=== PATIENT | male | born 1965 | race Caucasian/White ===

== ENCOUNTER 2020-02-27 08:01 | Inpatient (IN) | payer MEDICARE, MEDICAID, SELFPAY ==
[2020-02-27] VITALS (22 sets, daily range): BP systolic 90–129; BP diastolic 55–74; PULSE 60–100; RESP 11–29; TEMP 36.5–37.8; O2SAT 92–99; BMI 32.9
--- NOTE | ~2020-02-27 | XR_ITS ---
EXAMINATION: XR chest 1V portable DATE: 03/03/2020 06:23 INDICATION: Shortness of breath TECHNIQUE: frontal view of the chest was obtained. COMPARISON: Chest radiograph dated 03/01/2020 FINDINGS: Slight improvement in the diffuse bilateral interstitial, linear and airspace opacities relatively sp aring the subpleural lungs. No pneumothorax or definitive pleural effusion. Cardiomegaly. Couple surg ical clips in the epigastric region. IMPRESSION: 1. Slight improvement in perihilar predominant bilateral lung disease which could represent pulmonary edema and/or pneumonia, atelectasis or some combination thereof. 2. Cardiomegaly. Reviewed, dictated and finalized at location A. IMPRESSION: 1. Slight improvement in perihilar predominant bilateral lung disease which cou ld represent pulmonary edema and/or pneumonia, atelectasis or some combination thereof. 2. Cardiomegaly.
--- NOTE | ~2020-02-27 | XR_ITS ---
EXAMINATION: XR barium swallow modified EXAM DATE: 02/28/2020 14:52 INDICATION: Dysphagia. TECHNIQUE: Modified barium esophagram was performed by myself to administered fluoroscopy, in conjun ction with speech pathologist who administered barium in varying consistencies as per speech patholog ist documentation. This was recorded on tape. The DAP for this procedure was 0.9 Gycm2. FINDINGS: Oral stage: Adequate function. Pharyngeal phase: Adequate function. Laryngeal penetration: Trace, ejected. Aspiration: None. Laryngeal sensitivity: Present. IMPRESSION: Patient tolerated oral feedings in the upright position. Please refer to speech patholo gist findings and specific feeding recommendations. Reviewed, dictated and finalized at location A. IMPRESSION: Patient tolerated oral feedings in the upright position. Please r efer to speech pathologist findings and specific feeding recommendations.
--- NOTE | ~2020-02-27 | XR_ITS ---
XR chest 1V portable DATE: 03/06/2020 14:44 INDICATION: Shortness of breath TECHNIQUE: Portable AP chest on 03/06/2020 at 1443 hours COMPARISON: 03/03/2020 portable AP chest at 0553 hours FINDINGS: Cardiomegaly. There is pulmonary vascular congestion and redistribution, but diminished reese ateral pulmonary relatively central and lower pulmonary infiltrates since 03/03/2020 consistent with improvement of pulmonary edema. IMPRESSION: Improved but incompletely resolved pulmonary edema since 03/03/2020 Reviewed, dictated and finalized at location A.
--- NOTE | ~2020-02-27 | XR_ITS ---
EXAMINATION: XR chest 1V portable DATE: 03/01/2020 06:32 INDICATION: Pneumonia TECHNIQUE: frontal view of the chest was obtained. COMPARISON: Chest radiograph dated 02/27/2020 FINDINGS: Bilateral perihilar predominant opacities, right greater than left but with interval worsening on the left. No pleural effusion or pneumothorax. Cardiomegaly. IMPRESSION: 1. Worsening perihilar predominant bilateral lung disease with worsening on the left which could repr esent pneumonia and/or asymmetric pulmonary edema. 2. Cardiomegaly. Reviewed, dictated and finalized at location A. IMPRESSION: 1. Worsening perihilar predominant bilateral lung disease with worsening on the left which could represent pneumonia and/or asymmetric pulmonary edema. 2. Cardiomegaly.
--- NOTE | ~2020-02-27 | XR_ITS ---
EXAMINATION: XR chest 1V portable INDICATION: Shortness of breath and chest pain TECHNIQUE: Portable AP chest at 0917 hours COMPARISON: None available FINDINGS: There are diffuse opacities throughout the right lung and opacities of the left mid and low er lung zones. No pleural effusion or pneumothorax is identified. The cardiomediastinal silhouette is normal for technique. IMPRESSION: 1. Diffuse opacities of the right lung and left mid and lower lung zones, consistent with pneumonia v ersus asymmetric pulmonary edema. Reviewed, dictated and finalized at location B. IMPRESSION: 1. Diffuse opacities of the right lung and left mid and lower lung zones, consi stent with pneumonia versus asymmetric pulmonary edema.
--- NOTE | 2020-02-27 08:30 | PC.NURSE ---
This RN unable to obtain IV access. Shiloh Counts called.
--- NOTE | 2020-02-27 08:53 | PC.NURSE ---
Respiratory here for pt
[2020-02-27 09:02] LABS: Alveolar/Arterial O2 Gradient 107.5 mmHg; Base Excess ABG 0.3 mEq/l (+/-2.0); Carboxyhemoglobin 0.4 % THb (0-2.0); Fractional Inspired Oxygen 30 %; Oxygen Content ABG 15.2 %vol (16.0-22.0); Oxygen Saturation ABG 90.6 % (95.0-100.0); Oxyhemoglobin 89.3 % THb (90.0-100.0); PCO2 ABG 40.8 mmHg (35.0-45.0); PO2 ABG 58.5 mmHg (80.0-100.0); PO2 FiO2 Ratio Arterial Blood 1.95 %; Reduced Hemoglobin 10.3 %THb (0-5.0); Total Hemoglobin 12.1 g/dL (12.0-18.0); pH ABG 7.406 (7.350-7.450)
[2020-02-27 09:03] LABS: Device NON-INVASIVE VENT; Site Drawn LEFT BRACHIAL
[2020-02-27 09:04] LABS: Non-Invasive Expiratory Pressure 10 CMH2O; Non-Invasive Inspiratory Pressure 18 CMH2O; Non-Invasive Vent Rate 4 /MIN
[2020-02-27 09:07] LABS: Basophils Percent Auto 0.4 % (0.2-1.2); Eosinophils Absolute Auto 0.2 K/mm3 (0-0.3); Eosinophils Percent Auto 3.6 % (0-4.4); Hematocrit 37.6 % (42.0-52.0); Hemoglobin 11.6 g/dL (14.0-18.0); Lymphocytes Absolute Auto 0.76 K/mm3 (0.9-3.2); Lymphocytes Percent Auto 16.1 % (18.3-44.2); Mean Corpuscular HGB Conc 30.9 g/dl (32-36); Mean Corpuscular Hemoglobin 25.2 pg (26-34); Mean Corpuscular Volume 81.6 fl (80-100); Mean Platelet Volume 9.6 fl (7.4-10.4); Monocytes Absolute Auto 0.1 K/mm3 (0.1-0.6); Monocytes Percent Auto 1.7 % (2.6-8.5); Neutrophils Absolute Auto 3.7 K/mm3 (1.3-6.7); Neutrophils Percent Auto 78.2 % (45.5-73.1); Platelet Count Result 313 k/mm3 (150-375); Red Blood Count 4.61 M/mm3 (4.6-6.20); Red Cell Distribution Width 14.4 % (11.5-14.5); White Blood Count 4.7 K/mm3 (4.5-10.0)
--- NOTE | 2020-02-27 09:08 | ED.SOB ---
HPI - SOB/Dyspnea General Chief Complaint: Shortness of Breath/Dyspnea Stated Complaint: SOB/CP History of Present Illness HPI Narrative: Patient is a 54-year-old male who presents the ER with sudden onset shortness of breath. Reports he began this morning. He has history of coronary disease as well as CHF and COPD. He is oxygen dependent at home on 4L , he was hypoxic in the 80s and O2 increased by EMS. He has some central pressure and tightness related to this shortness of breath. He is febrile. He reports 2 months ago he was admitted to [facility] for pneumonia. He was coded tested several times and it was negative each time. No known exposures at this time. Related Data Home Medications Medication Instructions Recorded Confirmed amitriptyline 150 02/27/20 amitriptyline 150 mg PO HS 02/27/20 02/27/20 amlodipine 5 02/27/20 aspirin 81 02/27/20 atorvastatin 40 mg PO DAILY 02/27/20 02/27/20 hydrochlorothiazide 12.5 02/27/20 iron 65 mg 02/27/20 losartan 100 mg PO DAILY 02/27/20 02/27/20 metoprolol tartrate 25 mg PO DAILY 02/27/20 02/27/20 morphine PO 02/27/20 pantoprazole PO 02/27/20 paroxetine HCl 40 mg PO QAM 02/27/20 02/27/20 Allergies Allergy/AdvReac Type Severity Reaction Status Date / Time losartan Allergy Unknown Verified 02/27/20 08:32 warfarin [From Coumadin] Allergy Other Verified 02/27/20 08:32 Review of Systems Review of Systems: All systems reviewed & are unremarkable except as noted in HPI and below Constitutional: Constitutional: Denies chills, Reports fever(s) and Reports weakness ENT: Denies nasal congestion and Denies sore throat Cardiovascular: Cardiovascular: Reports chest pain and Denies radiating jaw, neck or arm pain Respiratory: Respiratory: Reports chest congestion, Reports cough and Reports dyspnea Gastrointestinal: Gastrointestinal: Denies abdominal pain, Denies nausea and Denies vomiting [facility] Past Medical History Medical History (Updated 02/27/20 @ 13:04 by Shyam Mason MD) COPD (chronic obstructive pulmonary disease) Coronary artery disease History of CHF (congestive heart failure) History of left heart catheterization Hyperlipidemia Hypertension Obstructive sleep apnea Pulmonary embolism Recurrent pneumonia Surgical History Surgical History (Updated 02/27/20 @ 13:00 by Shyam Mason MD) History of back surgery History of percutaneous coronary intervention 6 cardiac stents Social History Social History (Updated 02/27/20 @ 13:00 by Shyam Mason MD) Substance use: never Gender identity (if verbalized by the patient): Male Exam Narrative: Exam Narrative: GENERAL: ill-appearing, well-nourished, and in moderate distress. HEAD: Normocephalic, atraumatic. EYES: PERRL and EOMI. CHEST: Coarse rales throughout, moderate respiratory distress. HEART: Regular rate and rhythm. Normal peripheral pulses. ABDOMEN: Soft, nontender, nondistended. EXTREMITIES: Normal range of motion. No edema. SKIN: Cool, pale, diaphoretic, no rash. NEURO: Alert and oriented x3. PSYCH: Appropriately anxious with normal thought content. Course Vital Signs Vital signs: Vital Signs Temperature 100.1 F H 02/27/20 08:18 Pulse Rate 81 02/27/20 08:18 Respiratory Rate 28 H 02/27/20 08:18 Blood Pressure 129/74 02/27/20 08:18 Pulse Oximetry 93 02/27/20 08:18 Temperature 100.1 F H 02/27/20 08:18 Pulse Rate 66 02/27/20 12:37 Respiratory Rate 11 L 02/27/20 12:37 Blood Pressure 99/61 L 02/27/20 12:20 Pulse Oximetry 94 02/27/20 12:37 MDM - SOB/Dyspnea Lab Data Result diagrams: 02/27/20 08:50 02/27/20 08:50 Labs: Lab Results 02/27/20 02/27/20 02/27/20 Range/Units 08:50 08:50 08:50 WBC 4.7 (4.5-10.0) K/mm3 RBC 4.61 (4.6-6.20) M/mm3 Hgb 11.6 L (14.0-18.0) g/dL Hct 37.6 L (42.0-52.0) % MCV 81.6 (80-100) fl MCH 25.2 L (26-34) pg MCHC 30.9 L (32-36) g/dl RDW 14.4
[2020-02-27 09:16] LABS: INR 1.1; Partial Thromboplastin Time 22.3 SECONDS (22.3-36.8); Prothrombin Time 13.7 Seconds (11.1-14.7)
[2020-02-27 09:18] LABS: Lactic Acid Reflex 3.7 mmol/L (0.7-2.1)
[2020-02-27 09:19] LABS: Alanine Aminotransferase 17 U/L (4-50); Albumin Level 3.9 g/dL (3.5-5.1); Alkaline Phosphatase 101 U/L (38-126); Anion Gap 11.4 mmol/L (7-16); Aspartate Amino Transferase 23 U/L (17-59); Bilirubin,Total 0.5 mg/dL (0.2-1.3); Blood Urea Nitrogen 15 mg/dL (9-20); Calcium 8.3 mg/dL (8.4-10.2); Carbon Dioxide 28 mmol/L (22-30); Chloride 102 mmol/L (98-107); Estimated CRCL calculation 76 ml/min; Estimated Glomerular Filt Rate > 60; Glucose 151 mg/dL (75-110); Potassium 3.4 mmol/L (3.4-5.0); Sodium 138 mmol/L (137-145)
[2020-02-27 09:28] LABS: NT Pro B Type Natriuretic Pept 351 PG/ML (5-100)
[2020-02-27 09:54] LABS: Troponin I 0.043 ng/mL (0.000-0.034)
[2020-02-27] MEDS: ASPIRIN 81 MG CHEWABLE TABLET 324 MG PO (10:42)
--- NOTE | 2020-02-27 10:57 | ECG_ITS ---
Measurements Intervals [place] Rate: 84 P: 40 GA: 106 QRS: 19 QRSD: 86 T: 65 QT: 387 QTc: 458 Interpretive Statements SINUS OR ECTOPIC ATRIAL RHYTHM WITH SHORT GA INTERVAL ANTEROLATERAL INFARCT, AGE INDETERMINATE HIGH LATERAL INFARCT, AGE INDETERMINATE BASELINE ARTIFACT- II, III, AVR, AVL, AVF, V1-V6 ABNORMAL ECG Electronically Signed On 02-27-2020 11:08:16 CDT by Yanick Toure D.O.
[2020-02-27] MEDS: SODIUM CHLORIDE 0.9% IV 1,000 ML 999 ML IV CONT (11:26)
[2020-02-27 11:54] LABS: CRP 6.6 mg/dL (<1.0); Lactate Dehydrogenase 526 U/L (313-618)
[2020-02-27 12:07] LABS: Reflex Lactic Acid Yes or No Add Lactic
[2020-02-27 13:12] LABS: Lactic Acid 3.3 mmol/L (0.7-2.1)
--- NOTE | 2020-02-27 13:40 | ECG_ITS ---
Measurements Intervals [place] Rate: 66 P: 37 VT: 165 QRS: 16 QRSD: 93 T: 78 QT: 433 QTc: 455 Interpretive Statements SINUS RHYTHM ANTEROLATERAL INFARCT, AGE INDETERMINATE HIGH LATERAL INFARCT, AGE INDETERMINATE ABNORMAL ECG Electronically Signed On 02-27-2020 15:45:19 CDT by Yanick Toure D.O.
--- NOTE | 2020-02-27 14:30 | PM.IMHP ---
H&P: HPI History of Present Illness Date/Time: 02/27/20 14:30 Chief complaint: Shortness of breath. Narrative: Moises Seth Jr is a 54-year-old male with history of coronary artery disease, congestive heart failure, paroxysmal atrial fibrillation, COPD, chronic respiratory failure on p.r.n. home oxygen, and pulmonary embolism on Xarelto who presented to the emergency department earlier this morning via EMS from home for evaluation of shortness of breath. This morning he felt short of breath upon waking, perhaps even being woken from sleep due to the shortness of breath. He wears 4 liters of oxygen at nighttime and despite this, he felt like her could not get in enough oxygen. Additionally, he was also experiencing central chest pressure/tightness which he relates to the shortness of breath. He was started on BiPAP in the emergency department and has been on that intermittently throughout the day as needed. Also, he continues to have intermittent midsternal chest pressure, which does not radiate. He gives no aggravating or alleviating factors with regards to that, but does mention that the pain is similar to when he has had cardiac stents in the past. He has also had intermittent subjective fever and chills. He has a wet cough always and this is unchanged. He goes on to say that he has been hospitalized for pneumonia about every 3 months in the last year. With further questioning, it sounds like he suffers from pretty significant GERD and has frequent dysphagia with liquids. At one point time there was concerns for aspiration, but he is not certain whether not he actually had a swallow study. He was last hospitalized at [facility] in [place] at the beginning of December 2019, with pneumonia. At that time he was also had a cardiac catheterization, which apparently showed no significant findings. At the time my evaluation he is feeling better on the BiPAP and he is hungry. He is not currently having chest pain. No pleuritic pain, orthopnea, PND, or lower extremity edema. He is compliant with his home medications. He denies sick contacts. No sinus congestion, rhinorrhea, otalgia, or odynophagia. He denies nausea, vomiting, and diarrhea. Of note, he has never been seen at this facility before as he and his recently moved to the area. Review of Systems Review of Systems: Narrative: Twelve systems were reviewed with pertinent positives and negatives as per HPI. No headache. No recent travel or sick contacts. He suffers from pretty significant GERD and it sounds as though he had endoscopy done several years back and in fact had a Keith fundoplication, without benefit. He denies having history of sleep apnea, but is on 4 liters nasal cannula at nighttime. It does not sound like he ever wore a CPAP. He does have a history of pulmonary embolism for which she was initially on warfarin and he is now on Xarelto. Except as documented, all other systems were reviewed and are negative [facility] Past Medical History Medical History (Updated 02/27/20 @ 19:09 by Steph Vasquez PA-C) Chronic anemia Chronic back pain On long-term opioid therapy. Chronic obstructive pulmonary disease Chronic respiratory failure with hypoxia On 4 liters nasal cannula at nighttime. Congestive heart failure Coronary artery disease Gastroesophageal reflux disease Hyperlipidemia Hypertension Pulmonary embolism Surgical History Surgical History (Updated 02/27/20 @ 18:59 by Steph Vasquez PA-C) History of back surgery x3. History of fasciotomy Right forearm. History of left heart catheterization History of Keith fundoplication History of percutaneous coronary intervention Cardiac stent x6. Family History Family History Father Diabetes mellitus Mother Hypertension Congestive heart failure Social History Social History (Updated 02/27/20 @ 19:00 by Steph Vasquez PA-C) Socia
[2020-02-27] MEDS: HEPARIN SODIUM 5,000 UNITS/ML VIAL 4000 UNITS IV PUSH (14:41)
--- NOTE | 2020-02-27 14:45 | PC.NURSE ---
Pts manual BP 90/60. Informed Dr. Mason of this
--- NOTE | 2020-02-27 15:12 | PC.NURSE ---
Respiratory here to take pt off BIPAP and place on high flow NC
--- NOTE | 2020-02-27 15:14 | PC.NURSE ---
Pt taken off BIPAP and placed on High flow NC per Dr. Mason.
--- NOTE | 2020-02-27 15:27 | PC.NURSE ---
Pt placed back on BIPAP due to pt not keeping NC in nose.
--- NOTE | 2020-02-27 16:57 | ADMIMU ---
This patient, Moises Seth Jr, was admitted to IMU status, and placed in Intensive Care Unit-7. Patient/family oriented to hospital policies and general routines including ID bracelet, bed and alarms, visiting hours, pain management, procedures, bathroom and other care routines, personal items, smoking policy, room service/diet, and visiting hours. Valuables list has been completed. Information on how to activate the Rapid Response Team has been discussed. Patient/Family are encouraged to report perceived risks to care and to ask questions if they do not understand what they are told or what they should do.
[2020-02-27] MEDS: HEPARIN SOD/D5W 100 UNITS/ML 25,000 UNITS/250 ML BAG 9 UNITS IV CONT (18:03)
[2020-02-27] MEDS: SODIUM CHLORIDE 0.9% IV 1,000 ML 100 ML IV CONT (18:06)
[2020-02-27] MEDS: PANTOPRAZOLE 40 MG TABLET PO (20:13)
[2020-02-27] MEDS: AMITRIPTYLINE HCL 25 MG TABLET 150 MG PO (20:13)
[2020-02-27] MEDS: GABAPENTIN 400 MG CAPSULE 800 MG PO (20:13)
[2020-02-28] VITALS (15 sets, daily range): BP systolic 114–157; BP diastolic 73–97; PULSE 49–64; RESP 11–21; TEMP 35.7–36.6; O2SAT 92–100
[2020-02-28 00:21] LABS: Partial Thromboplastin Time 37.4 SECONDS (22.3-36.8)
[2020-02-28] MEDS: HEPARIN SODIUM 5,000 UNITS/ML VIAL 4000 UNITS IV PUSH ×2 (00:55→15:46)
[2020-02-28] MEDS: GABAPENTIN 400 MG CAPSULE 800 MG PO ×3 (06:21→21:31)
[2020-02-28 07:51] LABS: Basophils Absolute Auto 0.1 K/mm3 (0.0-0.1); Basophils Percent Auto 0.3 % (0.2-1.2); Hematocrit 27.4 % (42.0-52.0); Hemoglobin 8.7 g/dL (14.0-18.0); Immature Granulocyte Absolute 0.16 K/mm3 (0.00-0.031); Immature Granulocyte Percent A 0.8 % (0-0.5); Lymphocytes Percent Auto 6.3 % (18.3-44.2); Mean Corpuscular HGB Conc 31.8 g/dl (32-36); Mean Corpuscular Hemoglobin 25.4 pg (26-34); Mean Corpuscular Volume 80.1 fl (80-100); Mean Platelet Volume 9.8 fl (7.4-10.4); Monocytes Absolute Auto 0.7 K/mm3 (0.1-0.6); Monocytes Percent Auto 3.4 % (2.6-8.5); Neutrophils Absolute Auto 18.3 K/mm3 (1.3-6.7); Neutrophils Percent Auto 89.2 % (45.5-73.1); Platelet Count Result 233 k/mm3 (150-375); Red Blood Count 3.42 M/mm3 (4.6-6.20); Red Cell Distribution Width 14.5 % (11.5-14.5); White Blood Count 20.5 K/mm3 (4.5-10.0)
[2020-02-28 08:03] LABS: Lactic Acid 1.1 mmol/L (0.7-2.1)
[2020-02-28 08:09] LABS: Partial Thromboplastin Time 59.5 SECONDS (22.3-36.8)
[2020-02-28 08:16] LABS: Alanine Aminotransferase 18 U/L (4-50); Albumin Level 3.2 g/dL (3.5-5.1); Alkaline Phosphatase 55 U/L (38-126); Anion Gap 6 mmol/L (8-16); Aspartate Amino Transferase 60 U/L (17-59); Bilirubin,Total 0.5 mg/dL (0.2-1.3); Blood Urea Nitrogen 22 mg/dL (9-20); CRP 23.9 mg/dL (<1.0); Calcium 8.4 mg/dL (8.4-10.2); Carbon Dioxide 26 mmol/L (22-30); Chloride 106 mmol/L (98-107); Estimated CRCL calculation 107 ml/min; Estimated Glomerular Filt Rate > 60; Glucose 108 mg/dL (75-110); Potassium 4.3 mmol/L (3.4-5.0); Sodium 138 mmol/L (137-145)
[2020-02-28] MEDS: HEPARIN SODIUM 5,000 UNITS/ML VIAL 3000 UNITS IV PUSH (08:43)
[2020-02-28] MEDS: ATORVASTATIN 40 MG TABLET PO (08:50)
[2020-02-28] MEDS: ASPIRIN 81 MG CHEWABLE TABLET PO (08:50)
[2020-02-28] MEDS: FERROUS SULFATE 324 MG TABLET PO (08:52)
[2020-02-28] MEDS: PARoxetine 20 MG TABLET 40 MG PO (08:52)
[2020-02-28] MEDS: METOPROLOL SUCCINATE EXT REL 25 MG TABCR PO (08:53)
[2020-02-28] MEDS: PANTOPRAZOLE 40 MG TABLET PO ×2 (08:53→21:30)
[2020-02-28] MEDS: LOSARTAN POTASSIUM 100 MG TABLET PO (08:54)
[2020-02-28] MEDS: FLUoxetine HCL 20 MG CAPSULE 40 MG PO (08:54)
[2020-02-28 09:19] LABS: Thyroid Stimulating Hormone Reflex 0.739 uIU/mL (0.465-4.68)
[2020-02-28 09:50] LABS: Hemoglobin A1C 5.2 % (<5.7)
--- NOTE | 2020-02-28 13:44 | PM.CNCAR ---
Assessment and Plan Assessment and plan (1) Gastroesophageal reflux disease: Code(s): K21.9 - Gastro-esophageal reflux disease without esophagitis Status: Acute (2) Coronary artery disease: Code(s): I25.10 - Atherosclerotic heart disease of [place] coronary artery without angina pectoris Status: Acute Assessment and Plan: pt with Hx of CAD recent cath negative cont medical management (3) Congestive heart failure: Code(s): I50.9 - Heart failure, unspecified Status: Acute Assessment and Plan: Will arrange for ECHO to eval LV function when feasible cont gentle diuresis monitor electolytes and kidney function (4) Hypertension: Code(s): I10 - Essential (primary) hypertension Status: Acute Assessment and Plan: Well controlled cont meds (5) Hyperlipidemia: Code(s): E78.5 - Hyperlipidemia, unspecified Status: Acute (6) Pneumonia: Code(s): J18.9 - Pneumonia, unspecified organism Status: Acute Assessment and Plan: management per PC (7) Sepsis: Code(s): A41.9 - Sepsis, unspecified organism Status: Acute Assessment and Plan: WBC > 20k (8) Respiratory failure: Code(s): J96.90 - Respiratory failure, unspecified, unspecified whether with hypoxia or hypercapnia Status: Acute (9) Person under investigation for COVID-19: Code(s): Z20.828 - Contact with and (suspected) exposure to other viral communicable diseases Status: Acute (10) Elevated troponin: Code(s): R79.89 - Other specified abnormal findings of blood chemistry Status: Acute Assessment and Plan: Probably due to demand ischemia in setting of sepsis EKG without acute changes agree with Heparin drip for 48 hrs treat underlying infectious process Thank you for consult. Chandana davis. History of Present Illness History of Present Illness Consult date/time: 02/28/20 13:44 Mr. Seth is a 54 y/o Mwith PMH of CAD, CHF, COPD on home oxygen who presented to [facility] due to SOB. Pt is a poor historian. Hx is obtained predominantly from medical records and nursing staff. Upon current presentation pt was desaturating to 80's and was started on BIPAP and then admitted to ICU as COVID PUI. CXR showed R - sided pneumonia. Labs showed lactic acidosis and elevated troponin. EKG no acute changes. Pt had 2 months ago pneumonia. At that time was hospitalized at [facility] in [facility]. He had cath which was negative during that hospitalization. He moved recently to area close to [facility]. Pt was evaluated while in ICU, d/w pt's nurse. Reason For Visit: Shortness of breath. [facility] Past Medical History Medical History (Updated 02/27/20 @ 19:09 by Steph Vasquez PA-C) Chronic anemia Chronic back pain On long-term opioid therapy. Chronic obstructive pulmonary disease Chronic respiratory failure with hypoxia On 4 liters nasal cannula at nighttime. Congestive heart failure Coronary artery disease Gastroesophageal reflux disease Hyperlipidemia Hypertension Pulmonary embolism Surgical History Surgical History (Updated 02/27/20 @ 18:59 by Steph Vasquez PA-C) History of back surgery x3. History of fasciotomy Right forearm. History of left heart catheterization History of Keith fundoplication History of percutaneous coronary intervention Cardiac stent x6. Family History Family History Father Diabetes mellitus Mother Hypertension Congestive heart failure Social History Social History (Updated 02/27/20 @ 19:00 by Steph Vasquez PA-C) Social History: Surrogate decision maker: Jenny Seth, spouse. Code status: Full code. Smoking status: Former smoker Alcohol intake: never Substance use: never Substance use type: does not use Additional living arrangements comments: Lives in [facility]
[2020-02-28 13:48] LABS: SARS-CoV-2 RNA PCR Negative
--- NOTE | 2020-02-28 15:16 | PCSTNOTE ---
Modified barium swallow study complete. Please see ST evaluation for details and diet recommendations.
[2020-02-28] MEDS: BENZONATATE 100 MG CAPSULE 200 MG PO ×2 (15:39→21:31)
[2020-02-28] MEDS: HEPARIN SOD/D5W 100 UNITS/ML 25,000 UNITS/250 ML BAG 14 UNITS IV CONT (15:40)
--- NOTE | 2020-02-28 16:19 | ECHO_ITS ---
Patient Info Name: Moises Seth Age: 54 years : 1965 Gender: Male Ht: 68 in Wt: 200 lbs BSA: 2.11 m2 HR: 59 bpm Technical Quality: Fair Exam Date: 02/28/2020 10:52 AM Exam Location: [facility] Pulmonary Patient Status: Inpatient Admit Date: 02/28/2020 Staff Ordering Physician: Steph Vasquez PA-C Rock Crushing Machine Operator: Oliva Crump RDCS Attending Provider: Reji Johansen MD Referring Physician: Pedro VALDEZ; Exam Type: CA echo dop color flow w con Study Info Complete two-dimensional, color flow and Doppler transthoracic echocardiogram is performed with contrast to opacify the left ventricle and to improve the deliniation of the left ventricle endocardial borders. Contrast/Agitated Saline Contrast/Ag. Saline: Definity Amount: 2.00 ml Summary 1. Technically difficult study with limited views. 2. Left ventricular chamber dimension is normal. 3. Left ventricular wall thickness is borderline increased. 4. Left ventricular systolic function is normal with an ejection fraction by Biplane Method of Discs of 60 %. 5. Right ventricular chamber dimension is mildly enlarged. 6. Right ventricular systolic function is normal. 7. Left atrial chamber dimension is moderately enlarged. Left Ventricle Left ventricular chamber dimension is normal. Left ventricular wall thickness is borderline increased. Left ventricular systolic function is normal with an ejection fraction by Biplane Method of Discs of 60 %. Normal diastolic function for age. Right Ventricle Right ventricular wall thickness is normal. Right ventricular chamber dimension is mildly enlarged. Right ventricular systolic function is normal. Ventricular Septum Intact interventricular septum visualized by 2D imaging. Left Atria Left atrial chamber dimension is moderately enlarged. Right Atria Right atrial chamber dimension is normal. Atrial Septum Interatrial septum not well visualized by 2D imaging. Aortic Valve Aortic valve is not well visualized. There is no aortic valve regurgitation. There is no aortic valve stenosis. Pulmonic Valve Pulmonary valve is not well visualized. There is trace pulmonic regurgitation. There is no pulmonic valve stenosis. Mitral Valve Mitral valve is not well visualized. There is trace mitral valve regurgitation. There is no mitral valve stenosis. Tricuspid Valve The tricuspid valve is not well visualized. There is mild tricuspid valve regurgitation. There is no significant tricuspid valve stenosis. No pulmonary hypertension, estimated pulmonary arterial systolic pressure is 17 mmHg. Pericardium/Pleural Pericardium is normal in appearance with no evidence for significant pericardial effusion. Inferior Vena Cava Inferior vena cava is not well visualized. Aorta The aortic root size at the sinus of Valsalva is normal. Left Ventricular Outflow Tract Name Value Normal LVOT 2D LVOT Diameter 2.53 cm LVOT Doppler LVOT Peak Gradient 5 mmHg LVOT Mean Gradient 2 mmHg LVOT VTI
--- NOTE | 2020-02-28 17:00 | PM.IMPN ---
Progress Note: A&P Assessment and Plan (1) Sepsis: Code(s): A41.9 - Sepsis, unspecified organism Status: Acute Assessment and Plan: Present on admission and supported by low-grade fever and elevated lactic acid level in the setting of pneumonia. Blood pressures have also been a little soft. Given history of congestive heart failure, he will receive cautious IV fluid rehydration. He received 1 liter normal saline emergency department with some improvement in his lactic acid level. At this time I will give him another liter over the course of several hours and repeat lactic acid level to ensure it has normalized. Blood cultures have been obtained and are pending. 02/28/20 17:00 Patient is a 54-year-old male with chronic respiratory failure on home oxygen 4 L nasal cannula, with history of COPD, coronary artery disease, congestive heart failure, recently was admitted [facility] 2 months ago with pneumonia, early today at home while on 4 L oxygen patient felt short of breath and unable to get enough oxygen EMS was called and patient was brought to emergency depart he was placed on BiPAP which did improve his symptoms, patient is diagnosed with pneumonia and being treated with Rocephin azithromycin, he tropes elevated and climbed patient is seen by licensed journeyman electrician suspect demand ischemia due to hypoxia unlikely acute coronary syndrome however patient is on heparin, for his COPD patient is being treated with dexamethasone and updraft and will continue to monitor, currently patient is feeling much better compared to when he arrived denies any chest pain shortness of breath palpitation fever or chills. (2) Person under investigation for COVID-19: Code(s): Z20.828 - Contact with and (suspected) exposure to other viral communicable diseases Status: Acute Assessment and Plan: SARS-CoV-2 by PCR swab pending at this time. He has been started on dexamethasone 6 milligrams q.day. In the interim, he will be placed in contact, droplet, and airborne isolation. (3) Acute and chronic respiratory failure with hypoxia: Code(s): J96.21 - Acute and chronic respiratory failure with hypoxia Status: Acute Assessment and Plan: Patient on 4 liters nasal cannula p.r.n. at home, requiring 5 liters to maintain oxygen saturations at this time. (4) Elevated troponin: Code(s): R79.89 - Other specified abnormal findings of blood chemistry Status: Acute Assessment and Plan: Initially the patient thought his chest tighness was due to shortness of breath, however his troponin has jumped. His Xarelto is currently on hold, and he has been started on a heparin drip per cardiology request. Records will be requested from [facility] given reports of fairly recent cardiac catheterization. (5) Pneumonia: Code(s): J18.9 - Pneumonia, unspecified organism Status: Acute Assessment and Plan: He has been started on azithromycin and ceftriaxone for possible bacterial pneumonia, pending SARS-CoV-2 testing. Obtain sputum culture and urine studies to send for Legionella and strep pneumoniae antigens. Swallow study in a.m. to rule out aspiration, given reports of dysphagia with liquids. (6) Chronic anemia: Code(s): D64.9 - Anemia, unspecified Status: Acute Assessment and Plan: On daily iron supplementation. (7) Hypertension: Code(s): I10 - Essential (primary) hypertension Status: Acute Assessment and Plan: Blood pressures were reviewed and they have been a bit soft, in the 90s to l
--- NOTE | 2020-02-28 18:33 | PC.NURSE ---
This patient, Moises Seth Jr, was transferred to [ [id number]] on 02/28/20 at 1834. Personal belongings sent with patient. Belongings list checked and signed with receiving [ ]. Report given to [ TANNA Zuniga]. Appropriate documentation sent with patient.
--- NOTE | 2020-02-28 18:34 | PC.NURSE ---
This patient, Moises Seth Jr, was received from ICU 7 on 02/28/20 at 1715. Report taken from Natasha CISSE Personal belongings list checked and signed. Patient/family oriented to unit policies and routines
[2020-02-28] MEDS: MORPHINE SULFATE 30 MG TABCR PO (21:29)
[2020-02-28] MEDS: guaiFENesin 12 HR 600 MG TABCR PO (21:30)
[2020-02-28] MEDS: AMITRIPTYLINE HCL 25 MG TABLET 150 MG PO (21:31)
[2020-02-28 22:50] LABS: Partial Thromboplastin Time 72.9 SECONDS (22.3-36.8)
[2020-02-29] VITALS (15 sets, daily range): BP systolic 121–150; BP diastolic 74–92; PULSE 45–90; RESP 14–26; TEMP 36.1–36.6; O2SAT 93–100
[2020-02-29 04:55] LABS: Hematocrit 28.6 % (42.0-52.0); Hemoglobin 8.9 g/dL (14.0-18.0); Mean Corpuscular HGB Conc 31.1 g/dl (32-36); Mean Corpuscular Hemoglobin 25.4 pg (26-34); Mean Corpuscular Volume 81.7 fl (80-100); Mean Platelet Volume 10.3 fl (7.4-10.4); Platelet Count Result 271 k/mm3 (150-375); Red Cell Distribution Width 14.6 % (11.5-14.5); White Blood Count 22.2 K/mm3 (4.5-10.0)
[2020-02-29] MEDS: HEPARIN SODIUM 5,000 UNITS/ML VIAL 3000 UNITS IV PUSH (05:19)
[2020-02-29] MEDS: HEPARIN SOD/D5W 100 UNITS/ML 25,000 UNITS/250 ML BAG 19 UNITS IV CONT ×2 (05:31→18:26)
[2020-02-29] MEDS: GABAPENTIN 400 MG CAPSULE 800 MG PO ×3 (05:45→21:34)
[2020-02-29] MEDS: BENZONATATE 100 MG CAPSULE 200 MG PO ×3 (05:45→21:34)
[2020-02-29] MEDS: MORPHINE SULFATE 30 MG TABCR PO ×3 (08:10→21:33)
[2020-02-29] MEDS: PARoxetine 20 MG TABLET 40 MG PO (08:11)
[2020-02-29] MEDS: FLUoxetine HCL 20 MG CAPSULE 40 MG PO (08:11)
[2020-02-29] MEDS: PANTOPRAZOLE 40 MG TABLET PO ×2 (08:11→21:34)
[2020-02-29] MEDS: LOSARTAN POTASSIUM 100 MG TABLET PO (08:11)
[2020-02-29] MEDS: guaiFENesin 12 HR 600 MG TABCR PO ×2 (08:11→21:34)
[2020-02-29] MEDS: METOPROLOL SUCCINATE EXT REL 25 MG TABCR PO (08:11)
[2020-02-29] MEDS: ATORVASTATIN 40 MG TABLET PO (08:12)
[2020-02-29] MEDS: ASPIRIN 325 MG TABLET PO (08:12)
[2020-02-29] MEDS: FERROUS SULFATE 324 MG TABLET PO (08:12)
[2020-02-29 09:42] LABS: Anion Gap 5 mmol/L (8-16); Blood Urea Nitrogen 23 mg/dL (9-20); Calcium 8.5 mg/dL (8.4-10.2); Carbon Dioxide 27 mmol/L (22-30); Chloride 105 mmol/L (98-107); Estimated CRCL calculation 108 ml/min; Estimated Glomerular Filt Rate > 60; Glucose 108 mg/dL (75-110); Potassium 3.8 mmol/L (3.4-5.0); Sodium 137 mmol/L (137-145)
[2020-02-29 12:28] LABS: Partial Thromboplastin Time 89.8 SECONDS (22.3-36.8)
--- NOTE | 2020-02-29 13:00 | PM.IMPN ---
Progress Note: A&P Assessment and Plan (1) Sepsis: Code(s): A41.9 - Sepsis, unspecified organism Status: Acute Assessment and Plan: Present on admission and supported by low-grade fever and elevated lactic acid level in the setting of pneumonia. Blood pressures have also been a little soft. Given history of congestive heart failure, he will receive cautious IV fluid rehydration. He received 1 liter normal saline emergency department with some improvement in his lactic acid level. At this time I will give him another liter over the course of several hours and repeat lactic acid level to ensure it has normalized. Blood cultures have been obtained and are pending. 02/29/20 13:00 Patient is a 54-year-old male with chronic respiratory failure on home oxygen 4 L nasal cannula, with history of COPD, coronary artery disease, congestive heart failure, recently was admitted [facility] 2 months ago with pneumonia, early today at home while on 4 L oxygen patient felt short of breath and unable to get enough oxygen EMS was called and patient was brought to emergency depart he was placed on BiPAP which did improve his symptoms, patient is diagnosed with pneumonia and being treated with Rocephin azithromycin, he tropes elevated and climbed patient is seen by account executive metalworking suspect demand ischemia due to hypoxia unlikely acute coronary syndrome however patient is on heparin, for his COPD patient is being treated with dexamethasone and updraft, today patient is feeling much better not a short of breath, denies any chest pain palpitation fever or chills patient remains clinically stable repeat chest x-ray tomorrow, patient will be seen by account executive metalworking tomorrow for further recommendation regarding his elevated tropes, will plan tomorrow (2) Person under investigation for COVID-19: Code(s): Z20.828 - Contact with and (suspected) exposure to other viral communicable diseases Status: Acute Assessment and Plan: SARS-CoV-2 by PCR swab pending at this time. He has been started on dexamethasone 6 milligrams q.day. In the interim, he will be placed in contact, droplet, and airborne isolation. (3) Acute and chronic respiratory failure with hypoxia: Code(s): J96.21 - Acute and chronic respiratory failure with hypoxia Status: Acute Assessment and Plan: Patient on 4 liters nasal cannula p.r.n. at home, requiring 5 liters to maintain oxygen saturations at this time. (4) Elevated troponin: Code(s): R79.89 - Other specified abnormal findings of blood chemistry Status: Acute Assessment and Plan: Initially the patient thought his chest tighness was due to shortness of breath, however his troponin has jumped. His Xarelto is currently on hold, and he has been started on a heparin drip per cardiology request. Records will be requested from [facility] given reports of fairly recent cardiac catheterization. (5) Pneumonia: Code(s): J18.9 - Pneumonia, unspecified organism Status: Acute Assessment and Plan: He has been started on azithromycin and ceftriaxone for possible bacterial pneumonia, pending SARS-CoV-2 testing. Obtain sputum culture and urine studies to send for Legionella and strep pneumoniae antigens. Swallow study in a.m. to rule out aspiration, given reports of dysphagia with liquids. (6) Chronic anemia: Code(s): D64.9 - Anemia, unspecified Status: Acute Assessment and Plan: On daily iron supplementation. (7) Hypertension: Code(s): I10 - Essential (primary) hypertension
--- NOTE | 2020-02-29 13:00 | PC.NURSE ---
This patient, Moises Seth Jr., was transferred to [facility] on 02/29/20 at 1300. Personal belongings sent with patient. Belongings list checked. Report given to Gabriela CISSE. Appropriate documentation sent with patient.
--- NOTE | 2020-02-29 13:38 | PM.PNCARD ---
Progress Note: A&P Assessment and Plan (1) Dysphagia: Code(s): R13.10 - Dysphagia, unspecified Status: Acute (2) Gastroesophageal reflux disease: Code(s): K21.9 - Gastro-esophageal reflux disease without esophagitis Status: Acute Assessment and Plan: Pt states that has severe GERD. GI eval on outpt basis would be beneficial (3) Coronary artery disease: Code(s): I25.10 - Atherosclerotic heart disease of [place] coronary artery without angina pectoris Status: Acute Assessment and Plan: stable. Had cath 2 months ago at [facility] which was negative. Cont meds (4) Hyperlipidemia: Code(s): E78.5 - Hyperlipidemia, unspecified Status: Acute Assessment and Plan: cont statin (5) Hypertension: Code(s): I10 - Essential (primary) hypertension Status: Acute Assessment and Plan: well controlled cont meds (6) Pneumonia: Code(s): J18.9 - Pneumonia, unspecified organism Status: Acute Assessment and Plan: Management per PC (7) Sepsis: Code(s): A41.9 - Sepsis, unspecified organism Status: Acute (8) Elevated troponin: Code(s): R79.89 - Other specified abnormal findings of blood chemistry Status: Acute Assessment and Plan: No acute EKG changes Probably due to supply/demand mismatch. cont meds including clopidogrel which he used to take (9) Respiratory failure: Code(s): J96.90 - Respiratory failure, unspecified, unspecified whether with hypoxia or hypercapnia Status: Acute (10) Person under investigation for COVID-19: Code(s): Z20.828 - Contact with and (suspected) exposure to other viral communicable diseases Status: Acute Assessment and Plan: serology negative Subjective Date/time seen: 02/29/20 13:38 Pt feels fine today. Currently on telemetry floor. States that had multiple pneumonias over last few years. Probably aspiration - had severe GERD. Pt was seen and examine. Chart reviewed, case d/w pt's nurse. Review of Systems Review of Systems: All systems reviewed & are unremarkable except as noted in HPI and below Constitutional: Constitutional: Reports as per HPI Eyes: Eyes: Reports as per HPI ENT: Reports system reviewed and no additional complaints, except as documented and Reports as per HPI Cardiovascular: Cardiovascular: Reports as per HPI Respiratory: Respiratory: Reports as per HPI Gastrointestinal: Gastrointestinal: Reports as per HPI Genitourinary: Genitourinary: Reports as per HPI Musculoskeletal: Musculoskeletal: Reports as per HPI Exam Const: General: no acute distress Nutritional Appearance: well nourished Orientation/consciousness: patient oriented x3 HENMT: Head: normal to inspection and atraumatic Ears: hearing grossly normal bilaterally Face and sinus: normal facial exam Eyes: General: appearance normal, both eyes and all related structures Pupils: Equal, round and reactive pupils present EOM: EOMs intact bilaterally Neck: Neck: supple Chest: Chest palpation & inspection: normal inspection of the chest Resp: Effort & Inspection: normal respiratory effort and no respiratory distress Auscultation: clear to auscultation bilaterally Cardio: Jugular venous distension: no JVD Rate: regular rate Heart sounds: S1 normal heart sound present, S2 normal heart sound present and no murmurs Peripheral pulses: Peripheral pulses 2+ throughout GI: GI Palp: No abdominal tenderness Auscultation: normal bowel sounds Skin: General skin exam: normal color Neuro: General: patient oriented x3 Cranial nerves: Yes Equal, round and reactive pupils present Extrem: General: normal to inspection and no clubbing, cyanosis or edema Objective Data Vital Signs Vital Signs: Vital Signs - 24 hr 02/28/20 14:00 02/28/20 16:00 02/28/20 18:03 Temperature Pulse Rate 62 60 62 Respiratory Rate 14 Blood Pressure 137/83 Pulse Oxi
[2020-02-29 18:37] LABS: Partial Thromboplastin Time 84.7 SECONDS (22.3-36.8)
[2020-02-29] MEDS: AMITRIPTYLINE HCL 25 MG TABLET 150 MG PO (21:33)
[2020-03-01] VITALS (14 sets, daily range): BP systolic 132–157; BP diastolic 73–93; PULSE 42–68; RESP 13–20; TEMP 36.2–37; O2SAT 98–100
[2020-03-01 01:15] LABS: Partial Thromboplastin Time 88.5 SECONDS (22.3-36.8)
[2020-03-01] MEDS: MORPHINE SULFATE 30 MG TABCR PO ×3 (05:35→21:01)
[2020-03-01] MEDS: GABAPENTIN 400 MG CAPSULE 800 MG PO ×3 (05:35→21:01)
[2020-03-01] MEDS: BENZONATATE 100 MG CAPSULE 200 MG PO ×3 (05:36→21:01)
[2020-03-01 06:08] LABS: Partial Thromboplastin Time 95.5 SECONDS (22.3-36.8)
[2020-03-01 06:11] LABS: Hematocrit 29.3 % (42.0-52.0); Hemoglobin 9.2 g/dL (14.0-18.0); Mean Corpuscular HGB Conc 31.4 g/dl (32-36); Mean Corpuscular Hemoglobin 25.5 pg (26-34); Mean Corpuscular Volume 81.2 fl (80-100); Mean Platelet Volume 10.1 fl (7.4-10.4); Platelet Count Result 297 k/mm3 (150-375); Red Blood Count 3.61 M/mm3 (4.6-6.20); Red Cell Distribution Width 14.5 % (11.5-14.5); White Blood Count 20.4 K/mm3 (4.5-10.0)
[2020-03-01 06:19] LABS: Anion Gap 7 mmol/L (8-16); Blood Urea Nitrogen 23 mg/dL (9-20); Calcium 8.5 mg/dL (8.4-10.2); Carbon Dioxide 26 mmol/L (22-30); Chloride 105 mmol/L (98-107); Estimated CRCL calculation 122 ml/min; Estimated Glomerular Filt Rate > 60; Glucose 104 mg/dL (75-110); Potassium 4.2 mmol/L (3.4-5.0); Sodium 138 mmol/L (137-145)
[2020-03-01] MEDS: HEPARIN SOD/D5W 100 UNITS/ML 25,000 UNITS/250 ML BAG 19 UNITS IV CONT ×2 (07:28→21:03)
[2020-03-01] MEDS: FLUoxetine HCL 20 MG CAPSULE 40 MG PO (09:40)
[2020-03-01] MEDS: ATORVASTATIN 40 MG TABLET PO (09:40)
[2020-03-01] MEDS: guaiFENesin 12 HR 600 MG TABCR PO ×2 (09:41→20:54)
[2020-03-01] MEDS: METOPROLOL SUCCINATE EXT REL 25 MG TABCR PO (09:41)
[2020-03-01] MEDS: PANTOPRAZOLE 40 MG TABLET PO ×2 (09:41→20:54)
[2020-03-01] MEDS: CLOPIDOGREL BISULFATE 75 MG TABLET PO (09:41)
[2020-03-01] MEDS: ASPIRIN 325 MG TABLET PO (09:41)
[2020-03-01] MEDS: PARoxetine 20 MG TABLET 40 MG PO (09:42)
[2020-03-01] MEDS: FERROUS SULFATE 324 MG TABLET PO (09:43)
[2020-03-01] MEDS: LOSARTAN POTASSIUM 100 MG TABLET PO (09:44)
--- NOTE | 2020-03-01 10:45 | PM.PNCARD ---
Progress Note: A&P Assessment and Plan (1) Dysphagia: Code(s): R13.10 - Dysphagia, unspecified Status: Acute (2) Gastroesophageal reflux disease: Code(s): K21.9 - Gastro-esophageal reflux disease without esophagitis Status: Acute Assessment and Plan: Pt states that has severe GERD. GI eval on outpt basis would be beneficial (3) Coronary artery disease: Code(s): I25.10 - Atherosclerotic heart disease of [place] coronary artery without angina pectoris Status: Acute Assessment and Plan: stable. Had cath [address] [facility] which was negative. Cont meds Await echo results. (4) Hyperlipidemia: Code(s): E78.5 - Hyperlipidemia, unspecified Status: Acute Assessment and Plan: cont statin (5) Hypertension: Code(s): I10 - Essential (primary) hypertension Status: Acute Assessment and Plan: well controlled cont meds (6) Pneumonia: Code(s): J18.9 - Pneumonia, unspecified organism Status: Acute Assessment and Plan: Management per PC (7) Sepsis: Code(s): A41.9 - Sepsis, unspecified organism Status: Acute (8) Elevated troponin: Code(s): R79.89 - Other specified abnormal findings of blood chemistry Status: Acute Assessment and Plan: No acute EKG changes Probably due to supply/demand mismatch. cont meds including clopidogrel which he used to take (9) Respiratory failure: Code(s): J96.90 - Respiratory failure, unspecified, unspecified whether with hypoxia or hypercapnia Status: Acute (10) Person under investigation for COVID-19: Code(s): Z20.828 - Contact with and (suspected) exposure to other viral communicable diseases Status: Acute Assessment and Plan: serology negative Subjective Date/time seen: 03/01/20 10:45 Patient reports occasional bilateral chest burning and pleuritic chest discomfort. He reports stable dyspnea. He reports occasional dizziness. Patient was seen and examined, chart reviewed, case discussed with nurse. Exam Const: General: comfortable and no acute distress Nutritional Appearance: well nourished Orientation/consciousness: patient oriented x3 HENMT: Head: normal to inspection and atraumatic Ears: hearing grossly normal bilaterally Face and sinus: normal facial exam Eyes: General: appearance normal, both eyes and all related structures Pupils: Equal, round and reactive pupils present EOM: EOMs intact bilaterally Neck: Neck: supple Chest: Chest palpation & inspection: normal inspection of the chest Resp: Effort & Inspection: normal respiratory effort and no respiratory distress Auscultation: clear to auscultation bilaterally Cardio: Jugular venous distension: no JVD Rate: regular rate Heart sounds: S1 normal heart sound present, S2 normal heart sound present and no murmurs Peripheral pulses: Peripheral pulses 2+ throughout GI: Inspection: non-distended Auscultation: normal bowel sounds Skin: General skin exam: normal color Neuro: General: patient oriented x3 Cranial nerves: Yes Equal, round and reactive pupils present Extrem: General: normal to inspection and no clubbing, cyanosis or edema Objective Data Vital Signs Vital Signs: Vital Signs - 24 hr 02/29/20 12:00 02/29/20 16:00 02/29/20 20:00 Temperature 36.4 C L 36.6 C 36.4 C L Pulse Rate 56 L 47 L 56 L Respiratory Rate 20 18 16 Blood Pressure 127/79 131/77 146/92 H Pulse Oximetry 98 100 97 02/29/20 20:24 02/29/20 22:59 03/01/20 00:40 Temperature Pulse Rate 67 66 Respiratory Rate 22 H 20 Blood Pressure Pulse Oximetry 94 100 100 03/01/20 01:35 03/01/20 04:00 03/01/20 04:31 Temperature 36.6 C 36.4 C Pulse Rate 68 44 L 52 L Respiratory Rate 16 14 Blood Pressure 140/80 142/88 H Pulse Oximetry 100 100 03/01/20 09:03 03/01/20 09:41 03/01/20 09:51 Temperature 36.2 C L Pulse Rate 56 L 56 L 52 L Respiratory Rate 13 14 Bl
--- NOTE | 2020-03-01 17:05 | PM.IMPN ---
Progress Note: A&P Assessment and Plan (1) Sepsis: Code(s): A41.9 - Sepsis, unspecified organism Status: Acute Assessment and Plan: Present on admission and supported by low-grade fever and elevated lactic acid level in the setting of pneumonia. Blood pressures have also been a little soft. Given history of congestive heart failure, he will receive cautious IV fluid rehydration. He received 1 liter normal saline emergency department with some improvement in his lactic acid level. At this time I will give him another liter over the course of several hours and repeat lactic acid level to ensure it has normalized. Blood cultures have been obtained and are pending. 03/01/20 17:05 Patient is a 54-year-old male with chronic respiratory failure on home oxygen 4 L nasal cannula, with history of COPD, coronary artery disease, congestive heart failure, recently was admitted [facility] 2 months ago with pneumonia, early today at home while on 4 L oxygen patient felt short of breath and unable to get enough oxygen EMS was called and patient was brought to emergency depart he was placed on BiPAP which did improve his symptoms, patient is diagnosed with pneumonia and being treated with Rocephin azithromycin, he tropes elevated and climbed patient is seen by lead radiation therapist suspect demand ischemia due to hypoxia unlikely acute coronary syndrome however patient is on heparin, for his COPD patient is being treated with dexamethasone and updraft, today patient is feeling much better not a short of breath, denies any chest pain palpitation fever or chills patient remains clinically stable repeat chest x-ray today shows persistent and worsening pneumonia most likely patient has healthcare associated pneumonia, will add Zosyn and vancomycin and stop Rocephin, will continue to monitor repeat chest x-rays in 2 days, patient will be seen by cardiologistfor further recommendation regarding his elevated tropes, will plan tomorrow (2) Person under investigation for COVID-19: Code(s): Z20.828 - Contact with and (suspected) exposure to other viral communicable diseases Status: Acute Assessment and Plan: SARS-CoV-2 by PCR swab pending at this time. He has been started on dexamethasone 6 milligrams q.day. In the interim, he will be placed in contact, droplet, and airborne isolation. (3) Acute and chronic respiratory failure with hypoxia: Code(s): J96.21 - Acute and chronic respiratory failure with hypoxia Status: Acute Assessment and Plan: Patient on 4 liters nasal cannula p.r.n. at home, requiring 5 liters to maintain oxygen saturations at this time. (4) Elevated troponin: Code(s): R79.89 - Other specified abnormal findings of blood chemistry Status: Acute Assessment and Plan: Initially the patient thought his chest tighness was due to shortness of breath, however his troponin has jumped. His Xarelto is currently on hold, and he has been started on a heparin drip per cardiology request. Records will be requested from [facility] given reports of fairly recent cardiac catheterization. (5) Pneumonia: Code(s): J18.9 - Pneumonia, unspecified organism Status: Acute Assessment and Plan: He has been started on azithromycin and ceftriaxone for possible bacterial pneumonia, pending SARS-CoV-2 testing. Obtain sputum culture and urine studies to send for Legionella and strep pneumoniae antigens. Swallow study in a.m. to rule out aspiration, given reports of dysphagia with liquids. (6) Chronic anemia: Code(s): D64.9 - Anemia, unspecified Status: Acute
[2020-03-01] MEDS: AMITRIPTYLINE HCL 25 MG TABLET 150 MG PO (20:53)
[2020-03-02] VITALS (12 sets, daily range): BP systolic 143–176; BP diastolic 77–99; PULSE 42–60; RESP 10–20; TEMP 36.2–37.5; O2SAT 95–100
[2020-03-02] MEDS: MORPHINE SULFATE 30 MG TABCR PO ×3 (05:30→21:10)
[2020-03-02] MEDS: GABAPENTIN 400 MG CAPSULE 800 MG PO ×3 (05:31→21:09)
[2020-03-02] MEDS: BENZONATATE 100 MG CAPSULE 200 MG PO ×3 (05:31→21:09)
[2020-03-02 06:32] LABS: Hematocrit 31.8 % (42.0-52.0); Hemoglobin 9.7 g/dL (14.0-18.0); Mean Corpuscular HGB Conc 30.5 g/dl (32-36); Mean Corpuscular Hemoglobin 24.6 pg (26-34); Mean Corpuscular Volume 80.5 fl (80-100); Mean Platelet Volume 9.8 fl (7.4-10.4); Platelet Count Result 321 k/mm3 (150-375); Red Blood Count 3.95 M/mm3 (4.6-6.20); Red Cell Distribution Width 14.2 % (11.5-14.5)
[2020-03-02 06:43] LABS: Partial Thromboplastin Time 93.2 SECONDS (22.3-36.8)
[2020-03-02 06:53] LABS: Anion Gap 7 mmol/L (8-16); Blood Urea Nitrogen 17 mg/dL (9-20); Calcium 8.7 mg/dL (8.4-10.2); Carbon Dioxide 28 mmol/L (22-30); Chloride 103 mmol/L (98-107); Estimated CRCL calculation 108 ml/min; Estimated Glomerular Filt Rate > 60; Glucose 81 mg/dL (75-110); Potassium 3.8 mmol/L (3.4-5.0); Sodium 138 mmol/L (137-145)
[2020-03-02] MEDS: FLUoxetine HCL 20 MG CAPSULE 40 MG PO (08:58)
[2020-03-02] MEDS: CLOPIDOGREL BISULFATE 75 MG TABLET PO (08:59)
[2020-03-02] MEDS: ATORVASTATIN 40 MG TABLET PO (08:59)
[2020-03-02] MEDS: ASPIRIN 325 MG TABLET PO (08:59)
[2020-03-02] MEDS: FERROUS SULFATE 324 MG TABLET PO (08:59)
[2020-03-02] MEDS: PARoxetine 20 MG TABLET 40 MG PO (09:00)
[2020-03-02] MEDS: METOPROLOL SUCCINATE EXT REL 25 MG TABCR PO (09:00)
[2020-03-02] MEDS: LOSARTAN POTASSIUM 100 MG TABLET PO (09:00)
[2020-03-02] MEDS: PANTOPRAZOLE 40 MG TABLET PO ×2 (09:00→21:09)
[2020-03-02] MEDS: guaiFENesin 12 HR 600 MG TABCR PO ×2 (09:00→21:09)
[2020-03-02 09:30] LABS: Troponin I 0.938 ng/mL (0.000-0.034)
--- NOTE | 2020-03-02 11:08 | PM.PNCARD ---
Progress Note: A&P Assessment and Plan (1) Coronary artery disease: Code(s): I25.10 - Atherosclerotic heart disease of [place] coronary artery without angina pectoris Status: Acute Assessment and Plan: 54 y/o with h/o CAD, CHF who presented with shortness of breath, acute resp failure required BiPAP support in the setting of pneumonia who is seen in cardiac consultation for NSTMI Chest pain free now. Trop peaked at 3.3. On IV heparin, day #3. November d/c IV heparin today May resume Xarelto as before (h/o PE) as not plan for repeat intervention this admission. His Non STMI is likely due to increased demand from underlying sepsis and resp failure Reviewed records from [facility], had cath in mid December as described below Continue ASA. November decrease to 81 mg daily. Also november d/c Plavix once started on Xarelto He was admitted with shortness of breath and chest pain, had positive stress test with fixed apical perfusion defect and anteriolateral mild ischemia, subsequently underwent LHC on January 04 that revealed: LM: no significant disease LAD: patent stent with diffuse mild disease LCx: Patent stent with diffuse mild disease RCA: Patent stents with diffuse mild disease. PDA has 50-60% lesion that with negative IFR. (2) Hypertension: Code(s): I10 - Essential (primary) hypertension Status: Acute Assessment and Plan: well controlled cont meds (3) Pneumonia: Code(s): J18.9 - Pneumonia, unspecified organism Status: Acute Assessment and Plan: Management per PC (4) Sepsis: Code(s): A41.9 - Sepsis, unspecified organism Status: Acute Assessment and Plan: Resolving. (5) NSTEMI (non-ST elevated myocardial infarction): Code(s): I21.4 - Non-ST elevation (NSTEMI) myocardial infarction Status: Acute Assessment and Plan: Likely type II [place]. Recent cath with patent stents and PDA lesion not significant by IFR. Resume Xarelto. Continue ASA. D/c Plavix (6) Respiratory failure: Code(s): J96.90 - Respiratory failure, unspecified, unspecified whether with hypoxia or hypercapnia Status: Acute (7) Person under investigation for COVID-19: Code(s): Z20.828 - Contact with and (suspected) exposure to other viral communicable diseases Status: Acute Assessment and Plan: serology negative Subjective Date/time seen: 03/02/20 11:08 No recurrence of chest pain. Breathing better Review of Systems Review of Systems: All systems reviewed & are unremarkable except as noted in HPI and below Constitutional: Constitutional: Reports as per HPI Eyes: Eyes: Reports as per HPI ENT: Reports system reviewed and no additional complaints, except as documented and Reports as per HPI Cardiovascular: Cardiovascular: Reports as per HPI Respiratory: Respiratory: Reports as per HPI Gastrointestinal: Gastrointestinal: Reports as per HPI Genitourinary: Genitourinary: Reports as per HPI Musculoskeletal: Musculoskeletal: Reports as per HPI Exam Const: General: comfortable and no acute distress Nutritional Appearance: well nourished Orientation/consciousness: patient oriented x3 HENMT: Head: normal to inspection and atraumatic Ears: hearing grossly normal bilaterally Face and sinus: normal facial exam Eyes: General: appearance normal, both eyes and all related structures Pupils: Equal, round and reactive pupils present EOM: EOMs intact bilaterally Neck: Neck: supple Chest: Chest palpation & inspection: normal inspection of the chest Resp: Effort & Inspection: normal respiratory effort and no respiratory distress Auscultation: clear to auscultation bilaterally Cardio: Jugular venous distension: no JVD Rate: regular rate Heart sounds: S1 normal heart sound present, S2 normal heart sound present and no murmurs Peripheral pulses: Peripheral pulses 2+ throughout GI: Inspection: non-distended Auscultation: normal bowel sounds Sk
--- NOTE | 2020-03-02 16:16 | PM.IMPN ---
Progress Note: A&P Assessment and Plan (1) Sepsis: Code(s): A41.9 - Sepsis, unspecified organism Status: Acute Assessment and Plan: (2) Person under investigation for COVID-19: Code(s): Z20.828 - Contact with and (suspected) exposure to other viral communicable diseases Status: Acute Assessment and Plan: COVID IS negative [place] [address]. Pt is on zithromax and zosyn and vancomycin. Pt is on BIPAP PRN, BC is negative so far, sputum shows yeast. (3) Acute and chronic respiratory failure with hypoxia: Code(s): J96.21 - Acute and chronic respiratory failure with hypoxia Status: Acute Assessment and Plan: Patient on 4 liters nasal cannula p.r.n. at home, requiring 4 liters to maintain oxygen saturations at this time.Pt found to have nstemi seen by cardiology heparin stopped as troponin is trending down. Pt still very SOB needig BIPAP. [place] [address]. Pt is on zithromax and zosyn and vancomycin. Pt is on BIPAP PRN, BC is negative so far, sputum shows yeast. (4) Elevated troponin: Code(s): R79.89 - Other specified abnormal findings of blood chemistry Status: Acute Assessment and Plan: off heparin now . (5) Pneumonia: Code(s): J18.9 - Pneumonia, unspecified organism Status: Acute Assessment and Plan: . (6) Chronic anemia: Code(s): D64.9 - Anemia, unspecified Status: Acute Assessment and Plan: On daily iron supplementation. (7) Hypertension: Code(s): I10 - Essential (primary) hypertension Status: Acute Assessment and Plan: Monitor BPs (8) Hyperlipidemia: Code(s): E78.5 - Hyperlipidemia, unspecified Status: Acute Assessment and Plan: Continue statin; LFTs within normal limits. Subjective Date/time seen: 03/02/20 16:16 Interval history: Rolo Rodriguez is a 54-year-old male with history of coronary artery disease, congestive heart failure, paroxysmal atrial fibrillation, COPD, chronic respiratory failure on p.r.n. home oxygen, and pulmonary embolism on Xarelto who presented to the emergency department earlier this morning via EMS from home for evaluation of shortness of breath. Pt found to have nstemi seen by cardiology heparin stopped as troponin is trending down. Pt still very SOB needig BIPAP. [place] [address]. Pt is on zithromax and zosyn and vancomycin. Pt is on BIPAP PRN, BC is negative so far, sputum shows yeast. Review of Systems Review of Systems: All systems reviewed & are unremarkable except as noted in HPI and below Cardiovascular: Cardiovascular: Reports chest pain and Reports dyspnea Exam Narrative: Exam Narrative: moderately obese Resp: Other: bilateral fair air entry with rhonchi and wheezing Cardio: Rate: regular rate Rhythm: regular rhythm GI: Auscultation: normal bowel sounds Skin: General skin exam: normal color Neuro: Speech: normal speech Sensory Exam: normal sensation Extrem: General: normal to inspection Psych: Affect: Anxious affect present Objective Data Vital Signs Vital Signs: Vital Signs - 24 hr 03/01/20 18:07 03/01/20 20:00 03/02/20 00:00 Temperature 36.2 C L 37.0 C 36.7 C Pulse Rate 51 L 51 L 49 L Respiratory Rate 16 18 18 Blood Pressure 146/83 H 157/80 H 176/84 H Pulse Oximetry 99 98 100 03/02/20 02:54 03/02/20 04:00 03/02/20 08:00 Temperature 36.6 C Pulse Rate 60 44 L 43 L Respiratory Rate 10 L 20
[2020-03-02] MEDS: RIVAROXABAN 20 MG TABLET PO (17:34)
--- NOTE | 2020-03-02 19:01 | PC.NURSE ---
Pharmacy has been called twice about missing night meds and meds for tomorrow.
[2020-03-02] MEDS: AMITRIPTYLINE HCL 25 MG TABLET 150 MG PO (21:09)
[2020-03-02 22:01] LABS: Vancomycin Trough 11.1 ug/mL (10.0-20.0)
--- NOTE | 2020-03-02 22:40 | PC.NURSE ---
Checked vancomycin trough levels before administering medication. Level was below 15 at 11.1 so medication was administered.
[2020-03-03] VITALS (14 sets, daily range): BP systolic 125–153; BP diastolic 71–85; PULSE 44–95; RESP 10–20; TEMP 36.1–37.2; O2SAT 96–100
[2020-03-03 00:32] LABS: Pneumococcal Antigen Urine Not Detected (Not Detected)
[2020-03-03] MEDS: MORPHINE SULFATE 30 MG TABCR PO ×3 (05:18→21:26)
[2020-03-03] MEDS: GABAPENTIN 400 MG CAPSULE 800 MG PO ×3 (05:18→21:26)
[2020-03-03] MEDS: BENZONATATE 100 MG CAPSULE 200 MG PO ×3 (05:19→21:25)
[2020-03-03 05:32] LABS: Hematocrit 33.7 % (42.0-52.0); Hemoglobin 10.2 g/dL (14.0-18.0); Mean Corpuscular HGB Conc 30.3 g/dl (32-36); Mean Corpuscular Hemoglobin 24.3 pg (26-34); Mean Corpuscular Volume 80.2 fl (80-100); Platelet Count Result 327 k/mm3 (150-375); Red Cell Distribution Width 14.2 % (11.5-14.5); White Blood Count 12.1 K/mm3 (4.5-10.0)
[2020-03-03 05:47] LABS: Anion Gap 6 mmol/L (8-16); Blood Urea Nitrogen 17 mg/dL (9-20); Calcium 8.6 mg/dL (8.4-10.2); Carbon Dioxide 28 mmol/L (22-30); Chloride 103 mmol/L (98-107); Estimated CRCL calculation 122 ml/min; Estimated Glomerular Filt Rate > 60; Glucose 81 mg/dL (75-110); Sodium 137 mmol/L (137-145)
[2020-03-03] MEDS: ASPIRIN 325 MG TABLET PO (09:16)
[2020-03-03] MEDS: FERROUS SULFATE 324 MG TABLET PO (09:16)
[2020-03-03] MEDS: FLUoxetine HCL 20 MG CAPSULE 40 MG PO (09:22)
[2020-03-03] MEDS: ATORVASTATIN 40 MG TABLET PO (09:22)
[2020-03-03] MEDS: guaiFENesin 12 HR 600 MG TABCR PO ×2 (09:22→21:26)
[2020-03-03] MEDS: METOPROLOL SUCCINATE EXT REL 25 MG TABCR PO (09:23)
[2020-03-03] MEDS: PARoxetine 20 MG TABLET 40 MG PO (09:23)
[2020-03-03] MEDS: LOSARTAN POTASSIUM 100 MG TABLET PO (09:23)
[2020-03-03] MEDS: PANTOPRAZOLE 40 MG TABLET PO ×2 (09:23→21:26)
--- NOTE | 2020-03-03 09:59 | PM.PNCARD ---
Progress Note: A&P Assessment and Plan (1) Coronary artery disease: Code(s): I25.10 - Atherosclerotic heart disease of [place] coronary artery without angina pectoris Status: Acute Assessment and Plan: 54 y/o with h/o CAD, CHF who presented with shortness of breath, acute resp failure required BiPAP support in the setting of pneumonia who is seen in cardiac consultation for NSTMI Chest pain free now. Trop peaked at 3.3. Received IV heparin X72 hours. Now switched to Xarelto as at home (h/o PE) NSTMI is likely due to increased demand from underlying sepsis and resp failure Had cath in mid December as described below Continue ASA. May decrease to 81 mg daily. Also may d/c Plavix as now on Xarelto [facility], He was admitted with shortness of breath and chest pain, had positive stress test with fixed apical perfusion defect and anteriolateral mild ischemia, subsequently underwent LHC on January 04 that revealed: LM: no significant disease LAD: patent stent with diffuse mild disease LCx: Patent stent with diffuse mild disease RCA: Patent stents with diffuse mild disease. PDA has 50-60% lesion that with negative IFR. (2) Hypertension: Code(s): I10 - Essential (primary) hypertension Status: Acute Assessment and Plan: Somewhat elevated. Will resume home Amlodipine. Will decrease metoprolol dose to 12.5 as his HR in the 40s-60s (3) Pneumonia: Code(s): J18.9 - Pneumonia, unspecified organism Status: Acute Assessment and Plan: Recurrent admissions with pneumonias. Work up per primary team (4) Sepsis: Code(s): A41.9 - Sepsis, unspecified organism Status: Acute Assessment and Plan: Resolving. (5) NSTEMI (non-ST elevated myocardial infarction): Code(s): I21.4 - Non-ST elevation (NSTEMI) myocardial infarction Status: Acute Assessment and Plan: Likely type II [place]. Recent cath with patent stents and PDA lesion not significant by IFR. Resume Xarelto. Continue ASA. (6) Respiratory failure: Code(s): J96.90 - Respiratory failure, unspecified, unspecified whether with hypoxia or hypercapnia Status: Acute Assessment and Plan: on home O2 at baseline (7) Person under investigation for COVID-19: Code(s): Z20.828 - Contact with and (suspected) exposure to other viral communicable diseases Status: Acute Assessment and Plan: serology negative Subjective Date/time seen: 03/03/20 09:50 Breathing better but feels extremely weak. Denies chest pain but reports he feels his heart is bounding strong Review of Systems Review of Systems: All systems reviewed & are unremarkable except as noted in HPI and below Constitutional: Constitutional: Reports as per HPI Eyes: Eyes: Reports as per HPI ENT: Reports system reviewed and no additional complaints, except as documented and Reports as per HPI Cardiovascular: Cardiovascular: Reports as per HPI Respiratory: Respiratory: Reports as per HPI Gastrointestinal: Gastrointestinal: Reports as per HPI Genitourinary: Genitourinary: Reports as per HPI Musculoskeletal: Musculoskeletal: Reports as per HPI Exam Const: General: comfortable and no acute distress Nutritional Appearance: well nourished Orientation/consciousness: patient oriented x3 HENMT: Head: normal to inspection and atraumatic Ears: hearing grossly normal bilaterally Face and sinus: normal facial exam Eyes: General: appearance normal, both eyes and all related structures Pupils: Equal, round and reactive pupils present EOM: EOMs intact bilaterally Neck: Neck: supple Chest: Chest palpation & inspection: normal inspection of the chest Resp: Effort & Inspection: normal respiratory effort and no respiratory distress Auscultation: clear to auscultation bilaterally Cardio: Jugular venous distension: no JVD Rate: regular rate Heart sounds: S1 normal heart sound present, S2
[2020-03-03] MEDS: amLODIPine BESYLATE 5 MG TABLET PO (11:09)
--- NOTE | 2020-03-03 14:12 | PM.IMPN ---
Progress Note: A&P Assessment and Plan (1) Sepsis: Code(s): A41.9 - Sepsis, unspecified organism Status: Acute Assessment and Plan: (2) Person under investigation for COVID-19: Code(s): Z20.828 - Contact with and (suspected) exposure to other viral communicable diseases Status: Acute Assessment and Plan: COVID IS [place] [address]. Pt is on zithromax and zosyn and vancomycin. Pt is on BIPAP PRN, BC is negative so far, sputum shows yeast. (3) Acute and chronic respiratory failure with hypoxia: Code(s): J96.21 - Acute and chronic respiratory failure with hypoxia Status: Acute Assessment and Plan: Patient on 4 liters nasal cannula p.r.n. at home, requiring 2 liters to maintain oxygen saturations at this time.Pt found to have nstemi seen by cardiology heparin stopped as troponin is trending down. Pt still very SOB needig BIPAP[place] [address]. Pt is on zithromax and zosyn and vancomycin. Pt is on BIPAP PRN, BC is negative so far, sputum shows yeast. (4) Elevated troponin: Code(s): R79.89 - Other specified abnormal findings of blood chemistry Status: Acute Assessment and Plan: Off heparin now (5) Pneumonia: Code(s): J18.9 - Pneumonia, unspecified organism Status: Acute Assessment and Plan: See above (6) Chronic anemia: Code(s): D64.9 - Anemia, unspecified Status: Acute Assessment and Plan: On daily iron supplementation. (7) Hypertension: Code(s): I10 - Essential (primary) hypertension Status: Acute Assessment and Plan: Monitor BPs (8) Hyperlipidemia: Code(s): E78.5 - Hyperlipidemia, unspecified Status: Acute Assessment and Plan: Continue statin; LFTs within normal limits. Subjective Date/time seen: 03/03/20 14:12 Interval history: Rolo Rodriguez is a 54-year-old male with history of coronary artery disease, congestive heart failure, paroxysmal atrial fibrillation, COPD, chronic respiratory failure on p.r.n. home oxygen, and pulmonary embolism on Xarelto who presented to the emergency department earlier this morning via EMS from home for evaluation of shortness of breath. Pt found to have nstemi seen by cardiology heparin stopped as troponin is trending down. Pt still very SOB needig BIPAP. Cxr shows possible pneumonia. WCC is improving. Pt is on zithromax and zosyn and vancomycin. Pt is on BIPAP PRN, BC is negative so far, sputum shows yeast. Review of Systems Review of Systems: All systems reviewed & are unremarkable except as noted in HPI and below Cardiovascular: Cardiovascular: Reports chest pain and Reports dyspnea Respiratory: Respiratory: Reports dyspnea Exam Narrative: Exam Narrative: Moderately obese, wet cough Resp: Other: Bilateral fair air entry with rhonchi and wheezing Cardio: Rate: regular rate Rhythm: regular rhythm GI: Auscultation: normal bowel sounds Skin: General skin exam: normal color Neuro: Speech: normal speech Sensory Exam: normal sensation Extrem: General: normal to inspection Psych: Affect: Anxious affect present Objective Data Vital Signs Vital Signs: Vital Signs - 24 hr 03/02/20 16:00 03/02/20 18:25 03/02/20 20:00 Temperature 37.5 C 37.0 C Pulse Rate 45 L 53 L 51 L Respiratory Rate 18 18 Blood Pressure 153/89 H 164/89 H Pulse Oximetry 100 100 03/02/20 22:22 03/03/20 00:00 03/03/20 01:48 Temperature 36.6 C Pulse Rate 50 L 95
[2020-03-03 16:09] LABS: Legionella pneumophila Ag Ur Not Detected (Not Detected)
[2020-03-03] MEDS: RIVAROXABAN 20 MG TABLET PO (17:23)
[2020-03-03] MEDS: AMITRIPTYLINE HCL 25 MG TABLET 150 MG PO (21:26)
[2020-03-04] VITALS (12 sets, daily range): BP systolic 114–145; BP diastolic 53–81; PULSE 43–68; RESP 9–20; TEMP 36.1–36.8; O2SAT 94–100
[2020-03-04] MEDS: MORPHINE SULFATE 30 MG TABCR PO ×3 (05:25→21:16)
[2020-03-04] MEDS: BENZONATATE 100 MG CAPSULE 200 MG PO ×3 (05:25→21:16)
[2020-03-04] MEDS: GABAPENTIN 400 MG CAPSULE 800 MG PO ×3 (05:25→21:16)
[2020-03-04 06:10] LABS: Hemoglobin 10.9 g/dL (14.0-18.0); Mean Corpuscular HGB Conc 31.1 g/dl (32-36); Mean Corpuscular Hemoglobin 24.8 pg (26-34); Mean Corpuscular Volume 79.7 fl (80-100); Mean Platelet Volume 9.7 fl (7.4-10.4); Platelet Count Result 344 k/mm3 (150-375); Red Blood Count 4.39 M/mm3 (4.6-6.20); Red Cell Distribution Width 14.1 % (11.5-14.5); White Blood Count 12.1 K/mm3 (4.5-10.0)
[2020-03-04 06:23] LABS: Anion Gap 6 mmol/L (8-16); Blood Urea Nitrogen 16 mg/dL (9-20); Calcium 8.4 mg/dL (8.4-10.2); Carbon Dioxide 27 mmol/L (22-30); Chloride 102 mmol/L (98-107); Estimated CRCL calculation 122 ml/min; Estimated Glomerular Filt Rate > 60; Glucose 101 mg/dL (75-110); Potassium 3.9 mmol/L (3.4-5.0); Sodium 135 mmol/L (137-145)
--- NOTE | 2020-03-04 09:07 | PM.PNCARD ---
Progress Note: A&P Assessment and Plan (1) Coronary artery disease: Code(s): I25.10 - Atherosclerotic heart disease of [place] coronary artery without angina pectoris Status: Acute Assessment and Plan: 54 y/o with h/o CAD, CHF who presented with shortness of breath, acute resp failure required BiPAP support in the setting of pneumonia who is seen in cardiac consultation for NSTMI Chest pain free now. Trop peaked at 3.3. Received IV heparin X72 hours. Now switched to Xarelto as at home (h/o PE) NSTMI is likely due to increased demand from underlying sepsis and resp failure Had cath in mid December as described below Continue ASA. May decrease to 81 mg daily. Also may d/c Plavix as now on Xarelto Records from [facility] reviewed, He was admitted with shortness of breath and chest pain, had positive stress test with fixed apical perfusion defect and anteriolateral mild ischemia, subsequently underwent LHC on January 04 that revealed: LM: no significant disease LAD: patent stent with diffuse mild disease LCx: Patent stent with diffuse mild disease RCA: Patent stents with diffuse mild disease. PDA has 50-60% lesion that with negative IFR. (2) Pneumonia: Code(s): J18.9 - Pneumonia, unspecified organism Status: Acute Assessment and Plan: Recurrent admissions with pneumonias. Still short of breath and requires BiPAP support. Consider pulmonary consult (3) Hypertension: Code(s): I10 - Essential (primary) hypertension Status: Acute Assessment and Plan: Will d/c metoprolol as HR in low 40s continue amlodipine Continue Losartan resume HCTZ (4) Sepsis: Code(s): A41.9 - Sepsis, unspecified organism Status: Acute Assessment and Plan: Resolving. (5) NSTEMI (non-ST elevated myocardial infarction): Code(s): I21.4 - Non-ST elevation (NSTEMI) myocardial infarction Status: Acute Assessment and Plan: Likely type II [place]. Recent cath with patent stents and PDA lesion not significant by IFR. Resume Xarelto. Continue ASA. (6) Respiratory failure: Code(s): J96.90 - Respiratory failure, unspecified, unspecified whether with hypoxia or hypercapnia Status: Acute Assessment and Plan: on home O2 at baseline. Now requires biPAP. Consider pulmonary consult (7) Person under investigation for COVID-19: Code(s): Z20.828 - Contact with and (suspected) exposure to other viral communicable diseases Status: Acute Assessment and Plan: serology negative Subjective Date/time seen: 03/04/20 09:07 Feels about the same, still short of breath with minimal exertion. HR in low 40s overnight. He states he feels his heart is bounding hard when he gets around Review of Systems Review of Systems: All systems reviewed & are unremarkable except as noted in HPI and below Constitutional: Constitutional: Reports as per HPI Eyes: Eyes: Reports as per HPI ENT: Reports system reviewed and no additional complaints, except as documented and Reports as per HPI Cardiovascular: Cardiovascular: Reports as per HPI Respiratory: Respiratory: Reports as per HPI Gastrointestinal: Gastrointestinal: Reports as per HPI Genitourinary: Genitourinary: Reports as per HPI Musculoskeletal: Musculoskeletal: Reports as per HPI Exam Const: General: comfortable and no acute distress Nutritional Appearance: well nourished Orientation/consciousness: patient oriented x3 HENMT: Head: normal to inspection and atraumatic Ears: hearing grossly normal bilaterally Face and sinus: normal facial exam Eyes: General: appearance normal, both eyes and all related structures Pupils: Equal, round and reactive pupils present EOM: EOMs intact bilaterally Neck: Neck: supple Chest: Chest palpation & inspection: normal inspection of the chest Resp: Effort & Inspection: normal respiratory effort and no respiratory distress Auscultation: clear to auscul
[2020-03-04] MEDS: ASPIRIN 325 MG TABLET PO (09:26)
[2020-03-04] MEDS: FERROUS SULFATE 324 MG TABLET PO (09:26)
[2020-03-04] MEDS: PARoxetine 20 MG TABLET 40 MG PO (09:27)
[2020-03-04] MEDS: FLUoxetine HCL 20 MG CAPSULE 40 MG PO (09:27)
[2020-03-04] MEDS: guaiFENesin 12 HR 600 MG TABCR PO ×2 (09:28→21:15)
[2020-03-04] MEDS: LOSARTAN POTASSIUM 100 MG TABLET PO (09:28)
[2020-03-04] MEDS: amLODIPine BESYLATE 5 MG TABLET PO (09:28)
[2020-03-04] MEDS: ATORVASTATIN 40 MG TABLET PO (09:28)
[2020-03-04] MEDS: hydroCHLOROthiazide 25 MG TABLET PO (10:17)
[2020-03-04] MEDS: PANTOPRAZOLE 40 MG TABLET PO ×2 (11:14→21:15)
--- NOTE | 2020-03-04 13:46 | PM.IMPN ---
Progress Note: A&P Assessment and Plan (1) Sepsis: Code(s): A41.9 - Sepsis, unspecified organism Status: Resolved Assessment and Plan: (2) Person under investigation for COVID-19: Code(s): Z20.828 - Contact with and (suspected) exposure to other viral communicable diseases Status: Acute Assessment and Plan: COVID IS [place] [address]. Pt is on zithromax and zosyn and vancomycin. Pt is on BIPAP PRN, BC is negative so far, sputum shows yeast. (3) Acute and chronic respiratory failure with hypoxia: Code(s): J96.21 - Acute and chronic respiratory failure with hypoxia Status: Acute Assessment and Plan: Patient on 2 liters nasal cannula p.r.n. at home, requiring 2 liters to maintain oxygen saturations at this time.Pt found to have nstemi seen by cardiology heparin stopped as troponin is trending down. Pt still very SOB needig BIPAP. [place] [address]. Pt is on zithromax and zosyn and vancomycin. Pt is on BIPAP PRN, BC is negative so far, sputum shows yeast. Pt denies smoking. (4) Elevated troponin: Code(s): R79.89 - Other specified abnormal findings of blood chemistry Status: Acute Assessment and Plan: Off heparin now (5) Pneumonia: Code(s): J18.9 - Pneumonia, unspecified organism Status: Acute Assessment and Plan: See above (6) Chronic anemia: Code(s): D64.9 - Anemia, unspecified Status: Acute Assessment and Plan: On daily iron supplementation. (7) Hypertension: Code(s): I10 - Essential (primary) hypertension Status: Acute Assessment and Plan: Monitor BPs (8) Hyperlipidemia: Code(s): E78.5 - Hyperlipidemia, unspecified Status: Acute Assessment and Plan: Continue statin; LFTs within normal limits. Subjective Date/time seen: 03/04/20 13:46 Interval history: Rool Rodriguez is a 54-year-old male with history of coronary artery disease, congestive heart failure, paroxysmal atrial fibrillation, COPD, chronic respiratory failure on p.r.n. home oxygen, and pulmonary embolism on Xarelto who presented to the emergency department earlier this morning via EMS from home for evaluation of shortness of breath. Pt found to have nstemi seen by cardiology heparin stopped as troponin is trending down. Pt still very SOB needig BIPAP. Cxr shows possible pneumonia. WCC is improving. Pt is on zithromax and zosyn and vancomycin. Pt is on BIPAP PRN, BC is negative so far, sputum shows yeast. Pt has had pneumonia before, I will consult pulmonology for recommendations Review of Systems Respiratory: Respiratory: Reports chest congestion, Reports cough, Reports dyspnea, Reports dyspnea on exertion and Reports wheezing Comments: Generalised weakness Exam Narrative: Exam Narrative: Moderately obese, wet cough Const: General: comfortable and no acute distress HENMT: General nose exam: Normal nares present Eyes: General: appearance normal, both eyes and all related structures Sclera: sclerae normal Neck: Neck: supple Resp: Other: Bilateral fair air entry with rhonchi and wheezing Cardio: Rate: regular rate Rhythm: regular rhythm GI: Auscultation: normal bowel sounds Skin: General skin exam: normal color Neuro: Speech: normal speech Sensory Exam: normal sensation Extrem: General: normal to inspection Psych: Affect: Anxious affect present Objective Data Vital Signs Vital Signs: Vital Signs - 24 hr 02/20
[2020-03-04] MEDS: RIVAROXABAN 20 MG TABLET PO (17:11)
[2020-03-04] MEDS: AMITRIPTYLINE HCL 25 MG TABLET 150 MG PO (21:15)
[2020-03-05] VITALS (8 sets, daily range): BP systolic 113–122; BP diastolic 57–81; PULSE 46–74; RESP 12–18; TEMP 36.1–36.6; O2SAT 95–100
[2020-03-05] MEDS: BENZONATATE 100 MG CAPSULE 200 MG PO ×3 (05:16→22:22)
[2020-03-05] MEDS: MORPHINE SULFATE 30 MG TABCR PO ×3 (05:16→22:22)
[2020-03-05] MEDS: GABAPENTIN 400 MG CAPSULE 800 MG PO ×3 (05:16→22:22)
[2020-03-05 06:19] LABS: Hematocrit 39.8 % (42.0-52.0); Mean Corpuscular HGB Conc 30.2 g/dl (32-36); Mean Corpuscular Hemoglobin 24.3 pg (26-34); Mean Corpuscular Volume 80.7 fl (80-100); Mean Platelet Volume 10.2 fl (7.4-10.4); Platelet Count Result 418 k/mm3 (150-375); Red Blood Count 4.93 M/mm3 (4.6-6.20); Red Cell Distribution Width 14.3 % (11.5-14.5); White Blood Count 12.2 K/mm3 (4.5-10.0)
[2020-03-05 06:29] LABS: Anion Gap 10 mmol/L (8-16); Blood Urea Nitrogen 17 mg/dL (9-20); Calcium 8.6 mg/dL (8.4-10.2); Carbon Dioxide 25 mmol/L (22-30); Chloride 101 mmol/L (98-107); Estimated CRCL calculation 120 ml/min; Estimated Glomerular Filt Rate > 60; Glucose 80 mg/dL (75-110); Potassium 4.3 mmol/L (3.4-5.0); Sodium 136 mmol/L (137-145)
[2020-03-05] MEDS: FLUoxetine HCL 20 MG CAPSULE 40 MG PO (08:32)
[2020-03-05] MEDS: guaiFENesin 12 HR 600 MG TABCR PO ×2 (08:32→22:22)
[2020-03-05] MEDS: hydroCHLOROthiazide 25 MG TABLET PO (08:32)
[2020-03-05] MEDS: PARoxetine 20 MG TABLET 40 MG PO (08:32)
[2020-03-05] MEDS: ASPIRIN 325 MG TABLET PO (08:32)
[2020-03-05] MEDS: FERROUS SULFATE 324 MG TABLET PO (08:33)
[2020-03-05] MEDS: PANTOPRAZOLE 40 MG TABLET PO ×2 (08:33→22:22)
[2020-03-05] MEDS: amLODIPine BESYLATE 5 MG TABLET PO (08:33)
[2020-03-05] MEDS: ATORVASTATIN 40 MG TABLET PO (08:33)
[2020-03-05] MEDS: LOSARTAN POTASSIUM 100 MG TABLET PO (08:34)
--- NOTE | 2020-03-05 08:35 | PM.PNCARD ---
Progress Note: A&P Assessment and Plan (1) Coronary artery disease: Code(s): I25.10 - Atherosclerotic heart disease of [place] coronary artery without angina pectoris Status: Acute Assessment and Plan: 54 y/o with h/o CAD, CHF who presented with shortness of breath, acute resp failure required BiPAP support in the setting of pneumonia who is seen in cardiac consultation for NSTMI Chest pain free now. Trop peaked at 3.3. Received IV heparin X72 hours. Now switched to Xarelto as at home (h/o PE) NSTMI is likely due to increased demand from underlying sepsis and resp failure Had cath in mid December as described below Continue ASA 81 daily and Xarelto He is stable for discharge from cardiac standpoint Records from [facility] reviewed, He was admitted with shortness of breath and chest pain, had positive stress test with fixed apical perfusion defect and anteriolateral mild ischemia, subsequently underwent LHC on January 04 that revealed: LM: no significant disease LAD: patent stent with diffuse mild disease LCx: Patent stent with diffuse mild disease RCA: Patent stents with diffuse mild disease. PDA has 50-60% lesion that with negative IFR. (2) Pneumonia: Code(s): J18.9 - Pneumonia, unspecified organism Status: Acute Assessment and Plan: Recurrent admissions with pneumonias. . Consider pulmonary consult (3) Hypertension: Code(s): I10 - Essential (primary) hypertension Status: Acute Assessment and Plan: Will d/c metoprolol as HR in low 40s continue amlodipine Continue Losartan resume HCTZ (4) Sepsis: Code(s): A41.9 - Sepsis, unspecified organism Status: Resolved Assessment and Plan: Resolving. (5) NSTEMI (non-ST elevated myocardial infarction): Code(s): I21.4 - Non-ST elevation (NSTEMI) myocardial infarction Status: Acute Assessment and Plan: Likely type II [place]. Recent cath with patent stents and PDA lesion not significant by IFR. Continue ASA. Also on Xarelto for h/o PE (6) Respiratory failure: Code(s): J96.90 - Respiratory failure, unspecified, unspecified whether with hypoxia or hypercapnia Status: Acute Assessment and Plan: on home O2 at baseline. (7) Person under investigation for COVID-19: Code(s): Z20.828 - Contact with and (suspected) exposure to other viral communicable diseases Status: Acute Assessment and Plan: serology negative Subjective Date/time seen: 03/05/20 08:35 Feels better. Off BiPAP last night. Review of Systems Review of Systems: All systems reviewed & are unremarkable except as noted in HPI and below Constitutional: Constitutional: Reports as per HPI Eyes: Eyes: Reports as per HPI ENT: Reports system reviewed and no additional complaints, except as documented and Reports as per HPI Cardiovascular: Cardiovascular: Reports as per HPI Respiratory: Respiratory: Reports as per HPI Gastrointestinal: Gastrointestinal: Reports as per HPI Genitourinary: Genitourinary: Reports as per HPI Musculoskeletal: Musculoskeletal: Reports as per HPI Exam Const: General: comfortable and no acute distress Nutritional Appearance: well nourished Orientation/consciousness: patient oriented x3 HENMT: Head: normal to inspection and atraumatic Ears: hearing grossly normal bilaterally Face and sinus: normal facial exam Eyes: General: appearance normal, both eyes and all related structures Pupils: Equal, round and reactive pupils present EOM: EOMs intact bilaterally Neck: Neck: supple Chest: Chest palpation & inspection: normal inspection of the chest Resp: Effort & Inspection: normal respiratory effort and no respiratory distress Auscultation: clear to auscultation bilaterally Cardio: Jugular venous distension: no JVD Rate: regular rate Heart sounds: S1 normal heart sound present, S2 normal heart sound present and no murmurs Peripheral pulses: Pe
--- NOTE | 2020-03-05 11:41 | PCNWS ---
Weekly nutritional screen. Patient is tolerating current diet with adequate intake. No weight loss reported. No nutritional needs at this time.
--- NOTE | 2020-03-05 12:31 | PM.IMPN ---
Progress Note: A&P Assessment and Plan (1) Sepsis: Code(s): A41.9 - Sepsis, unspecified organism Status: Resolved Assessment and Plan: (2) Person under investigation for COVID-19: Code(s): Z20.828 - Contact with and (suspected) exposure to other viral communicable diseases Status: Acute Assessment and Plan: COVID [place] [id number]. Pt is on zithromax and zosyn and vancomycin. Pt is on BIPAP PRN, BC is negative so far, sputum shows yeast. Stop zithromax (3) Acute and chronic respiratory failure with hypoxia: Code(s): J96.21 - Acute and chronic respiratory failure with hypoxia Status: Acute Assessment and Plan: Patient on 2 liters nasal cannula p.r.n. at home, requiring 2 liters to maintain oxygen saturations at this time.Pt found to have nstemi seen by cardiology heparin stopped as troponin is trending down. Pt still very SOB needig BIPAP. [place] [id number]. Pt is on zithromax and zosyn and vancomycin. Pt is on BIPAP PRN, BC is negative so far, sputum shows yeast. Pt denies smoking. cardiology have signed off, pulmology recommendation pending. could not start diflucan as it interacts with plavix (4) Elevated troponin: Code(s): R79.89 - Other specified abnormal findings of blood chemistry Status: Acute Assessment and Plan: Off heparin now (5) Pneumonia: Code(s): J18.9 - Pneumonia, unspecified organism Status: Acute Assessment and Plan: See above (6) Chronic anemia: Code(s): D64.9 - Anemia, unspecified Status: Acute Assessment and Plan: On daily iron supplementation. (7) Hypertension: Code(s): I10 - Essential (primary) hypertension Status: Acute Assessment and Plan: Monitor BPs (8) Hyperlipidemia: Code(s): E78.5 - Hyperlipidemia, unspecified Status: Acute Assessment and Plan: Continue statin; LFTs within normal limits. Subjective Date/time seen: 03/05/20 12:31 Interval history: Rolo Rodriguez is a 54-year-old male with history of coronary artery disease, congestive heart failure, paroxysmal atrial fibrillation, COPD, chronic respiratory failure on p.r.n. home oxygen, and pulmonary embolism on Xarelto who presented to the emergency department earlier this morning via EMS from home for evaluation of shortness of breath. Pt found to have nstemi seen by cardiology heparin stopped as troponin is trending down. Pt still very SOB needig BIPAP. Cxr shows possible pneumonia. WCC is improving. Pt is on zithromax and zosyn and vancomycin. Pt is on BIPAP PRN, BC is negative so far, sputum shows yeast. Pt has had pneumonia before, I will consult pulmonology for recommendations. plan to stop zithromax today as bc are negative. Review of Systems Review of Systems: ROS unobtainable: Yes other (weakness ) Respiratory: Respiratory: Reports chest congestion, Reports cough, Reports dyspnea and Reports wheezing Exam Narrative: Exam Narrative: Moderately obese, wet cough Const: General: comfortable and no acute distress HENMT: General nose exam: Normal nares present Eyes: General: appearance normal, both eyes and all related structures Sclera: sclerae normal Neck: Neck: supple Resp: Other: Bilateral fair air entry with rhonchi and wheezing mild Cardio: Rate: regular rate Rhythm: regular rhythm GI: Auscultation: normal bowel sounds Skin: General skin exam: normal color Neuro: Speech: normal speech
[2020-03-05] MEDS: RIVAROXABAN 20 MG TABLET PO (17:05)
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
[2020-03-05] MEDS: AMITRIPTYLINE HCL 25 MG TABLET 150 MG PO (22:22)
[2020-03-06] VITALS (12 sets, daily range): BP systolic 105–123; BP diastolic 62–73; PULSE 58–80; RESP 16–18; TEMP 36.3–36.8; O2SAT 95–100
[2020-03-06] MEDS: BENZONATATE 100 MG CAPSULE 200 MG PO ×3 (05:53→21:35)
[2020-03-06] MEDS: GABAPENTIN 400 MG CAPSULE 800 MG PO ×3 (05:54→21:35)
[2020-03-06] MEDS: MORPHINE SULFATE 30 MG TABCR PO ×3 (05:54→21:35)
[2020-03-06 06:07] LABS: Hematocrit 35.5 % (42.0-52.0); Hemoglobin 11.1 g/dL (14.0-18.0); Mean Corpuscular HGB Conc 31.3 g/dl (32-36); Mean Corpuscular Hemoglobin 24.9 pg (26-34); Mean Corpuscular Volume 79.8 fl (80-100); Mean Platelet Volume 9.7 fl (7.4-10.4); Platelet Count Result 429 k/mm3 (150-375); Red Blood Count 4.45 M/mm3 (4.6-6.20); Red Cell Distribution Width 14.5 % (11.5-14.5); White Blood Count 13.9 K/mm3 (4.5-10.0)
[2020-03-06 06:21] LABS: Anion Gap 7 mmol/L (8-16); Blood Urea Nitrogen 20 mg/dL (9-20); Calcium 8.9 mg/dL (8.4-10.2); Carbon Dioxide 29 mmol/L (22-30); Chloride 99 mmol/L (98-107); Estimated CRCL calculation 95 ml/min; Estimated Glomerular Filt Rate > 60; Glucose 109 mg/dL (75-110); Potassium 5.5 mmol/L (3.4-5.0); Sodium 135 mmol/L (137-145)
[2020-03-06] MEDS: FERROUS SULFATE 324 MG TABLET PO (08:54)
[2020-03-06] MEDS: guaiFENesin 12 HR 600 MG TABCR PO ×2 (08:54→21:34)
[2020-03-06] MEDS: FLUoxetine HCL 20 MG CAPSULE 40 MG PO (08:54)
[2020-03-06] MEDS: ATORVASTATIN 40 MG TABLET PO (08:54)
[2020-03-06] MEDS: PANTOPRAZOLE 40 MG TABLET PO ×2 (08:54→21:35)
[2020-03-06] MEDS: hydroCHLOROthiazide 25 MG TABLET PO (08:54)
[2020-03-06] MEDS: LOSARTAN POTASSIUM 100 MG TABLET PO (08:54)
[2020-03-06] MEDS: ASPIRIN 325 MG TABLET PO (08:54)
[2020-03-06] MEDS: amLODIPine BESYLATE 5 MG TABLET PO (08:54)
[2020-03-06] MEDS: PARoxetine 20 MG TABLET 40 MG PO (08:55)
--- NOTE | 2020-03-06 14:19 | PM.IMPN ---
Progress Note: A&P Assessment and Plan (1) Sepsis: Code(s): A41.9 - Sepsis, unspecified organism Status: Resolved Assessment and Plan: (2) Person under investigation for COVID-19: Code(s): Z20.828 - Contact with and (suspected) exposure to other viral communicable diseases Status: Acute Assessment and Plan: COVID IS [place] [id number]. Pt is on iv zosyn Day 5 (3) Acute and chronic respiratory failure with hypoxia: Code(s): J96.21 - Acute and chronic respiratory failure with hypoxia Status: Acute Assessment and Plan: wean off oxygen, pt is on iv zosyn only. Pt is on BIPAP PRN, BC is negative so far, sputum shows yeast. Pt denies smoking. cardiology have signed off, pulmology recommendation pending. could not start diflucan as it interacts with plavix (4) Elevated troponin: Code(s): R79.89 - Other specified abnormal findings of blood chemistry Status: Acute Assessment and Plan: Off heparin now, sp NSTEMI due to increased demand from underlying sepsis and resp failure (5) Pneumonia: Code(s): J18.9 - Pneumonia, unspecified organism Status: Acute Assessment and Plan: See above (6) Chronic anemia: Code(s): D64.9 - Anemia, unspecified Status: Acute Assessment and Plan: On daily iron supplementation. (7) Hypertension: Code(s): I10 - Essential (primary) hypertension Status: Acute Assessment and Plan: Monitor BPs (8) Hyperlipidemia: Code(s): E78.5 - Hyperlipidemia, unspecified Status: Acute Assessment and Plan: Continue statin; LFTs within normal limits. Subjective Date/time seen: 03/06/20 14:19 Interval history: Rolo Rodriguez is a 54-year-old male with history of coronary artery disease, congestive heart failure, paroxysmal atrial fibrillation, COPD, chronic respiratory failure on p.r.n. home oxygen, and pulmonary embolism on Xarelto who presented to the emergency department earlier this morning via EMS from home for evaluation of shortness of breath. Pt found to have nstemi seen by cardiology heparin stopped as troponin is trending down. Pt still very SOB needig BIPAP. Cxr shows possible pneumonia. WCC is improving. Pt is on BIPAP PRN, BC is negative so far, sputum shows yeast. Pt has had pneumonia before, I will consult pulmonology for recommendations. Pt is on iv zosyn only. Pt is improving Review of Systems Review of Systems: All systems reviewed & are unremarkable except as noted in HPI and below ROS unobtainable: Yes other (weakness ) Cardiovascular: Cardiovascular: Reports chest pain, Reports dyspnea and Reports dyspnea on exertion Respiratory: Respiratory: Reports chest congestion, Reports cough, Reports dyspnea, Reports dyspnea on exertion and Reports wheezing Exam Narrative: Exam Narrative: Moderately obese Const: General: comfortable and no acute distress HENMT: General nose exam: Normal nares present Eyes: General: appearance normal, both eyes and all related structures Sclera: sclerae normal Neck: Neck: supple Resp: Other: Bilateral decreased BS Cardio: Rate: regular rate Rhythm: regular rhythm GI: Auscultation: normal bowel sounds Skin: General skin exam: normal color Neuro: Speech: normal speech Sensory Exam: normal sensation Extrem: General: normal to inspection Psych: Affect: Anxious affect present Objective Data Vital Signs Vital Signs: Vital Signs - 24 hr 03/05/20 16
--- NOTE | 2020-03-06 14:31 | PM.PNCARD ---
Progress Note: A&P Assessment and Plan (1) Coronary artery disease: Code(s): I25.10 - Atherosclerotic heart disease of [place] coronary artery without angina pectoris Status: Acute Assessment and Plan: 54 y/o with h/o CAD, CHF who presented with shortness of breath, acute resp failure required BiPAP support in the setting of pneumonia who is seen in cardiac consultation for NSTMI Chest pain free now. Trop peaked at 3.3. Received IV heparin X72 hours. Now switched to Xarelto as at home (h/o PE) NSTMI is likely due to increased demand from underlying sepsis and resp failure Had cath in mid December as described below Continue ASA 81 daily and Xarelto Holding losartan given his hyperkalemia. Monitor and correct hyperkalemia; he is otherwise stable from a cardiac perspective for discharge with follow-up in the Cardiology Clinic in 1 week. Records from [facility] reviewed, He was admitted with shortness of breath and chest pain, had positive stress test with fixed apical perfusion defect and anteriolateral mild ischemia, subsequently underwent LHC on January 04 that revealed: LM: no significant disease LAD: patent stent with diffuse mild disease LCx: Patent stent with diffuse mild disease RCA: Patent stents with diffuse mild disease. PDA has 50-60% lesion that with negative IFR. (2) Pneumonia: Code(s): J18.9 - Pneumonia, unspecified organism Status: Acute Assessment and Plan: Recurrent admissions with pneumonias. . Consider pulmonary consult (3) Hypertension: Code(s): I10 - Essential (primary) hypertension Status: Acute Assessment and Plan: Will d/c metoprolol as HR in low 40s continue amlodipine consider resumption of losartan pending correction of hyperkalemia resume HCTZ (4) Sepsis: Code(s): A41.9 - Sepsis, unspecified organism Status: Resolved Assessment and Plan: Resolving. (5) NSTEMI (non-ST elevated myocardial infarction): Code(s): I21.4 - Non-ST elevation (NSTEMI) myocardial infarction Status: Acute Assessment and Plan: Likely type II [place]. Recent cath with patent stents and PDA lesion not significant by IFR. Continue ASA. Also on Xarelto for h/o PE (6) Respiratory failure: Code(s): J96.90 - Respiratory failure, unspecified, unspecified whether with hypoxia or hypercapnia Status: Acute Assessment and Plan: on home O2 at baseline. (7) Person under investigation for COVID-19: Code(s): Z20.828 - Contact with and (suspected) exposure to other viral communicable diseases Status: Acute Assessment and Plan: serology negative Subjective Date/time seen: 03/06/20 14:31 Patient reports slowly improving dyspnea. He reports occasional bilateral chest burning worse in the right lateral lower chest with deep inspiration. He denies dizziness. Patient was seen and examined, chart reviewed, case discussed with nurse. Exam Const: General: comfortable and no acute distress Nutritional Appearance: well nourished Orientation/consciousness: patient oriented x3 HENMT: Head: normal to inspection and atraumatic Ears: hearing grossly normal bilaterally Face and sinus: normal facial exam Eyes: General: appearance normal, both eyes and all related structures Pupils: Equal, round and reactive pupils present EOM: EOMs intact bilaterally Neck: Neck: supple Chest: Chest palpation & inspection: normal inspection of the chest Resp: Effort & Inspection: normal respiratory effort and no respiratory distress Auscultation: clear to auscultation bilaterally Cardio: Jugular venous distension: no JVD Rate: regular rate Heart sounds: S1 normal heart sound present, S2 normal heart sound present and no murmurs Peripheral pulses: Peripheral pulses 2+ throughout GI: Inspection: non-distended Auscultation: normal bowel sounds Skin: General skin exam: normal color Neuro: General: patient oriente
[2020-03-06] MEDS: RIVAROXABAN 20 MG TABLET PO (17:02)
[2020-03-06] MEDS: AMITRIPTYLINE HCL 25 MG TABLET 150 MG PO (21:35)
[2020-03-07] VITALS (9 sets, daily range): BP systolic 126–143; BP diastolic 73–85; PULSE 56–91; RESP 16–18; TEMP 36.2–36.9; O2SAT 96–100
[2020-03-07] MEDS: MORPHINE SULFATE 30 MG TABCR PO ×3 (05:22→21:17)
[2020-03-07] MEDS: BENZONATATE 100 MG CAPSULE 200 MG PO ×3 (05:22→21:20)
[2020-03-07] MEDS: GABAPENTIN 400 MG CAPSULE 800 MG PO ×3 (05:22→21:18)
[2020-03-07 06:04] LABS: Hematocrit 36.1 % (42.0-52.0); Hemoglobin 11.4 g/dL (14.0-18.0); Mean Corpuscular HGB Conc 31.6 g/dl (32-36); Mean Corpuscular Hemoglobin 24.8 pg (26-34); Mean Corpuscular Volume 78.5 fl (80-100); Mean Platelet Volume 9.6 fl (7.4-10.4); Platelet Count Result 439 k/mm3 (150-375); Red Cell Distribution Width 14.6 % (11.5-14.5)
[2020-03-07 06:18] LABS: Anion Gap 11 mmol/L (8-16); Blood Urea Nitrogen 25 mg/dL (9-20); Calcium 8.9 mg/dL (8.4-10.2); Carbon Dioxide 23 mmol/L (22-30); Chloride 99 mmol/L (98-107); Estimated CRCL calculation 78 ml/min; Estimated Glomerular Filt Rate > 60; Glucose 96 mg/dL (75-110); Magnesium 2.3 mg/dL (1.6-2.3); Potassium 4.2 mmol/L (3.4-5.0); Sodium 133 mmol/L (137-145)
[2020-03-07] MEDS: FERROUS SULFATE 324 MG TABLET PO (08:08)
[2020-03-07] MEDS: amLODIPine BESYLATE 5 MG TABLET PO (08:09)
[2020-03-07] MEDS: ATORVASTATIN 40 MG TABLET PO (08:09)
[2020-03-07] MEDS: guaiFENesin 12 HR 600 MG TABCR PO ×2 (08:09→21:20)
[2020-03-07] MEDS: hydroCHLOROthiazide 25 MG TABLET PO (08:09)
[2020-03-07] MEDS: FLUoxetine HCL 20 MG CAPSULE 40 MG PO (08:09)
[2020-03-07] MEDS: FUROSEMIDE 20 MG TABLET PO (08:09)
[2020-03-07] MEDS: PANTOPRAZOLE 40 MG TABLET PO ×2 (08:09→21:21)
[2020-03-07] MEDS: ASPIRIN 81 MG CHEWABLE TABLET PO (08:09)
[2020-03-07] MEDS: PARoxetine 20 MG TABLET 40 MG PO (08:09)
--- NOTE | 2020-03-07 14:03 | PM.IMPN ---
Progress Note: A&P Assessment and Plan (1) Sepsis: Code(s): A41.9 - Sepsis, unspecified organism Status: Resolved Assessment and Plan: (2) Person under investigation for COVID-19: Code(s): Z20.828 - Contact with and (suspected) exposure to other viral communicable diseases Status: Ruled-out Assessment and Plan: COVID [place] [id number]. Pt is on iv zosyn Day 6. rpt cxr suhail am From pulmology pt has a history of trachebronchomalacia and history of chronic airway disease withnonobstructive alveolar hypoventilation Pt has home oxygen concentrator at home. Discharge pt when awaiting AFB and IgG and Alpha 1 labs. (3) Acute and chronic respiratory failure with hypoxia: Code(s): J96.21 - Acute and chronic respiratory failure with hypoxia Status: Acute Assessment and Plan: Pt is on iv zosyn only day 6. Pt is on BIPAP PRN, BC is negative so far, sputum shows yeast. Pt denies smoking. cardiology have signed off, pulmology recommendation pending. could not start diflucan as it interacts with plavix . Pt has home oxygen concentrator. PT will need home oxygen assessment prior to discharge and sleep study on discharge. (4) Elevated troponin: Code(s): R79.89 - Other specified abnormal findings of blood chemistry Status: Acute Assessment and Plan: Off heparin now, sp NSTEMI due to increased demand from underlying sepsis and resp failure (5) Pneumonia: Code(s): J18.9 - Pneumonia, unspecified organism Status: Acute Assessment and Plan: See above (6) Chronic anemia: Code(s): D64.9 - Anemia, unspecified Status: Acute Assessment and Plan: On daily iron supplementation. (7) Hypertension: Code(s): I10 - Essential (primary) hypertension Status: Acute Assessment and Plan: Monitor BPs (8) Hyperlipidemia: Code(s): E78.5 - Hyperlipidemia, unspecified Status: Acute Assessment and Plan: Continue statin; LFTs within normal limits. Subjective Date/time seen: 03/07/20 14:03 Interval history: Rolo Rodriguez is a 54-year-old male with history of coronary artery disease, congestive heart failure, paroxysmal atrial fibrillation, COPD, chronic respiratory failure on p.r.n. home oxygen, and pulmonary embolism on Xarelto who presented to the emergency department earlier this morning via EMS from home for evaluation of shortness of breath. Pt found to have nstemi seen by cardiology heparin stopped as troponin is trending down. Pt still very SOB needing BIPAP then. Cxr shows possible pneumonia. WCC is improving.Off BIPAP, BC is negative so far, sputum shows yeast. Pt has had pneumonia before, I will consult pulmonology for recommendations. Pt is on iv zosyn only. Pt is improving, breathing is much better. awaiting AFB and IgG and Alpha 1 labs. seen by pulmology thanks for insight. [facility] discharge in 1-2 days time. Review of Systems Review of Systems: All systems reviewed & are unremarkable except as noted in HPI and below Respiratory: Respiratory: Reports chest congestion, Denies cough and Reports dyspnea Exam Narrative: Exam Narrative: Moderately obese Const: General: comfortable and no acute distress HENMT: General nose exam: Normal nares present Eyes: General: appearance normal, both eyes and all related structures Sclera: sclerae normal Neck: Neck: supple Resp: Other: Bilateral decreased BS. no rhonchi or wheeze Cardio: Ra
--- NOTE | 2020-03-07 15:34 | PM.PNCARD ---
Progress Note: A&P Assessment and Plan (1) Coronary artery disease: Code(s): I25.10 - Atherosclerotic heart disease of [place] coronary artery without angina pectoris Status: Acute Assessment and Plan: 54 y/o with h/o CAD, CHF who presented with shortness of breath, acute resp failure required BiPAP support in the setting of pneumonia who is seen in cardiac consultation for NSTMI Chest pain free now. Trop peaked at 3.3. Received IV heparin X72 hours. Now switched to Xarelto as at home (h/o PE) NSTMI is likely due to increased demand from underlying sepsis and resp failure Had cath in mid December as described below Continue ASA 81 daily and Xarelto He is stable from a cardiac perspective for discharge with follow-up in the Cardiology Clinic in 1 week. Records from [facility] reviewed, He was admitted with shortness of breath and chest pain, had positive stress test with fixed apical perfusion defect and anteriolateral mild ischemia, subsequently underwent LHC on January 04 that revealed: LM: no significant disease LAD: patent stent with diffuse mild disease LCx: Patent stent with diffuse mild disease RCA: Patent stents with diffuse mild disease. PDA has 50-60% lesion that with negative IFR. (2) Pneumonia: Code(s): J18.9 - Pneumonia, unspecified organism Status: Acute Assessment and Plan: Recurrent admissions with pneumonias. He had pulmonary consult with plans for sleep study. (3) Hypertension: Code(s): I10 - Essential (primary) hypertension Status: Acute Assessment and Plan: Had d/c metoprolol as HR was in low 40s continue amlodipine and losartan. resumed HCTZ (4) Sepsis: Code(s): A41.9 - Sepsis, unspecified organism Status: Resolved Assessment and Plan: Resolving. (5) NSTEMI (non-ST elevated myocardial infarction): Code(s): I21.4 - Non-ST elevation (NSTEMI) myocardial infarction Status: Acute Assessment and Plan: Likely type II [place]. Recent cath with patent stents and PDA lesion not significant by IFR. Continue ASA. Also on Xarelto for h/o PE (6) Respiratory failure: Code(s): J96.90 - Respiratory failure, unspecified, unspecified whether with hypoxia or hypercapnia Status: Acute Assessment and Plan: on home O2 at baseline. (7) Person under investigation for COVID-19: Code(s): Z20.828 - Contact with and (suspected) exposure to other viral communicable diseases Status: Ruled-out Assessment and Plan: serology negative Subjective Date/time seen: 03/07/20 15:34 Patient reports slowly improving dyspnea. He reports occasional bilateral chest burning worse in the right lateral lower chest with deep inspiration. He denies dizziness. Patient was seen and examined, chart reviewed, case discussed with nurse. Exam Const: General: comfortable and no acute distress Nutritional Appearance: well nourished Orientation/consciousness: patient oriented x3 HENMT: Head: normal to inspection and atraumatic Ears: hearing grossly normal bilaterally Face and sinus: normal facial exam Eyes: General: appearance normal, both eyes and all related structures Pupils: Equal, round and reactive pupils present EOM: EOMs intact bilaterally Neck: Neck: supple Chest: Chest palpation & inspection: normal inspection of the chest Resp: Effort & Inspection: normal respiratory effort and no respiratory distress Auscultation: clear to auscultation bilaterally Cardio: Jugular venous distension: no JVD Rate: regular rate Heart sounds: S1 normal heart sound present, S2 normal heart sound present and no murmurs Peripheral pulses: Peripheral pulses 2+ throughout GI: Inspection: non-distended Auscultation: normal bowel sounds Skin: General skin exam: normal color Neuro: General: patient oriented x3 Cranial nerves: Yes Equal, round and reactive pupils present Extrem: General: normal to inspection
[2020-03-07] MEDS: methylPREDNISolone (MEDROL) DOSEPACK 4 MG TABLETS PO ×4 (15:38→21:21)
[2020-03-07] MEDS: RIVAROXABAN 20 MG TABLET PO (17:11)
[2020-03-07] MEDS: AMITRIPTYLINE HCL 25 MG TABLET 150 MG PO (21:18)
[2020-03-08 01:14] VITALS: RESP 18; O2SAT 95
[2020-03-08 04:10] VITALS: PULSE 68; RESP 12; O2SAT 94
[2020-03-08] MEDS: MORPHINE SULFATE 30 MG TABCR PO ×3 (05:26→21:57)
[2020-03-08] MEDS: GABAPENTIN 400 MG CAPSULE 800 MG PO ×3 (05:26→21:57)
[2020-03-08] MEDS: BENZONATATE 100 MG CAPSULE 200 MG PO ×3 (05:26→21:57)
[2020-03-08] MEDS: methylPREDNISolone (MEDROL) DOSEPACK 4 MG TABLETS PO ×4 (05:30→21:57)
[2020-03-08 06:10] LABS: Hematocrit 40.3 % (42.0-52.0); Hemoglobin 12.6 g/dL (14.0-18.0); Mean Corpuscular HGB Conc 31.3 g/dl (32-36); Mean Corpuscular Hemoglobin 25.1 pg (26-34); Mean Corpuscular Volume 80.3 fl (80-100); Platelet Count Result 501 k/mm3 (150-375); Red Blood Count 5.02 M/mm3 (4.6-6.20); Red Cell Distribution Width 14.7 % (11.5-14.5); White Blood Count 18.4 K/mm3 (4.5-10.0)
[2020-03-08 06:29] LABS: Anion Gap 7 mmol/L (8-16); Blood Urea Nitrogen 26 mg/dL (9-20); Calcium 9.2 mg/dL (8.4-10.2); Carbon Dioxide 30 mmol/L (22-30); Chloride 97 mmol/L (98-107); Estimated CRCL calculation 79 ml/min; Estimated Glomerular Filt Rate > 60; Glucose 120 mg/dL (75-110); Magnesium 2.5 mg/dL (1.6-2.3); Potassium 4.8 mmol/L (3.4-5.0); Sodium 134 mmol/L (137-145)
[2020-03-08] MEDS: ATORVASTATIN 40 MG TABLET PO (08:57)
[2020-03-08] MEDS: ASPIRIN 81 MG CHEWABLE TABLET PO (08:57)
[2020-03-08] MEDS: FERROUS SULFATE 324 MG TABLET PO (08:57)
[2020-03-08] MEDS: FLUoxetine HCL 20 MG CAPSULE 40 MG PO (08:57)
[2020-03-08] MEDS: hydroCHLOROthiazide 25 MG TABLET PO (08:58)
[2020-03-08] MEDS: guaiFENesin 12 HR 600 MG TABCR PO ×2 (08:58→21:56)
[2020-03-08] MEDS: amLODIPine BESYLATE 5 MG TABLET PO (08:58)
[2020-03-08] MEDS: FUROSEMIDE 20 MG TABLET PO (08:58)
[2020-03-08] MEDS: PARoxetine 20 MG TABLET 40 MG PO (08:58)
[2020-03-08] MEDS: PANTOPRAZOLE 40 MG TABLET PO ×2 (08:59→21:57)
[2020-03-08] MEDS: LOSARTAN POTASSIUM 100 MG TABLET PO (09:04)
[2020-03-08 09:17] VITALS: O2SAT 97
[2020-03-08 09:34] VITALS: BP 134/90; PULSE 68; RESP 18; TEMP 36.7; O2SAT 100
--- NOTE | 2020-03-08 13:38 | PM.PNCARD ---
Progress Note: A&P Assessment and Plan (1) Coronary artery disease: Code(s): I25.10 - Atherosclerotic heart disease of [place] coronary artery without angina pectoris Status: Acute Assessment and Plan: 54 y/o with h/o CAD, CHF who presented with shortness of breath, acute resp failure required BiPAP support in the setting of pneumonia who is seen in cardiac consultation for NSTMI he had few episode of recurrent chest pain due to recurring chest pain and history of recent non ST elevation myocardial infarction will proceed with cardiac catheterization. Will hold his Xarelto today and tomorrow and proceed with catheterization tomorrow (2) Pneumonia: Code(s): J18.9 - Pneumonia, unspecified organism Status: Acute Assessment and Plan: Recurrent admissions with pneumonias. He had pulmonary consult with plans for sleep study. (3) Hypertension: Code(s): I10 - Essential (primary) hypertension Status: Acute Assessment and Plan: Had d/c metoprolol as HR was in low 40s continue amlodipine and losartan. resumed HCTZ (4) Sepsis: Code(s): A41.9 - Sepsis, unspecified organism Status: Resolved Assessment and Plan: Resolving. (5) NSTEMI (non-ST elevated myocardial infarction): Code(s): I21.4 - Non-ST elevation (NSTEMI) myocardial infarction Status: Acute Assessment and Plan: Likely type II [place]. Recent cath with patent stents and PDA lesion not significant by IFR. Continue ASA. Also on Xarelto for h/o PE (6) Respiratory failure: Code(s): J96.90 - Respiratory failure, unspecified, unspecified whether with hypoxia or hypercapnia Status: Acute Assessment and Plan: on home O2 at baseline. (7) Person under investigation for COVID-19: Code(s): Z20.828 - Contact with and (suspected) exposure to other viral communicable diseases Status: Ruled-out Assessment and Plan: serology negative Subjective Date/time seen: 03/08/20 13:38 feels better today, still with cough, and now he has occasional chest pain. He has history of known coronary disease with previous stents, but he moved here and he was to follow up here in has his cardiac care here. Occasional tightness in the chest, and more shortness of breath Exam Const: General: comfortable and no acute distress Nutritional Appearance: well nourished Orientation/consciousness: patient oriented x3 HENMT: Head: normal to inspection and atraumatic Ears: hearing grossly normal bilaterally Face and sinus: normal facial exam Eyes: General: appearance normal, both eyes and all related structures Pupils: Equal, round and reactive pupils present EOM: EOMs intact bilaterally Neck: Neck: supple Chest: Chest palpation & inspection: normal inspection of the chest Resp: Effort & Inspection: normal respiratory effort and no respiratory distress Auscultation: clear to auscultation bilaterally Cardio: Jugular venous distension: no JVD Rate: regular rate Heart sounds: S1 normal heart sound present, S2 normal heart sound present and no murmurs Peripheral pulses: Peripheral pulses 2+ throughout GI: Inspection: non-distended Auscultation: normal bowel sounds Skin: General skin exam: normal color Neuro: General: patient oriented x3 Cranial nerves: Yes Equal, round and reactive pupils present Extrem: General: normal to inspection and no clubbing, cyanosis or edema Objective Data Vital Signs Vital Signs: Vital Signs - 24 hr 03/07/20 16:00 03/07/20 19:38 03/07/20 21:15 Temperature 36.9 C Pulse Rate 91 74 Respiratory Rate 18 Blood Pressure 143/76 H 134/85 Pulse Oximetry 100 97 03/07/20 23:27 03/08/20 01:14 03/08/20 04:10 Temperature 36.2 C L Pulse Rate 75 68 Respiratory Rate 16 18 12 Blood Pressure 133/83 Pulse Oximetry 100 95 94 03/08/20 09:17 03/08/20 09:34 Temperature 36.7 C Pulse Rate 68 Respiratory Rate 18 Blood P
[2020-03-08] MEDS: SODIUM CHLORIDE 0.9% IV 500 ML 100 ML IV CONT ×2 (13:43→19:56)
--- NOTE | 2020-03-08 15:57 | PM.IMPN ---
Progress Note: A&P Assessment and Plan (1) Sepsis: Code(s): A41.9 - Sepsis, unspecified organism Status: Resolved Assessment and Plan: (2) Person under investigation for COVID-19: Code(s): Z20.828 - Contact with and (suspected) exposure to other viral communicable diseases Status: Ruled-out Assessment and Plan: COVID [place] [id number]. Pt is on iv zosyn Day 6. rpt cxr suhail am From pulmology pt has a history of trachebronchomalacia and history of chronic airway disease withnonobstructive alveolar hypoventilation Pt has home oxygen concentrator at home. Discharge pt when awaiting AFB and IgG and Alpha 1 labs. ___Rolo Rodriguez is a 54-year-old male with history of coronary artery disease, congestive heart failure, paroxysmal atrial fibrillation, COPD, chronic respiratory failure on p.r.n. home oxygen, and pulmonary embolism on Xarelto who presented to the emergency department earlier this morning via EMS from home for evaluation of shortness of breath. Pt found to have nstemi seen by cardiology heparin stopped as troponin is trending down. Pt still very SOB needing BIPAP then. Cxr shows possible pneumonia. WCC is improving.Off BIPAP, BC is negative so far, sputum shows yeast. Pt has had pneumonia before, patient was see electrocardiograph operator and workup in progress, today patient stats he is feeling bettter, patient with elevated tropes and c/o CP, patient is seen by his cardologist is scheduled for cardiac cath tomorrow. will follow up, Pt is on iv zosyn only will continue . Pt is improving, breathing is much better. awaiting AFB and IgG and Alpha 1 labs. seen by pulmology thanks for insight. [facility] discharge in 1-2 days time. (3) Acute and chronic respiratory failure with hypoxia: Code(s): J96.21 - Acute and chronic respiratory failure with hypoxia Status: Acute Assessment and Plan: Pt is on iv zosyn only day 6. Pt is on BIPAP PRN, BC is negative so far, sputum shows yeast. Pt denies smoking. cardiology have signed off, pulmology recommendation pending. could not start diflucan as it interacts with plavix . Pt has home oxygen concentrator. PT will need home oxygen assessment prior to discharge and sleep study on discharge. (4) Elevated troponin: Code(s): R79.89 - Other specified abnormal findings of blood chemistry Status: Acute Assessment and Plan: Off heparin now, sp NSTEMI due to increased demand from underlying sepsis and resp failure (5) Pneumonia: Code(s): J18.9 - Pneumonia, unspecified organism Status: Acute Assessment and Plan: See above (6) Chronic anemia: Code(s): D64.9 - Anemia, unspecified Status: Acute Assessment and Plan: On daily iron supplementation. (7) Hypertension: Code(s): I10 - Essential (primary) hypertension Status: Acute Assessment and Plan: Monitor BPs (8) Hyperlipidemia: Code(s): E78.5 - Hyperlipidemia, unspecified Status: Acute Assessment and Plan: Continue statin; LFTs within normal limits. Subjective Date/time seen: 03/08/20 15:57 Interval history: Rolo Rodriguez is a 54-year-old male with history of coronary artery disease, congestive heart failure, paroxysmal atrial fibrillation, COPD, chronic respiratory failure on p.r.n. home oxygen, and pulmonary embolism on Xarelto who presented to the emergency department earlier this morning via EMS from home for evaluation of shortness of breath. Pt found to have
[2020-03-08 16:00] VITALS: BP 125/85; PULSE 75; RESP 16; TEMP 36.7; O2SAT 100
--- NOTE | 2020-03-08 19:45 | PM.PNPUL ---
Progress Note: A&P Assessment and Plan (1) Recurrent pneumonia: Code(s): J18.9 - Pneumonia, unspecified organism Status: Acute Assessment and Plan: Restoril for sleep; having a cath tomorrow. Later, work up for GERD. He does not have a hx of pulm fibrosis although his records from [facility] say yes, he does. He had severe GERD, fundoplicaton in 2007 which seemed to have reversed itself. IgG subclasses Alpha 1 labs [place] valve Old records from [facility]; was diagnosed with trachebronchomalacia; declined airway stent; treatment can include CPAP and it is easiest to get people on this with a sleep diagnosis Needs out patient sleep study sputum for AFB needs out patient PFT/ 6 min walk, review old records;many admissions many places, need to review (2) Chronic cough: Code(s): R05 - Cough Status: Acute Assessment and Plan: (3) Nocturnal hypoxemia: Code(s): G47.34 - Idiopathic sleep related nonobstructive alveolar hypoventilation Status: Acute Assessment and Plan: has concentrator at home x 5 years Subjective Date/time seen: 03/08/20 19:45 This 54 yo man is seen in follow up for sepsis syndorme, wbc is higher, records from [facility] reviewed, close to 100 pp CHFpEF, pulmonary fibrosis, HLD, PE on Xarelto, HTN, GERD, AL 2011 with 6 stents, GERD, MRSA sepsis 05/20/2018, O2 2 L/min at night. 12/31/2019 visit Cc: 3 weeks of symptoms with chest pain; fever up to 101.2, c , SOB, malaise, myalgia, loss of taste, sputum production. Syncope for a few seconds with coughing. COVID negative bilateral infiltrates, increased ALT AST, D-dimer 0.46. No asthma or COPD history. Chest CT 12/30/19 bilat GGO sparing secondary pulmonary lobules in the periphery, likely infectious/inflammatory, NO PE. Suspected False negative COVID pneumonia. Needed O2 at one point. Work up for syncope. Echo with dilated left atrium. Increased LV thickness in a pattern consistent with mild LVH. Reactive mediastinal LAD. 01/03/[address] [facility] single vessel disease, EF 50% Quit tobacco 19 years ago, 7.5 pack year history Objective Data Vital Signs Vital Signs: Vital Signs - 24 hr 03/07/20 21:15 03/07/20 23:27 03/08/20 01:14 Temperature 36.2 C L Pulse Rate 74 75 Respiratory Rate 16 18 Blood Pressure 134/85 133/83 Pulse Oximetry 100 95 03/08/20 04:10 03/08/20 09:17 03/08/20 09:34 Temperature 36.7 C Pulse Rate 68 68 Respiratory Rate 12 18 Blood Pressure 134/90 Pulse Oximetry 94 97 100 03/08/20 16:00 Temperature 36.7 C Pulse Rate 75 Respiratory Rate 16 Blood Pressure 125/85 Pulse Oximetry 100 Intake/Output Intake/Output: Intake & Output 03/05/20 03/06/20 03/07/20 03/08/20 23:59 23:59 23:59 23:59 Intake Total 2700 2900 910 2170 Output Total 2400 352 220 8148 Balance 300 2050 85 570 Meds/Results Medications: Active Medications Generic Name Dose Route Start Last Admin Trade Name Freq PRN Reason Stop Dose Admin Acetaminophen 650 mg 02/27/20 10:20 Tylenol Tablet PO Q4H PRN Mild Pain (1-3) or Fever Hydrocodone Bitart/Acetaminophen 1 tab 02/27/20 10:20 03/06/20 02:43 [place] 5-325 Mg PO 1 tab Q4H PRN Administration Pain Rated 4-6 Albuterol 2 puff 02/27/20 16:23 Proventil Hfa INHALATION QIDRT PRN Shortness Of Breath Amitriptyline HCl 150 mg 02/27/20 21:00 03/07/20 21:18 Elavil PO 150 mg HS ROLAND Administration Amlodipine Besylate 5 mg 03/03/20 09:45 03/08/20 08:58 Norvasc PO 5 mg QAM ROLAND Administration Aspirin 81 mg 03/07/20 08:00 03/08/20 08:57 Aspirin Chewable PO 81 mg DAILY@0800 ROLAND Administration Atorvastatin Calcium 40 mg 02/28/20 09:00 03/08/20 08:57 Lipitor PO 40 mg DAILY ROLAND Administration Benzonatate 200 mg 02/28/20 14:00 03/08/20 13:44
[2020-03-08] MEDS: AMITRIPTYLINE HCL 25 MG TABLET 150 MG PO (21:56)
[2020-03-08 22:18] VITALS: BP 132/81; PULSE 69; RESP 18; TEMP 37.2; O2SAT 93
[2020-03-08] MEDS: TEMAZEPAM 15 MG CAPSULE PO (23:12)
[2020-03-09] VITALS (12 sets, daily range): BP systolic 109–131; BP diastolic 55–82; PULSE 65–78; RESP 12–18; TEMP 36–37.3; O2SAT 94–99
[2020-03-09] MEDS: SODIUM CHLORIDE 0.9% IV 500 ML 100 ML IV CONT ×4 (02:26→22:58)
[2020-03-09] MEDS: methylPREDNISolone (MEDROL) DOSEPACK 4 MG TABLETS PO ×2 (06:08→11:07)
[2020-03-09] MEDS: BENZONATATE 100 MG CAPSULE 200 MG PO ×3 (06:09→21:04)
[2020-03-09] MEDS: MORPHINE SULFATE 30 MG TABCR PO ×3 (06:09→21:04)
[2020-03-09] MEDS: GABAPENTIN 400 MG CAPSULE 800 MG PO ×3 (06:09→21:04)
[2020-03-09 06:47] LABS: Anion Gap 8 mmol/L (8-16); Blood Urea Nitrogen 29 mg/dL (9-20); Calcium 9.2 mg/dL (8.4-10.2); Carbon Dioxide 27 mmol/L (22-30); Chloride 99 mmol/L (98-107); Estimated CRCL calculation 78 ml/min; Estimated Glomerular Filt Rate > 60; Glucose 111 mg/dL (75-110); Potassium 4.4 mmol/L (3.4-5.0); Sodium 134 mmol/L (137-145)
[2020-03-09] MEDS: LOSARTAN POTASSIUM 100 MG TABLET PO (08:56)
[2020-03-09] MEDS: hydroCHLOROthiazide 25 MG TABLET PO (08:56)
[2020-03-09] MEDS: guaiFENesin 12 HR 600 MG TABCR PO ×2 (08:56→21:04)
[2020-03-09] MEDS: PARoxetine 20 MG TABLET 40 MG PO (08:57)
[2020-03-09] MEDS: FLUoxetine HCL 20 MG CAPSULE 40 MG PO (08:57)
[2020-03-09] MEDS: FUROSEMIDE 20 MG TABLET PO (08:57)
[2020-03-09] MEDS: FERROUS SULFATE 324 MG TABLET PO (08:58)
[2020-03-09] MEDS: PANTOPRAZOLE 40 MG TABLET PO ×2 (08:58→21:04)
[2020-03-09] MEDS: amLODIPine BESYLATE 5 MG TABLET PO (08:58)
[2020-03-09] MEDS: ATORVASTATIN 40 MG TABLET PO (08:58)
[2020-03-09] MEDS: ASPIRIN 81 MG CHEWABLE TABLET PO (08:58)
--- NOTE | 2020-03-09 09:35 | PM.PNCARD ---
Progress Note: A&P Assessment and Plan (1) Coronary artery disease: Code(s): I25.10 - Atherosclerotic heart disease of [place] coronary artery without angina pectoris Status: Acute Assessment and Plan: 54 y/o with h/o CAD, CHF who presented with shortness of breath, acute resp failure required BiPAP support in the setting of pneumonia who is seen in cardiac consultation for NSTMI Trop peaked at 3. Received IV heparin on admission he had few episode of recurrent chest pain due to recurring chest pain and history of recent non ST elevation myocardial infarction will proceed with cardiac catheterization. Xarelto on hold today. Plan for Cath this afternoon (2) Pneumonia: Code(s): J18.9 - Pneumonia, unspecified organism Status: Acute Assessment and Plan: Recurrent admissions with pneumonias. Pulmonary on board (3) Hypertension: Code(s): I10 - Essential (primary) hypertension Status: Acute Assessment and Plan: Had d/c metoprolol as HR was in low 40s continue amlodipine and losartan. resumed HCTZ (4) Sepsis: Code(s): A41.9 - Sepsis, unspecified organism Status: Resolved Assessment and Plan: Resolving. (5) NSTEMI (non-ST elevated myocardial infarction): Code(s): I21.4 - Non-ST elevation (NSTEMI) myocardial infarction Status: Acute Assessment and Plan: Likely type II [place]. Recent cath with patent stents and PDA lesion not significant by IFR. Continue ASA. Also on Xarelto for h/o PE Plan for Cath this afternoon (6) Respiratory failure: Code(s): J96.90 - Respiratory failure, unspecified, unspecified whether with hypoxia or hypercapnia Status: Acute Assessment and Plan: on home O2 at baseline. Subjective Date/time seen: 03/09/20 09:35 No overnight events. Feels good this am. denies chest pain or dyspnea. Review of Systems Review of Systems: All systems reviewed & are unremarkable except as noted in HPI and below Constitutional: Constitutional: Reports as per HPI Eyes: Eyes: Reports as per HPI ENT: Reports system reviewed and no additional complaints, except as documented and Reports as per HPI Cardiovascular: Cardiovascular: Reports as per HPI Respiratory: Respiratory: Reports as per HPI Gastrointestinal: Gastrointestinal: Reports as per HPI Genitourinary: Genitourinary: Reports as per HPI Musculoskeletal: Musculoskeletal: Reports as per HPI Exam Const: General: comfortable and no acute distress Nutritional Appearance: well nourished Orientation/consciousness: patient oriented x3 HENMT: Head: normal to inspection and atraumatic Ears: hearing grossly normal bilaterally Face and sinus: normal facial exam Eyes: General: appearance normal, both eyes and all related structures Pupils: Equal, round and reactive pupils present EOM: EOMs intact bilaterally Neck: Neck: supple Chest: Chest palpation & inspection: normal inspection of the chest Resp: Effort & Inspection: normal respiratory effort and no respiratory distress Auscultation: clear to auscultation bilaterally Cardio: Jugular venous distension: no JVD Rate: regular rate Heart sounds: S1 normal heart sound present, S2 normal heart sound present and no murmurs Peripheral pulses: Peripheral pulses 2+ throughout GI: Inspection: non-distended Auscultation: normal bowel sounds Skin: General skin exam: normal color Neuro: General: patient oriented x3 Cranial nerves: Yes Equal, round and reactive pupils present Extrem: General: normal to inspection and no clubbing, cyanosis or edema Objective Data Vital Signs Vital Signs: Vital Signs - 24 hr 03/08/20 16:00 03/08/20 22:18 03/09/20 05:52 Temperature 36.7 C 37.2 C 36.7 C Pulse Rate 75 69 65 Respiratory Rate 16 18 16 Blood Pressure 125/85 132/81 129/80 Pulse Oximetry 100 93 94 Intake/Output Intake/Output: Intake & Output 03/06/20 03/07/20 03/08/20 03/09/20
--- NOTE | 2020-03-09 13:26 | PM.IMPN ---
Progress Note: A&P Assessment and Plan (1) Sepsis: Code(s): A41.9 - Sepsis, unspecified organism Status: Resolved Assessment and Plan: (2) Person under investigation for COVID-19: Code(s): Z20.828 - Contact with and (suspected) exposure to other viral communicable diseases Status: Ruled-out Assessment and Plan: COVID [place] [id number]. Pt is on iv zosyn Day 6. rpt cxr suhail am From pulmology pt has a history of trachebronchomalacia and history of chronic airway disease withnonobstructive alveolar hypoventilation Pt has home oxygen concentrator at home. Discharge pt when awaiting AFB and IgG and Alpha 1 labs. 03/09/20 13:26 __Rolo Rodriguez is a 54-year-old male with history of coronary artery disease, congestive heart failure, paroxysmal atrial fibrillation, COPD, chronic respiratory failure on p.r.n. home oxygen, and pulmonary embolism on Xarelto who presented to the emergency department earlier this morning via EMS from home for evaluation of shortness of breath. Pt found to have nstemi seen by cardiology heparin stopped as troponin is trending down. Pt still very SOB needing BIPAP then. Cxr shows possible pneumonia. WCC is improving.Off BIPAP, BC is negative so far, sputum shows yeast. Pt has had pneumonia before, patient was see instrument engineer and workup in progress, today patient stats he is feeling bettter, patient with elevated tropes and c/o CP. today patient was seen by his cardologist is scheduled for cardiac cath, . will follow up, Pt is on iv zosyn only will continue, discussed with pulmonology patient is doing well and can be discharged, will continue to monitor and follow the recommendation from fundraising officer as well and possibly discharge the patient tomorrow Pt is improving, breathing is much better. awaiting AFB and IgG and Alpha 1 labs. seen by pulmology thanks for insight. [facility] discharge in 1-2 days time. (3) Acute and chronic respiratory failure with hypoxia: Code(s): J96.21 - Acute and chronic respiratory failure with hypoxia Status: Acute Assessment and Plan: Pt is on iv zosyn only day 6. Pt is on BIPAP PRN, BC is negative so far, sputum shows yeast. Pt denies smoking. cardiology have signed off, pulmology recommendation pending. could not start diflucan as it interacts with plavix . Pt has home oxygen concentrator. PT will need home oxygen assessment prior to discharge and sleep study on discharge. (4) Elevated troponin: Code(s): R79.89 - Other specified abnormal findings of blood chemistry Status: Acute Assessment and Plan: Off heparin now, sp NSTEMI due to increased demand from underlying sepsis and resp failure, patient is scheduled for cardiac catheterization today further recommendation to follow (5) Pneumonia: Code(s): J18.9 - Pneumonia, unspecified organism Status: Acute Assessment and Plan: See above (6) Chronic anemia: Code(s): D64.9 - Anemia, unspecified Status: Acute Assessment and Plan: On daily iron supplementation. (7) Hypertension: Code(s): I10 - Essential (primary) hypertension Status: Acute Assessment and Plan: Monitor BPs (8) Hyperlipidemia: Code(s): E78.5 - Hyperlipidemia, unspecified Status: Acute Assessment and Plan: Continue statin; LFTs within normal limits. Subjective Date/time seen: 03/09/20 13:26 __Rolo Rodriguez is a 54-year-old male with history of coronary artery disease, vivian
--- NOTE | 2020-03-09 13:53 | WPDMODSED ---
Moderate Sedation Note-Pt Data Patient Data Allergies Allergy/AdvReac Type Severity Reaction Status Date / Time lisinopril Allergy Mild Anaphylactic Verified 03/02/20 13:38 Shock warfarin [From Coumadin] Allergy Other Verified 03/02/20 13:38 Home Medications Medication Instructions Recorded Confirmed Type amitriptyline 150 mg PO HS 02/27/20 02/27/20 History amlodipine 5 mg PO DAILY 02/27/20 02/27/20 History aspirin 81 mg PO DAILY 02/27/20 02/27/20 History atorvastatin 40 mg PO DAILY 02/27/20 02/27/20 History cyclobenzaprine 10 mg PO TID 02/27/20 02/27/20 History fluoxetine 40 mg PO DAILY 02/27/20 02/27/20 History gabapentin 800 mg PO TID 02/27/20 02/27/20 History hydrochlorothiazide 12.5 mg PO DAILY 02/27/20 02/27/20 History iron 65 mg PO DAILY 02/27/20 02/27/20 History losartan 100 mg PO DAILY 02/27/20 02/27/20 History metoprolol tartrate 25 mg PO DAILY 02/27/20 02/27/20 History morphine 30 mg PO Q8H 02/27/20 02/29/20 History pantoprazole 40 mg PO BID 02/27/20 02/27/20 History paroxetine HCl 40 mg PO QAM 02/27/20 02/27/20 History rivaroxaban [Xarelto] 20 mg PO DAILY 02/27/20 02/27/20 History Current Medications: Active Medications Acetaminophen (Tylenol Tablet) 650 mg PO Q4H PRN PRN Reason: Mild Pain (1-3) or Fever Hydrocodone Bitart/Acetaminophen ([place] 5-325 Mg) 1 tab PO Q4H PRN PRN Reason: Pain Rated 4-6 Last Admin: 03/06/20 02:43 Dose: 1 tab Documented by: Albuterol (Proventil Hfa) 2 puff INHALATION QIDRT PRN PRN Reason: Shortness Of Breath Amitriptyline HCl (Elavil) 150 mg PO [facility] Last Admin: 03/08/20 21:56 Dose: 150 mg Documented by: Amlodipine Besylate (Norvasc) 5 mg PO [facility] Last Admin: 03/09/20 08:58 Dose: 5 mg Documented by: Aspirin (Aspirin Chewable) 81 mg PO DAILY@0800 [facility] Last Admin: 03/09/20 08:58 Dose: 81 mg Documented by: Atorvastatin Calcium (Lipitor) 40 mg PO DAILY [facility] Last Admin: 03/09/20 08:58 Dose: 40 mg Documented by: Benzonatate (Tessalon Perles) 200 mg PO Q8HR [facility] Last Admin: 03/09/20 06:09 Dose: 200 mg Documented by: Cyclobenzaprine HCl (Flexeril) 10 mg PO Q8HR PRN PRN Reason: Muscles spasms Ferrous Sulfate (Ferrous Sulfate) 324 mg PO DAILY@0800 [facility] Last Admin: 03/09/20 08:58 Dose: 324 mg Documented by: Fluoxetine HCl (Prozac) 40 mg PO DAILY [facility] Last Admin: 03/09/20 08:57 Dose: 40 mg Documented by: Furosemide (Lasix Tablet) 20 mg PO DAILY [facility] Last Admin: 03/09/20 08:57 Dose: 20 mg Documented by: Gabapentin (Neurontin) 800 mg PO Q8HR [facility] Last Admin: 03/09/20 06:09 Dose: 800 mg Documented by: Guaifenesin (Mucinex 12 Hr Tab) 600 mg PO Q12HR [facility] Last Admin: 03/09/20 08:56 Dose: 600 mg Documented by: Hydrochlorothiazide (Hydrochlorothiazide) 25 mg PO QAM [facility] Last Admin: 03/09/20 08:56 Dose: 25 mg Documented by: Piperacillin/Tazobactam/Dextrose (Zosyn 3.375 Gm/D5w 50ml Pm) 3.375 gm in 50 mls @ 100 mls/hr IVPB Q6HR [facility] Last Infusion: 03/09/20 11:37 Dose: Infused Documented by: Sodium Chloride (Normal Saline Iv) 500 mls @ 100 mls/hr IV CONT .Q5H [facility] Last Admin: 03/09/20 11:04 Dose: Not Given Documented by: Losartan Potassium (Cozaar) 100 mg PO DAILY [facility] Last Admin: 03/09/20 08:56 Dose: 100 mg Documented by: Methylprednisolone (Medrol Dosepak) 4 mg PO 0630,1200,1700,2100 [facility]; Taper Stop: 03/12/20 07:29 Last Admin: 03/09/20 11:07 Dose: 4 mg Documented by: Morphine Sulfate (Ms Contin) 30 mg PO Q8HR [facility] Last Admin: 03/09/20 06:09 Dose: 30 mg Documented by: Pantoprazole Sodium (Protonix) 40 mg PO Q12HR [facility] Last Admin: 03/09/20 08:58 Dose: 40 mg Documented by: Paroxetine HCl (Paxil) 40 mg PO QAM [facility] Last Admin: 03/09/20 08:57 Dose: 40 mg Documented by: Promethazine HCl (Phenergan Inj) 12.5 mg IV PUSH Q6H PRN PRN Reason: Nausea Rivaroxaban (Xarelto) 20 mg PO DAILY@1700 [facility] Last Admin: 03/08/20 13:18 Dose: Not Given Documented by: Temazepam (Restoril) 15 mg PO HS PRN PRN Reason: Inso
--- NOTE | 2020-03-09 14:16 | PC.NURSE ---
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
--- NOTE | 2020-03-09 14:47 | WPDCARDPROC ---
Cardiac Cath Procedure Note Date of procedure:: 03/09/20 Performing physician:: Dionicio Crow MD Procedure: 1. Selective coronary angiogram. 2. Right common femoral artery angiogram and Angio-Seal device for arterial hemostasis 3. Conscious sedation, starting time is 2:24 p.m. ending time is 2:44 p.m. h Allied Health Teacher: Dr. Dionicio Crow Complications: None. Sedation: Conscious sedation, local anesthesia, using 2 mg of Versed said, 25 mcg of fentanyl, and using 1% lidocaine for local anesthesia. Technique: After informed consent was obtained from patient, was brought to the pathology lab technician, put in the pathology lab technician table, prepped and draped in usual sterile fashion. Five [place] sheath was inserted into the right common femoral artery, through the sheath 5 [place] JL4 catheter inserted, advanced to the left coronary artery, left coronary artery angiogram was obtained. The catheter was exchanged over guidewire into a 5 [place] JR4 catheter, advanced to the right coronary artery, right coronary artery angiogram was obtained. no hemodynamics measurement was then due to technical difficulty as the system was not able to measure accurately however there is waveform indicating arterial pressure but the pressure was inappropriate for his normal hemodynamics. So left ventricular pressure was not done and no left ventricular catheterization was done. The catheter then was pulled, the sheath was pulled applying Angio-Seal device for arterial hemostasis, after angiogram to the right common femoral artery. Patient tolerated the procedure no complication, taken from the pathology lab technician to his room in stable condition stable vital signs. Hemodynamics: was not done due to system error Angiographic findings: Left main: Medium size artery no significant disease or stenosis. Lad medium size artery showed patent stent with minimal InStent restenosis, there is a 2nd diagonal branch that has ostial narrowing that is about 50% Left circumflex artery, medium size artery, no significant disease or stenosis. RCA: Dominant vessel, showed patent stents, with distal vessel disease less than 50% Recommendation: Maximum medical treatment. Risk factor modification.
--- NOTE | 2020-03-09 14:57 | PM.PNPUL ---
Progress Note: A&P Assessment and Plan (1) Pneumonia: Qualifiers: Pneumonia type: due to unspecified organism Laterality: bilateral Lung location: unspecified part of lung Qualified Code(s): J18.9 - Pneumonia, unspecified organism Code(s): J18.9 - Pneumonia, unspecified organism Status: Acute Assessment and Plan: - clinically improving - continue Zosyn for a total of 7-10 days - WBC elevation may be from systemic steroids which can be discontinued. - needs outpatient CT chest non contrast in 4-6 weeks and f/u with Dr. Flores as outpatient - can be discharged home from pulmonary perspective Subjective Date/time seen: 03/09/20 14:57 Interval history: Moises is doing well and feeling a lot better. Sputum production is down and he's less short of breath. CXR is rapidly improving. He says he get's respiratory infections every few months. 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 He denies any symptoms of stridor. He has an insignificant smoking history an quit at the age of 34. Review of Systems Review of Systems: All systems reviewed & are unremarkable except as noted in HPI and below Exam Const: General: no acute distress HENMT: Mouth: Yes moist mucous membranes Eyes: General: appearance normal, both eyes and all related structures Neck: Neck: supple and no JVD Resp: Auscultation: clear to auscultation bilaterally, no crackles, no rales, no rhonchi, no wheezes and diminished lung sounds Cardio: Rate: regular rate Rhythm: regular rhythm GI: Auscultation: normal bowel sounds Neuro: Cognition (Neuro): normal cognition Speech: normal speech Extrem: General: normal to inspection, no edema and no pedal edema Psych: Mental Status: mental status grossly normal Affect: normal affect Objective Data Vital Signs Vital Signs: Vital Signs - 24 hr 03/08/20 16:00 03/08/20 22:18 03/09/20 05:52 Temperature 36.7 C 37.2 C 36.7 C Pulse Rate 75 69 65 Respiratory Rate 16 18 16 Blood Pressure 125/85 132/81 129/80 Pulse Oximetry 100 93 94 03/09/20 13:43 Temperature 36.0 C L Pulse Rate 66 Respiratory Rate 12 Blood Pressure 109/79 Pulse Oximetry 99 Intake/Output Intake/Output: Intake & Output 03/06/20 03/07/20 03/08/20 03/09/20 23:59 23:59 23:59 23:59 Intake Total 2900 910 2670 1845 Output Total 745 056 0443 1650 Balance 2050 85 250 195 Meds/Results Medications: Active Medications Generic Name Dose Route Start Last Admin Trade Name Freq PRN Reason Stop Dose Admin Acetaminophen 650 mg 02/27/20 10:20 Tylenol Tablet PO Q4H PRN Mild Pain (1-3) or Fever Hydrocodone Bitart/Acetaminophen 1 tab 02/27/20 10:20 03/06/20 02:43 [place] 5-325 Mg PO 1 tab Q4H PRN Administration Pain Rated 4-6 Albuterol 2 puff 02/27/20 16:23 Proventil Hfa INHALATION QIDRT PRN Shortness Of Breath Amitriptyline HCl 150 mg 02/27/20 21:00 03/08/20 21:56 Elavil PO 150 mg HS ROLAND Administration Amlodipine Besylate 5 mg 03/03/20 09:45 03/09/20 08:58 Norvasc PO 5 mg QAM ROLAND Administration Aspirin 81 mg 03/07/20 08:00 03/09/20 08:58 Aspirin Chewable PO 81 mg DAILY@0800 ROLAND Administration Atorvastatin Calcium 40 mg 02/28/20 09:00 03/09/20 08:58 Lipitor PO 40 mg DAILY ROLAND Administration Benzonatate 200 mg 02/28/20 14:00 03/09/20 13:59 Tessalon Perles PO 200 mg Q8HR ROLAND Administration Cyclobenzaprine HCl 10 mg 02/27/20 19:12 Flexeril PO Q8HR PRN Muscles spasms Ferrous Sulfate 324 mg 02/28/20 08:00 03/09/20 08:58 Ferrous Sulfate PO 324 mg DAILY@0800 ROLAND Administration Fluoxetine HCl 40 mg 02/28/20 09:00 03/09/20 08:57 Prozac PO 40 mg DAILY ROLAND Administration Furosemide 20 mg 03/07/20 09:00 03/09/20 08:57 Lasix Tablet PO 20 mg DAILY ROLAND Administration Gabapentin 800 mg 02/27/20 22:00 03/09/20 13:59 [place]
--- NOTE | 2020-03-09 16:23 | PC.NURSE ---
PAtient returned from [facility] per bed.
[2020-03-09] MEDS: AMITRIPTYLINE HCL 25 MG TABLET 150 MG PO (21:04)
[2020-03-09 21:43] LABS: Immunoglobulin G, Serum 760 mg/dL (600-1640); Immunoglobulin G1 453 mg/dL (382-929); Immunoglobulin G2 219 mg/dL (241-700); Immunoglobulin G3 10 mg/dL (22-178); Immunoglobulin G4 38.9 mg/dL (4.0-86.0)
[2020-03-10 01:09] VITALS: BP 110/69; PULSE 67; RESP 14; TEMP 36.2; O2SAT 94
[2020-03-10] MEDS: SODIUM CHLORIDE 0.9% IV 500 ML 100 ML IV CONT (06:11)
[2020-03-10 06:14] VITALS: BP 143/79; PULSE 62; RESP 16; TEMP 36.8; O2SAT 97
[2020-03-10] MEDS: MORPHINE SULFATE 30 MG TABCR PO ×2 (06:14→14:40)
[2020-03-10] MEDS: GABAPENTIN 400 MG CAPSULE 800 MG PO ×2 (06:15→14:39)
[2020-03-10] MEDS: BENZONATATE 100 MG CAPSULE 200 MG PO ×2 (06:20→14:40)
[2020-03-10 08:22] VITALS: TEMP 36.8
[2020-03-10] MEDS: ASPIRIN 81 MG CHEWABLE TABLET PO (08:31)
[2020-03-10] MEDS: FUROSEMIDE 20 MG TABLET PO (08:31)
[2020-03-10] MEDS: hydroCHLOROthiazide 25 MG TABLET PO (08:32)
[2020-03-10] MEDS: PANTOPRAZOLE 40 MG TABLET PO (08:32)
[2020-03-10] MEDS: ATORVASTATIN 40 MG TABLET PO (08:32)
[2020-03-10] MEDS: amLODIPine BESYLATE 5 MG TABLET PO (08:32)
[2020-03-10] MEDS: PARoxetine 20 MG TABLET 40 MG PO (08:32)
[2020-03-10] MEDS: LOSARTAN POTASSIUM 100 MG TABLET PO (08:32)
[2020-03-10] MEDS: guaiFENesin 12 HR 600 MG TABCR PO (08:32)
[2020-03-10] MEDS: FLUoxetine HCL 20 MG CAPSULE 40 MG PO (08:32)
[2020-03-10] MEDS: FERROUS SULFATE 324 MG TABLET PO (08:32)
--- NOTE | 2020-03-10 10:36 | PM.PNCARD ---
Progress Note: A&P Assessment and Plan (1) Coronary artery disease: Code(s): I25.10 - Atherosclerotic heart disease of [place] coronary artery without angina pectoris Status: Acute Assessment and Plan: 54 y/o with h/o CAD, CHF who presented with shortness of breath, acute resp failure required BiPAP support in the setting of pneumonia who is seen in cardiac consultation for NSTMI Trop peaked at 3. Likely due to increase demand from sepsis on admission. he received IV heparin on admission. Cath reviewed with patent stents and mild to moderate disease in Diag and distal RCA Continue maximal medical therapy with ASA, Xarelto (h/o PE) and statin (2) Pneumonia: Qualifiers: Pneumonia type: due to unspecified organism Laterality: bilateral Lung location: unspecified part of lung Qualified Code(s): J18.9 - Pneumonia, unspecified organism Code(s): J18.9 - Pneumonia, unspecified organism Status: Acute Assessment and Plan: Recurrent admissions with pneumonias. Pulmonary on board (3) Hypertension: Code(s): I10 - Essential (primary) hypertension Status: Acute Assessment and Plan: Had d/c metoprolol as HR was in low 40s continue amlodipine and losartan. resumed HCTZ (4) NSTEMI (non-ST elevated myocardial infarction): Code(s): I21.4 - Non-ST elevation (NSTEMI) myocardial infarction Status: Acute Assessment and Plan: Likely type II PR. Recent cath with patent stents and PDA lesion not significant by IFR. Continue ASA. Also on Xarelto for h/o PE Plan for Cath this afternoon (5) Respiratory failure: Code(s): J96.90 - Respiratory failure, unspecified, unspecified whether with hypoxia or hypercapnia Status: Acute Assessment and Plan: on home O2 at baseline. Subjective Date/time seen: 03/10/20 10:36 Feels well and excited about going home today. Review of Systems Review of Systems: All systems reviewed & are unremarkable except as noted in HPI and below Constitutional: Constitutional: Reports as per HPI Eyes: Eyes: Reports as per HPI ENT: Reports system reviewed and no additional complaints, except as documented and Reports as per HPI Cardiovascular: Cardiovascular: Reports as per HPI Respiratory: Respiratory: Reports as per HPI Gastrointestinal: Gastrointestinal: Reports as per HPI Genitourinary: Genitourinary: Reports as per HPI Musculoskeletal: Musculoskeletal: Reports as per HPI Exam Const: General: comfortable and no acute distress Nutritional Appearance: well nourished Orientation/consciousness: patient oriented x3 HENMT: Head: normal to inspection and atraumatic Ears: hearing grossly normal bilaterally Face and sinus: normal facial exam Eyes: General: appearance normal, both eyes and all related structures Pupils: Equal, round and reactive pupils present EOM: EOMs intact bilaterally Neck: Neck: supple Chest: Chest palpation & inspection: normal inspection of the chest Resp: Effort & Inspection: normal respiratory effort and no respiratory distress Auscultation: clear to auscultation bilaterally Cardio: Jugular venous distension: no JVD Rate: regular rate Heart sounds: S1 normal heart sound present, S2 normal heart sound present and no murmurs Peripheral pulses: Peripheral pulses 2+ throughout GI: Inspection: non-distended Auscultation: normal bowel sounds Skin: General skin exam: normal color Neuro: General: patient oriented x3 Cranial nerves: Yes Equal, round and reactive pupils present Extrem: General: normal to inspection and no clubbing, cyanosis or edema Objective Data Vital Signs Vital Signs: Vital Signs - 24 hr 03/09/20 13:43 03/09/20 14:55 03/09/20 15:15 Temperature 36.0 C L 36.8 C Pulse Rate 66 67 68 Respiratory Rate 12 14 14 Blood Pressure 109/79 127/82 116/82 Pulse Oximetry 99 94 98 03/09/20 15:30 03/09/20 15:46 03/09/20 16:00 Temperature
--- NOTE | 2020-03-10 11:39 | PM.IMPN ---
Progress Note: A&P Assessment and Plan (1) Sepsis: Code(s): A41.9 - Sepsis, unspecified organism Status: Resolved Assessment and Plan: (2) Person under investigation for COVID-19: Code(s): Z20.828 - Contact with and (suspected) exposure to other viral communicable diseases Status: Ruled-out Assessment and Plan: COVID [place] [address]. Pt is on iv zosyn Day 6. rpt cxr suhail am From pulmology pt has a history of trachebronchomalacia and history of chronic airway disease withnonobstructive alveolar hypoventilation Pt has home oxygen concentrator at home. Discharge pt when awaiting AFB and IgG and Alpha 1 labs. 03/09/20 13:26 __Rolo Rodriguez is a 54-year-old male with history of coronary artery disease, congestive heart failure, paroxysmal atrial fibrillation, COPD, chronic respiratory failure on p.r.n. home oxygen, and pulmonary embolism on Xarelto who presented to the emergency department earlier this morning via EMS from home for evaluation of shortness of breath. Pt found to have nstemi seen by cardiology heparin stopped as troponin is trending down. Pt still very SOB needing BIPAP then. Cxr shows possible pneumonia. WCC is improving.Off BIPAP, BC is negative so far, sputum shows yeast. Pt has had pneumonia before, patient was see electronic bench technician and workup in progress, today patient stats he is feeling bettter, patient with elevated tropes and c/o CP. today patient was seen by his cardologist is scheduled for cardiac cath, . will follow up, Pt is on iv zosyn only will continue, discussed with pulmonology patient is doing well and can be discharged, will continue to monitor and follow the recommendation from urban planning professor as well and possibly discharge the patient tomorrow Pt is improving, breathing is much better. awaiting AFB and IgG and Alpha 1 labs. seen by pulmology thanks for insight. [facility] discharge in 1-2 days time. (3) Acute and chronic respiratory failure with hypoxia: Code(s): J96.21 - Acute and chronic respiratory failure with hypoxia Status: Acute Assessment and Plan: Pt is on iv zosyn only day 6. Pt is on BIPAP PRN, BC is negative so far, sputum shows yeast. Pt denies smoking. cardiology have signed off, pulmology recommendation pending. could not start diflucan as it interacts with plavix . Pt has home oxygen concentrator. PT will need home oxygen assessment prior to discharge and sleep study on discharge. (4) Elevated troponin: Code(s): R79.89 - Other specified abnormal findings of blood chemistry Status: Acute Assessment and Plan: Off heparin now, sp NSTEMI due to increased demand from underlying sepsis and resp failure, patient is scheduled for cardiac catheterization today further recommendation to follow (5) Pneumonia: Qualifiers: Pneumonia type: due to unspecified organism Laterality: bilateral Lung location: unspecified part of lung Qualified Code(s): J18.9 - Pneumonia, unspecified organism Code(s): J18.9 - Pneumonia, unspecified organism Status: Acute Assessment and Plan: See above (6) Chronic anemia: Code(s): D64.9 - Anemia, unspecified Status: Acute Assessment and Plan: On daily iron supplementation. (7) Hypertension: Code(s): I10 - Essential (primary) hypertension Status: Acute Assessment and Plan: Monitor BPs (8) Hyperlipidemia: Code(s): E78.5 - Hyperlipidemia, unspecified Status: Acute Assessment and Plan: Continue statin; LFTs within norm
[2020-03-10 12:00] VITALS: BP 140/74; PULSE 78; RESP 14; TEMP 37; O2SAT 98
[2020-03-10 15:22] VITALS: BP 126/76; PULSE 72; RESP 12; TEMP 37; O2SAT 99
[2020-03-11 07:00] LABS: Alpha-1-Antitrypsin, QN 159 mg/dL (83-199)
--- NOTE | 2020-03-25 12:03 | PM.DS ---
DS: Admitting Diagnosis Admitting Diagnosis Admitting Diagnosis: Pneumonia, COVID PUI, Resp failure, Chest Pain DS: Discharge Diagnosis Discharge Diagnosis (1) Sepsis: Code(s): A41.9 - Sepsis, unspecified organism Status: Resolved Assessment and Plan: (2) Person under investigation for COVID-19: Code(s): Z20.828 - Contact with and (suspected) exposure to other viral communicable diseases Status: Ruled-out Assessment and Plan: COVID IS [place] [address]. Pt is on iv zosyn Day 6. rpt cxr suhail am From pulmology pt has a history of trachebronchomalacia and history of chronic airway disease withnonobstructive alveolar hypoventilation Pt has home oxygen concentrator at home. Discharge pt when awaiting AFB and IgG and Alpha 1 labs. 03/09/20 13:26 __Rolo Rodriguez is a 54-year-old male with history of coronary artery disease, congestive heart failure, paroxysmal atrial fibrillation, COPD, chronic respiratory failure on p.r.n. home oxygen, and pulmonary embolism on Xarelto who presented to the emergency department earlier this morning via EMS from home for evaluation of shortness of breath. Pt found to have nstemi seen by cardiology heparin stopped as troponin is trending down. Pt still very SOB needing BIPAP then. Cxr shows possible pneumonia. WCC is improving.Off BIPAP, BC is negative so far, sputum shows yeast. Pt has had pneumonia before, patient was see counter dish carrier and workup in progress, today patient stats he is feeling bettter, patient with elevated tropes and c/o CP. today patient was seen by his cardologist is scheduled for cardiac cath, . will follow up, Pt is on iv zosyn only will continue, discussed with pulmonology patient is doing well and can be discharged, will continue to monitor and follow the recommendation from records supervisor as well and possibly discharge the patient tomorrow Pt is improving, breathing is much better. awaiting AFB and IgG and Alpha 1 labs. seen by pulmology thanks for insight. Hope[facility]ul discharge in 1-2 days time. (3) Acute and chronic respiratory failure with hypoxia: Code(s): J96.21 - Acute and chronic respiratory failure with hypoxia Status: Acute Assessment and Plan: Pt is on iv zosyn only day 6. Pt is on BIPAP PRN, BC is negative so far, sputum shows yeast. Pt denies smoking. cardiology have signed off, pulmology recommendation pending. could not start diflucan as it interacts with plavix . Pt has home oxygen concentrator. PT will need home oxygen assessment prior to discharge and sleep study on discharge. (4) Elevated troponin: Code(s): R79.89 - Other specified abnormal findings of blood chemistry Status: Acute Assessment and Plan: Off heparin now, sp NSTEMI due to increased demand from underlying sepsis and resp failure, patient is scheduled for cardiac catheterization today further recommendation to follow (5) Pneumonia: Qualifiers: Pneumonia type: due to unspecified organism Laterality: bilateral Lung location: unspecified part of lung Qualified Code(s): J18.9 - Pneumonia, unspecified organism Code(s): J18.9 - Pneumonia, unspecified organism Status: Acute Assessment and Plan: See above (6) Chronic anemia: Code(s): D64.9 - Anemia, unspecified Status: Acute Assessment and Plan: On daily iron supplementation. (7) Hypertension: Code(s): I10 - Essential (primary) hypertension Status: Acute Assessment and Plan: Monitor BPs (8) Hyperlipidemia: Code(s):
== END 2020-03-10 16:44 | disposition home or self-care (01) | DRG 871 ==
LOC: ANHED 13:04 → ANHICU 16:52 → ANHIMU 02-29 12:03 → ANH3MED 02-29 19:08 → ANHICU 03-11 11:04 → ANHIMU 03-11 11:04
PROVIDERS: Family Medicine; Internal Medicine; Internal Medicine Cardiovascular Disease; Internal Medicine Critical Care Medicine; Physician Assistant; Specialist; Admitting Provider Internal Medicine; Emergency Provider Emergency Medicine; Visit Provider Family Medicine
PROC: 4A023N8 Measurement of Cardiac Sampling and Pressure, Bilateral, Percutaneous Approach (ICD-10-PCS; CPT 93454; principal; 2020-03-09 13:00)
PROC: 4A023N8 Measurement of Cardiac Sampling and Pressure, Bilateral, Percutaneous Approach (ICD-10-PCS; 2020-03-09 13:00)
DX: A41.9 Sepsis, unspecified organism (principal); J18.9 Pneumonia, unspecified organism; J96.21 Acute and chronic respiratory failure with hypoxia; I21.A1 Myocardial infarction type 2; I25.10 Atherosclerotic heart disease of native coronary artery without angina pectoris; J44.9 Chronic obstructive pulmonary disease, unspecified; E78.5 Hyperlipidemia, unspecified; Z86.711 Personal history of pulmonary embolism; Z20.828 Contact with and (suspected) exposure to other viral communicable diseases; Z99.81 Dependence on supplemental oxygen; D64.9 Anemia, unspecified; R13.10 Dysphagia, unspecified; K21.9 Gastro-esophageal reflux disease without esophagitis; I11.0 Hypertensive heart disease with heart failure; I50.9 Heart failure, unspecified; J39.8 Other specified diseases of upper respiratory tract; G47.34 Idiopathic sleep related nonobstructive alveolar hypoventilation
CPT/HCPCS: 36415; 36600; 71045; 80048; 80053; 80202; 82103; 82104; 82375; 82728; 82784; 82787; 82805; 83036; 83050; 83605; 83615; 83735; 83880; 84443; 84484; 85025; 85027; 85610; 85730; 86140; 87040; 87070; 87205; 87449; 87635; 87899; 92611; 93005; 93454; 94002; 94003; 94667; 96361; 96365; 96366; 96367; 96375; 99285; A9270; C1760; C1887; C1894; C8929; C9803; G0269; G0378; J0456; J0696; J1100; J1644; J2250; J2543; J3010; J3370; J7030; J7040; Q9957; U0003

== ENCOUNTER 2020-11-30 19:37 | Inpatient (IN) | payer MEDICARE, MEDICAID, SELFPAY ==
--- NOTE | ~2020-11-30 | US_ITS ---
EXAMINATION: US venous doppler [facility] DATE: 12/01/2020 14:55 INDICATION: Shortness of breath TECHNIQUE: Grayscale ultrasound images without and with compression and Doppler ultrasound images of the bilateral lower extremity veins were obtained. COMPARISON: None. FINDINGS: The visualized portions of right common femoral vein, profunda (deep) femoral vein, femoral vein, pop liteal vein, posterior tibial veins, peroneal veins, gastrocnemius vein and greater saphenous vein ou tflow are patent. The visualized portions of left common femoral vein, profunda femoral vein, femoral vein, popliteal v ein, posterior tibial veins, peroneal veins, gastrocnemius vein and greater saphenous vein outflow ar e patent. IMPRESSION: 1. No deep venous thrombosis in either lower limb. Reviewed, dictated and finalized at location A.
--- NOTE | ~2020-11-30 | XR_ITS ---
XR chest 1V portable DATE: 12/06/2020 15:42 INDICATION: Postbronchoscopy; evaluate for pneumothorax TECHNIQUE: Portable upright AP chest on 12/06/2020 at 1534 hours COMPARISON: 12/04/2020 portable AP chest FINDINGS: There is no evidence of pneumothorax or pneumomediastinum following bronchoscopy. Extensive bilateral pulmonary infiltrates are again noted, most prominent in the mid and particularly lower lung zones. IMPRESSION: No evidence of pneumothorax postbronchoscopy Reviewed, dictated and finalized at location A.
--- NOTE | ~2020-11-30 | XR_ITS ---
XR chest 1V portable DATE: 12/04/2020 05:36 INDICATION: Pneumonia TECHNIQUE: Portable AP chest on 12/04/2020 at 0535 hours COMPARISON: 12/02/2020 portable AP chest at 0732 hours FINDINGS: Heart size appears borderline or enlarged, not optimally evaluated on AP projection because of magnification. There are patchy bilateral pulmonary infiltrates which are more prominent centrally and in the lower lung zones, increased in the right lower lung since 12/02/2020; differential diagnosis includes pulmon sruthi edema and/or extensive bilateral pneumonia. There is minimal if any pleural effusion. No pneumothorax. IMPRESSION: Persistent extensive bilateral pulmonary infiltrates, increased in the right lower lung s jason 12/02/2020 Reviewed, dictated and finalized at location A. IMPRESSION: Persistent extensive bilateral pulmonary infiltrates, increased in the right lower lung since 12/02/2020
--- NOTE | ~2020-11-30 | XR_ITS ---
EXAMINATION: XR chest 1V portable DATE: 12/02/2020 07:37 INDICATION: Pulmonary edema. TECHNIQUE: A single frontal view of the chest was obtained. COMPARISON: Chest single view 11/30/2020, chest CT 11/30/2020, chest 2 views 05/16/2018 FINDINGS: There are airspace and interstitial opacities in all lung zones bilaterally with chronic ar eas of architectural distortion. No pleural effusion or pneumothorax. Cardiomegaly is noted. There ar e surgical clips in the abdomen. IMPRESSION: 1. 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 2. Cardiomegaly. Reviewed, dictated and finalized at location B. IMPRESSION: 1. Stable diffuse lung disease, consistent with pulmonary edema versus pneumoni a superimposed on chronic lung disease. 2. Cardiomegaly.
--- NOTE | ~2020-11-30 | CT_ITS ---
EXAMINATION: CTA chest PE protocol EXAM DATE: 11/30/2020 21:49 INDICATION: Shortness of breath. TECHNIQUE: Spiral CTA of the chest (pulmonary arteries) was performed with 100 cc Omnipaque 350 intr avenous contrast injection. Images were acquired during the pulmonary arterial phase. Coronal maxi mum intensity projection 3D-reconstructions were created by the technologist on dedicated workstation . Axial, coronal and sagittal reformatted images were reviewed. The dose-length product (DLP) for t his examination was 664.12 mGy-cm. The exposure was tailored according to patient size (auto mA exp osure control), and iterative reconstruction (ASIR) was used as additional dose reduction technique. There is no prior study for comparison. FINDINGS: There are no pulmonary emboli. Mild cardiomegaly. There is small right pleural effusion, an d a trace left pleural effusion. Moderate amount of bilateral predominantly groundglass airspace dise ase with small regions of confluence and interlobular septal thickening, differential diagnosis inclu ding edema, infection, or chronic processes such as sarcoidosis or cryptogenic organizing pneumonia. There are significantly pathologically enlarged paratracheal, prevascular and hilar lymph nodes. For example a prevascular lymph node measures 2.7 x 1.7 cm, and a right hilar lymph node measures 2.5 x 1 .7 cm. Prominent number of normal-sized bilateral axillary lymph nodes. Possible coronary arterial st ents, versus some dense coronary artery calcifications. Small gastroesophageal hiatal hernia. IMPRESSION: 1. Moderate amount of bilateral groundglass opacities with interlobular septal thickening and lympha denopathy. Acute considerations include edema and infection. More chronic processes such as sarcoidos is, silicosis or lymphoma are also possible. Clinical correlation, consider pulmonary consult. 2. Small right, trace left pleural effusions. 3. Cardiomegaly. 4. No pulmonary emboli. Reviewed, dictated and finalized at location A. IMPRESSION: 1. Moderate amount of bilateral groundglass opacities with interlobular septal thickening and lymphadenopathy. Acute considerations include edema and infecti on. More chronic processes such as sarcoidosis, silicosis or lymphoma are also possible. Clinical correlation, consider pulmonary consult. 2. Small right, trace left pleural effusions. 3. Cardiomegaly. 4. No pulmonary emboli.
--- NOTE | ~2020-11-30 | XR_ITS ---
EXAMINATION: XR chest 1V portable EXAM DATE: 11/30/2020 20:08 INDICATION: Shortness of breath, left-sided chest pain, dizziness. History hypertension and COPD. TECHNIQUE: Portable AP frontal chest x-ray was obtained. Comparison is made to prior examination from 03/06/2020. FINDINGS: There is diffuse bilateral ill-defined acute airspace disease, pneumonia or edema. COVID 19 should also be considered as a possibility. No pneumothorax or pleural effusion. The cardiomediastin al silhouette is prominent but magnified on this AP technique. There are mild bony degenerative clark es. IMPRESSION: 1. Diffuse bilateral edema or infection. Reviewed, dictated and finalized at location A.
[2020-11-30 19:51] VITALS: BP 154/91; PULSE 56; RESP 16; TEMP 36.8; O2SAT 92
[2020-11-30 19:55] VITALS: BP 154/91; RESP 14; TEMP 36.8; O2SAT 98
--- NOTE | 2020-11-30 19:57 | ECG_ITS ---
Measurements Intervals [place] Rate: 58 P: 54 TN: 178 QRS: -2 QRSD: 110 T: 64 QT: 442 QTc: 435 Interpretive Statements SINUS BRADYCARDIA INTRAVENTRICULAR CONDUCTION DELAY LEFT VENTRICULAR HYPERTROPHY AND ST-T CHANGE BORDERLINE R WAVE PROGRESSION, ANTERIOR LEADS CONSIDER HIGH LATERAL INFARCT, AGE INDERTERMINATE BASELINE ARTIFACT- I, II, III, AVR, AVF, V1-V6 ABNORMAL ECG Electronically Signed On 12-01-2020 6:51:48 CDT by Yanick Toure D.O.
--- NOTE | 2020-11-30 20:09 | ED.GENADULT ---
HPI - General Adult General Chief complaint: Dizziness Stated complaint: Dizzy, passed out, difficulty breathing Time Seen by Provider: 11/30/20 19:53 Source: patient History of Present Illness HPI narrative: Patient is a 54 y/o male complaining of moderate dizziness for last 2 weeks. He describes the dizziness as a light-headed sensation. There is no alleviating or exacerbating factor. He denies any room spinning sensation. He states that he passed out several time. He also has some chest pain and SOB. He noticed dark stool a few days ago. He states that he is on Xarelto for history of PE. Related Data Home Medications Medication Instructions Recorded Confirmed Xarelto 20 mg PO DAILY 02/27/20 02/27/20 amitriptyline 150 mg PO HS 02/27/20 11/30/20 amlodipine 5 mg PO DAILY 02/27/20 11/30/20 aspirin 81 mg PO DAILY 02/27/20 11/30/20 atorvastatin 40 mg PO DAILY 02/27/20 02/27/20 cyclobenzaprine 10 mg PO TID 02/27/20 02/27/20 fluoxetine 40 mg PO DAILY 02/27/20 02/27/20 gabapentin 800 mg PO TID 02/27/20 02/27/20 iron 65 mg PO DAILY 02/27/20 02/27/20 losartan 100 mg PO DAILY 02/27/20 02/27/20 morphine 30 mg PO Q8H 02/27/20 02/29/20 pantoprazole 40 mg PO BID 02/27/20 02/27/20 paroxetine HCl 40 mg PO QAM 02/27/20 02/27/20 albuterol sulfate [Proventil HFA] 2 puff INHALATION PRN PRN 11/30/20 11/30/20 Allergies Allergy/AdvReac Type Severity Reaction Status Date / Time lisinopril Allergy Mild Anaphylactic Verified 03/02/20 13:38 Shock warfarin [From Coumadin] Allergy Other Verified 03/02/20 13:38 Review of Systems Constitutional: Constitutional: Denies chills, Denies fever(s), Denies headache(s) and Denies weakness Eyes: Eyes: Denies blurry vision ENT: Denies headache(s) and Denies neck pain Cardiovascular: Cardiovascular: Reports chest pain and Reports dyspnea Respiratory: Respiratory: Reports cough and Reports dyspnea Gastrointestinal: Gastrointestinal: Denies abdominal pain, Reports melena, Denies diarrhea, Denies nausea and Denies vomiting Genitourinary: Genitourinary: Denies hematuria and Denies dysuria Musculoskeletal: Musculoskeletal: Denies back pain and Denies neck pain Neurologic: Reports dizziness, Denies headache(s) and Denies weakness [facility] Past Medical History Medical History Chronic anemia Chronic back pain On long-term opioid therapy. Chronic cough Chronic obstructive pulmonary disease Chronic respiratory failure with hypoxia On 4 liters nasal cannula at nighttime. Congestive heart failure Coronary artery disease Gastroesophageal reflux disease History of pulmonary fibrosis Hyperlipidemia Hypertension Nocturnal hypoxemia Pulmonary embolism Recurrent pneumonia Tracheobronchomalacia determined by bronchoscopy Surgical History Surgical History History of back surgery x3. History of fasciotomy Right forearm. History of left heart catheterization History of Keith fundoplication History of percutaneous coronary intervention Cardiac stent x6. Family History Family History Father Diabetes mellitus Mother Hypertension Congestive heart failure Social History Social History Social History: Surrogate decision maker: Jenny Seth, spouse. Code status: Full code. Smoking packs per day: 0.50 Smoking cigarettes per day: 10.0 Smoking status: Former smoker Tobacco type: cigarettes Alcohol intake: former Substance use: never Substance use type: does not use Additional living arrangements comments: Lives in [place] with his spouse. Gender identity (if verbalized by the patient): Male Spiritual care concerns: No Exam Const: General: no acute distress and well developed Orientation/consciousness: oriented to person, oriented to place, orie
[2020-11-30 20:24] LABS: Basophils Percent Auto 0.4 % (0.2-1.2); Eosinophils Absolute Auto 0.4 K/mm3 (0-0.3); Eosinophils Percent Auto 7.2 % (0-4.4); Hematocrit 25.7 % (42.0-52.0); Hemoglobin 7.9 g/dL (14.0-18.0); Immature Granulocyte Absolute 0.18 K/mm3 (0.00-0.031); Immature Granulocyte Percent A 3.3 % (0-0.5); Lymphocytes Absolute Auto 1.09 K/mm3 (0.9-3.2); Lymphocytes Percent Auto 20.1 % (18.3-44.2); Mean Corpuscular HGB Conc 30.7 g/dl (32-36); Mean Corpuscular Hemoglobin 22.7 pg (26-34); Mean Corpuscular Volume 73.9 fl (80-100); Monocytes Absolute Auto 0.5 K/mm3 (0.1-0.6); Monocytes Percent Auto 9.2 % (2.6-8.5); Neutrophils Absolute Auto 3.2 K/mm3 (1.3-6.7); Neutrophils Percent Auto 59.8 % (45.5-73.1); Nucleated Red Blood Cells Absolute Auto 0.1 K/mm3 (0.0-0.012); Nucleated Red Blood Cells Perc 1.3 % (0.0-0.2); Platelet Count Result 294 k/mm3 (150-375); Red Blood Count 3.48 M/mm3 (4.6-6.20); Red Cell Distribution Width 16.1 % (11.5-14.5); White Blood Count 5.4 K/mm3 (4.5-10.0)
[2020-11-30 20:35] LABS: Alanine Aminotransferase 8 U/L (4-50); Albumin Level 3.5 g/dL (3.5-5.1); Alkaline Phosphatase 89 U/L (38-126); Anion Gap 6 mmol/L (8-16); Aspartate Amino Transferase 25 U/L (17-59); Bilirubin,Total 0.3 mg/dL (0.2-1.3); Blood Urea Nitrogen 9 mg/dL (9-20); Calcium 9.2 mg/dL (8.4-10.2); Carbon Dioxide 27 mmol/L (22-30); Chloride 106 mmol/L (98-107); D Dimer 0.64 ug/mL (<0.48); Estimated CRCL calculation 82 ml/min; Estimated Glomerular Filt Rate > 60; Glucose 86 mg/dL (75-110); Potassium 3.9 mmol/L (3.4-5.0); Sodium 139 mmol/L (137-145)
[2020-11-30 20:44] LABS: NT Pro B Type Natriuretic Pept 2110 pg/mL (5-100)
[2020-11-30 20:47] LABS: Troponin I < 0.012 ng/mL (0.000-0.034)
[2020-11-30 21:12] LABS: Alveolar/Arterial O2 Gradient 89.9 mmHg; Base Excess ABG -1.5 mEq/l (+/-2.0); Device NASAL CANNULA; Fractional Inspired Oxygen 32 %; HCO3 ABG 22.5 mEq/l (22.0-26.0); Modified Allen's Test Pass; Oxygen Content ABG 11.4 %vol (16.0-22.0); Oxygen Saturation ABG 97.7 % (95.0-100.0); Oxyhemoglobin 95.9 % THb (90.0-100.0); PCO2 ABG 34.6 mmHg (35.0-45.0); PO2 ABG 97.8 mmHg (80.0-100.0); PO2 FiO2 Ratio Arterial Blood 3.06 %; Site Drawn RIGHT RADIAL; Total Hemoglobin 8.3 g/dL (12.0-18.0); pH ABG 7.431 (7.350-7.450)
--- NOTE | 2020-11-30 22:06 | PM.IMHP ---
H&P: HPI History of Present Illness Date/Time: 11/30/20 22:06 This is a 54-year-old male with past medical history significant for coronary artery disease, gastroesophagea reflux, dysphagia, recurrent aspiration pneumonia, COPD, chronic anemia. Patient presented to the emergency room due to feeling very dizzy upon standing for the last few days or so patient stated he had 1 melena episode yesterday he has been on Xarelto blood thinner for pulmonary embolism in 2o15 in and 2017. Patient follows up at [facility] for his gastroesophageal reflux disease and a concern for aspiration pneumonia secondary to reflux patient also with a barium swallow eval last February of 2020. Patient states that he has been having syncopal episodes at least 3 that he can recall in the past few days. Has been having orthopnea every time he lays flat in bed gets very short of breath dyspnea upon exertion dry cough no fevers no rigors no chills no change in sputum quality or production no nausea no vomiting no diarrhea no abdominal pain however he complains of retrosternal pain with radiation to the scapula and clavicular bilaterally. Preliminary workup was significant for low hemoglobin. A chest x-ray was significant also for diffuse lung infiltrates an ABG was unremarkable. Chief Complaint: Dizziness Review of Systems Constitutional: Constitutional: Denies chills, Denies fever(s), Denies headache(s) and Denies weakness Eyes: Eyes: Denies blurry vision ENT: Reports dizziness, Denies headache(s) and Denies neck pain Cardiovascular: Cardiovascular: Reports chest pain and Reports dyspnea Respiratory: Respiratory: Reports cough and Reports dyspnea Gastrointestinal: Gastrointestinal: Denies abdominal pain, Denies diarrhea, Denies nausea and Denies vomiting Genitourinary: Genitourinary: Denies hematuria and Denies dysuria Musculoskeletal: Musculoskeletal: Denies back pain and Denies neck pain Neurologic: Reports dizziness, Denies headache(s) and Denies weakness [facility] Past Medical History Medical History Chronic anemia Chronic back pain On long-term opioid therapy. Chronic cough Chronic obstructive pulmonary disease Chronic respiratory failure with hypoxia On 4 liters nasal cannula at nighttime. Congestive heart failure Coronary artery disease Gastroesophageal reflux disease History of pulmonary fibrosis Hyperlipidemia Hypertension Nocturnal hypoxemia Pulmonary embolism Recurrent pneumonia Tracheobronchomalacia determined by bronchoscopy Surgical History Surgical History History of back surgery x3. History of fasciotomy Right forearm. History of left heart catheterization History of Keith fundoplication History of percutaneous coronary intervention Cardiac stent x6. Family History Family History Father Diabetes mellitus Mother Hypertension Congestive heart failure Social History Social History Social History: Surrogate decision maker: Jenny Seth, spouse. Code status: Full code. Smoking status: Former smoker Alcohol intake: never Substance use: never Substance use type: does not use Additional living arrangements comments: Lives in [place] with his spouse. Gender identity (if verbalized by the patient): Male Meds Home Medications and Allergies Home Medications Medication Instructions Recorded Confirmed Type Xarelto 20 mg PO DAILY 02/27/20 02/27/20 History amitriptyline 150 mg PO HS 02/27/20 02/27/20 History amlodipine 5 mg PO DAILY 02/27/20 02/27/20 History aspirin 81 mg PO DAILY 02/27/20 02/27/20 History atorvastatin 40 mg PO DAILY 02/27/20 02/27/20 History cyclobenzaprine 10 mg PO TID 02/27/20 02/27/20 History fluoxetine 40 mg PO DAILY 02/27/20 02/27/20 History gabapentin 800 mg
[2020-11-30 22:11] VITALS: BP 157/66; PULSE 58; RESP 20; O2SAT 100
[2020-11-30 22:31] VITALS: BP 139/86; PULSE 59; RESP 16; O2SAT 100
[2020-11-30] MEDS: PANTOPRAZOLE SODIUM IV 40 MG VIAL IV PUSH (22:31)
[2020-11-30] MEDS: FUROSEMIDE INJ 40 MG/4 ML VIAL IV PUSH (22:31)
[2020-11-30 23:20] VITALS: BP 145/85; PULSE 55; RESP 20; TEMP 37.1; O2SAT 100; BMI 31.6
[2020-11-30 23:24] VITALS: BMI 31.4
--- NOTE | 2020-11-30 23:32 | ADMGEN ---
This patient, Moises Seth Jr., was admitted to [facility] Surg Room 322-01. Patient/family oriented to hospital policies and general routines including ID bracelet, bed and alarms, visiting hours, pain management, procedures, bathroom and other care routines, personal items, smoking policy, room service/diet, and visiting hours. Information on how to activate the Rapid Response Team has been discussed. Patient/Family are encouraged to report perceived risks to care and to ask questions if they do not understand what they are told or what they should do.
[2020-12-01] VITALS (19 sets, daily range): BP systolic 80–150; BP diastolic 45–88; PULSE 48–102; RESP 16–18; TEMP 36.2–36.9; O2SAT 86–100
[2020-12-01 01:20] LABS: Basophils Percent Auto 0.5 % (0.2-1.2); Eosinophils Absolute Auto 0.4 K/mm3 (0-0.3); Eosinophils Percent Auto 7.3 % (0-4.4); Hematocrit 27.7 % (42.0-52.0); Hemoglobin 8.4 g/dL (14.0-18.0); Immature Granulocyte Absolute 0.14 K/mm3 (0.00-0.031); Immature Granulocyte Percent A 2.5 % (0-0.5); Lymphocytes Absolute Auto 1.25 K/mm3 (0.9-3.2); Lymphocytes Percent Auto 22.3 % (18.3-44.2); Mean Corpuscular HGB Conc 30.3 g/dl (32-36); Mean Corpuscular Hemoglobin 22.5 pg (26-34); Mean Corpuscular Volume 74.1 fl (80-100); Mean Platelet Volume 9.7 fl (7.4-10.4); Monocytes Absolute Auto 0.4 K/mm3 (0.1-0.6); Monocytes Percent Auto 6.8 % (2.6-8.5); Neutrophils Absolute Auto 3.4 K/mm3 (1.3-6.7); Neutrophils Percent Auto 60.6 % (45.5-73.1); Nucleated Red Blood Cells Perc 0.7 % (0.0-0.2); Platelet Count Result 323 k/mm3 (150-375); Red Blood Count 3.74 M/mm3 (4.6-6.20); Red Cell Distribution Width 16.2 % (11.5-14.5); White Blood Count 5.6 K/mm3 (4.5-10.0)
[2020-12-01 01:29] LABS: INR 1.4; Prothrombin Time 17.3 Seconds (11.1-14.7)
[2020-12-01 01:30] LABS: Partial Thromboplastin Time 35.8 SECONDS (22.3-36.8)
[2020-12-01 01:36] LABS: Transferrin 267 mg/dL (206-381)
[2020-12-01 01:42] LABS: Troponin I < 0.012 ng/mL (0.000-0.034)
[2020-12-01 01:50] LABS: Iron 22 ug/dL (49-181)
[2020-12-01 01:59] LABS: Percent Iron Saturation 6 % (20-50)
[2020-12-01 04:29] LABS: Alanine Aminotransferase 7 U/L (4-50); Albumin Level 3.8 g/dL (3.5-5.1); Alkaline Phosphatase 107 U/L (38-126); Anion Gap 6 mmol/L (8-16); Aspartate Amino Transferase 27 U/L (17-59); Bilirubin,Total 0.4 mg/dL (0.2-1.3); Blood Urea Nitrogen 9 mg/dL (9-20); Calcium 9.4 mg/dL (8.4-10.2); Carbon Dioxide 30 mmol/L (22-30); Chloride 103 mmol/L (98-107); Estimated CRCL calculation 77 ml/min; Estimated Glomerular Filt Rate > 60; Glucose 80 mg/dL (75-110); Sodium 139 mmol/L (137-145)
--- NOTE | 2020-12-01 08:28 | PM.IMPN ---
Progress Note: A&P Assessment and Plan (1) Syncope and collapse: Code(s): R55 - Syncope and collapse Status: Acute Assessment and Plan: Likely secondary to hypovolemia secondary to acute on chronic blood loss anemia vs acute coronary syndrome with chest pain, pain radiating to bilateral shoulders prior to syncopal episode vs arrhythmia. Patient had similar symptoms back in July [address] [facility] and had a stent placed at that time. Obtaining records, but stent card shows stent placed to RCA. 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 Will hold his blood thinner at this time due to GI bleed Orthostatics were positive with a drop in systolic BP from 138 to 103. Consulting Cardiology for further evaluation of chest pain and syncope Will order Troponin PT/OT will be ordered for monitoring and therapy Continue monitoring. (2) Chest pain: Code(s): R07.9 - Chest pain, unspecified Status: Acute Assessment and Plan: Reports similar chest pain with prior PCIs in the past and Chest pain prior to syncopal episodes. See syncope. Consulting cardology. (3) Acute and chronic respiratory failure ([id number]): Code(s): J96.20 - Acute and chronic respiratory failure, unspecified whether with hypoxia or hypercapnia Status: Acute Assessment and Plan: Patient chronically on nocturnal oxygen at home, 4L. Now, on 2 L via nasal cannula. Could be secondary to underlying aspiration infection verses CHF exacerbation versus COPD exacerbation Ordered breathing treatments due to underlying COPD as well as possible infection Pulmonology consulted and their input is appreciated. Continue monitoring. Continue wean oxygen as tolerated. Will perform home oxygen evaluation prior to discharge. (4) Acute on chronic diastolic CHF (congestive heart failure): Code(s): I50.33 - Acute on chronic diastolic (congestive) heart failure Status: Acute Assessment and Plan: The patient with symptoms of orthopnea, dyspnea on exertion, elevated BNP and chest x-ray showing possible edema Echocardiogram ordered and pending Patient giving diuretics emergency room with stabilization of renal function. Will continue IV Lasix 20 mg BID Cardiology has been consulted due to chest pain Continue monitoring intake and output, weights daily, renal function daily (5) Acute on chronic anemia: Code(s): D64.9 - Anemia, unspecified Status: Acute Assessment and Plan: Likely secondary to hypovolemia as patient with low hemoglobin. Hgb 02/2020 was 12, Hgb on arrival is 8.4. Iron panel suggest iron deficiency anemia. Patient is on anticoagulation due to history of pulmonary embolism in the past. Anticoagulation will be held, SCDs ordered. Will give IV Venofer for 3 days (#1) PPI increased to 40 mg twice daily Will give 1 unit of packed red blood cells since the patient is still symptomatic this morning. Patient is NPO at this time with a GI consultation and going to have EGD this afternoon. Will continue to monitor H&H q6hrs. (6) Recurrent pneumonia: Code(s): J18.9 - Pneumonia, unspecified organism Status: Acute Assessment and Plan: Suspicious for aspiration pneumonia due to gastroesophageal reflux disease. Patient has had a large workup done at [facility]'s GI specialist. Patient was seen here February 2020 with aspiration pneumonia and had evaluation with our tailing hand. Suspicious for aspiration pneumonia due to gastroesophageal reflux disease. Chest x-ray and CT chest cannot exclude diffuse infiltrates from infection verses edema Patient's vitals have been stable, afebrile, normal white blood cell count and di
[2020-12-01] MEDS: PANTOPRAZOLE SODIUM IV 40 MG VIAL IV PUSH ×2 (10:09→20:38)
[2020-12-01] MEDS: FUROSEMIDE INJ 40 MG/4 ML VIAL 20 MG IV PUSH ×2 (10:12→18:02)
[2020-12-01 11:15] LABS: Troponin I 0.012 ng/mL (0.000-0.034)
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
--- NOTE | 2020-12-01 13:00 | PCSTNOTE ---
Patient was not seen this date as nurse, Sima, reported that patient would be undergoing an EGD within the next hour. She requested Bedside Swallow Evaluation wait until tomorrow.
[2020-12-01] MEDS: GABAPENTIN 400 MG CAPSULE 800 MG PO ×3 (14:00→21:43)
--- NOTE | 2020-12-01 15:17 | PM.CNCAR ---
Assessment and Plan Assessment and plan (1) Chest pain: Code(s): R07.9 - Chest pain, unspecified Status: Acute Assessment and Plan: Seems to be atypical, no troponin changes no EKG changes, continue to monitor will get echocardiogram to evaluate current left ventricular systolic function (2) Acute and chronic respiratory failure (hjzkj-[id number]-[id number]): Code(s): J96.20 - Acute and chronic respiratory failure, unspecified whether with hypoxia or hypercapnia Status: Acute (3) Anemia: Qualifiers: Anemia type: unspecified type Qualified Code(s): D64.9 - Anemia, unspecified Code(s): D64.9 - Anemia, unspecified Status: Acute (4) Syncope and collapse: Code(s): R55 - Syncope and collapse Status: Acute Assessment and Plan: Seems to be due to orthostatic hypertension, which is likely due to anemia in view of GI bleed. Agree with hydration, follow-up orthostatic vital signs (5) Hypertension: Code(s): I10 - Essential (primary) hypertension Status: Acute (6) Hyperlipidemia: Code(s): E78.5 - Hyperlipidemia, unspecified Status: Acute (7) GI bleed: Code(s): K92.2 - Gastrointestinal hemorrhage, unspecified Status: Acute Assessment and Plan: Agree with blood transfusion continue to monitor for inputs and outputs, he is okay from cardiac standpoint to go for GI procedures when needed Additional Plan Thank you for allowing me to participate in this patient's care, I will be following up with you. Please do not hesitate to call me for any other inquiry History of Present Illness History of Present Illness Consult date/time: 12/01/20 15:17 54 YEARS OLD GENTLEMAN WITH HISTORY OF HYPERTENSION, HISTORY OF CORONARY DISEASE STATUS POST RECENT RCA STENT, CAME TO THE HOSPITAL BECAUSE OF dizziness and syncope. He had 3 episodes of syncope, mostly with upon standing up and orthostatic changes, he apparently had GI bleed with elizabeth stool, he is currently taking Xarelto because of history of PE in the past. Noted for the past few weeks significant episode of dizziness lightheadedness and mostly orthostatic dizziness. Noted to have significant anemia, and currently a getting ready to get blood transfusion getting GI workup. He was seen by our service last year at that time he was in with chest pain at that time underwent cardiac catheterization revealed no significant coronary disease but however later on few months after that he had chest pain with non-STEMI and then had the new disease in the RCA for which she underwent stent placement. Since admission he feels well he still gets occasional tightness in the chest but seems to be left-sided and occasional left shoulder pain and occasional dizziness he has no palpitation and no orthopnea, no leg swelling. According to him is taking his medications regularly Reason For Visit: dizziness, anemia Review of Systems Constitutional: Constitutional: Reports difficulty sleeping, Reports excessive sweating and Reports fatigue Cardiovascular: Cardiovascular: Reports as per HPI Respiratory: Respiratory: Reports as per HPI [facility] Past Medical History Medical History Chronic anemia Chronic back pain On long-term opioid therapy. Chronic cough Chronic obstructive pulmonary disease Chronic respiratory failure with hypoxia On 4 liters nasal cannula at nighttime. Congestive heart failure Coronary artery disease Gastroesophageal reflux disease History of pulmonary fibrosis Hyperlipidemia Hypertension Nocturnal hypoxemia Pulmonary embolism Recurrent pneumonia Tracheobronchomalacia determined by bronchoscopy Surgical History Surgical History History of back surgery x3. History of fasciotomy Right forearm. History of left heart catheterization History of Keith fundoplication History of percutaneou
[2020-12-01] MEDS: IPRATROPIUM BR 0.02% INH SOLN 0.5 MG/2.5 ML VIAL INHALATION ×2 (16:23→20:56)
[2020-12-01] MEDS: ALBUTEROL SULFATE NEB 2.5 MG/0.5 ML INH INHALATION ×2 (16:24→20:56)
--- NOTE | 2020-12-01 16:24 | WPDGICN ---
Assessment and Plan Assessment and plan (1) GI bleed: Code(s): K92.2 - Gastrointestinal hemorrhage, unspecified Status: Acute Assessment and Plan: will proceed with egd, recent colonoscopy negative if egd negative then will need SB capsule endoscopy and probably refer to hematology for anemia work up (2) Acute on chronic anemia: Code(s): D64.9 - Anemia, unspecified Status: Acute Assessment and Plan: monitor hb, this is in setting of xarelto (3) Acute and chronic respiratory failure (ienqj-kx-tafltrc): Code(s): J96.20 - Acute and chronic respiratory failure, unspecified whether with hypoxia or hypercapnia Status: Acute Assessment and Plan: copd and cad s/p stents cardiology and pulmonary on board covid test pending (he is on isolation) (4) Acute on chronic diastolic CHF (congestive heart failure): Code(s): I50.33 - Acute on chronic diastolic (congestive) heart failure Status: Acute (5) Syncope and collapse: Code(s): R55 - Syncope and collapse Status: Acute Assessment and Plan: probably multifactorial from heart disease but also noted worsening anemia egd tomorrow (6) Lung infiltrate: Code(s): R91.8 - Other nonspecific abnormal finding of lung field Status: Acute GI Consult Note Consult date/time: 12/01/20 16:24 Reason for consult: melena HPI: Moises Seth is a 54 year old male with history of coronary artery disease, GERD, COPD on home oxygen and recurrent pneumonia, chronic anemia with last hospitalization 07/2020 at [facility] in [facility] because worsening anemia hb 7 that required blood transfusion, GI evaluation with unremarkable EGD (only previous Keith with loose wrap- Niseen about 10 years ago but still symptomatic gerd) and colonoscopy to explain bleeding, only hemorrhoids. During that hospitalization also had cardiac cath because [facility]stemi had PCI/DANY to prox RCA (reviewed records), still using xarelto. He is here with progressive fatigue, also had 3 episodes of syncope, mostly with upon standing up and orthostatic changes. He says that has been feeling dizzy for few weeks, also worsening GERD symptoms despite using protonix in the morning and omeprazole at bedtime. Hb low again 7.9, inr 1.4. BUN normal. CTA chest reviewed, showed moderate amount of bilateral groundglass opacities with interlobular septal thickening and lymphadenopathy. Cardiomegaly. No pulmonary emboli. Troponins negative. He was evaluated by cardiology and pulmonary. Review of Systems Constitutional: Constitutional: Reports fatigue Eyes: Eyes: Reports no additional eye complaints ENT: Reports Normal hearing present Cardiovascular: Cardiovascular: Reports lightheadedness Respiratory: Respiratory: Reports dyspnea on exertion Gastrointestinal: Gastrointestinal: Denies abdominal pain and Reports heartburn Genitourinary: Genitourinary: Denies dysuria Musculoskeletal: Musculoskeletal: Denies neck pain Integumentary/Breasts: Skin/Breast: Denies dry skin Neurologic: Comments: syncope Psychiatric: Psychiatric: Reports no additional psychiatric complaints PMFSH Past Medical History Medical History Chronic anemia Chronic back pain On long-term opioid therapy. Chronic cough Chronic obstructive pulmonary disease Chronic respiratory failure with hypoxia On 4 liters nasal cannula at nighttime. Congestive heart failure Coronary artery disease Gastroesophageal reflux disease History of pulmonary fibrosis Hyperlipidemia Hypertension Nocturnal hypoxemia Pulmonary embolism Recurrent pneumonia Tracheobronchomalacia determined by bronchoscopy Surgical History Surgical History History of back surgery x3. History of fasciotomy Right forearm. History of left heart catheterization History of Keith fundoplication History of p
[2020-12-01 16:27] LABS: Troponin I < 0.012 ng/mL (0.000-0.034)
[2020-12-01 17:04] LABS: SARS-CoV-2 RNA PCR Negative
[2020-12-01 17:18] LABS: Hematocrit 28.4 % (42.0-52.0); Hemoglobin 8.8 g/dL (14.0-18.0)
[2020-12-01] MEDS: AMITRIPTYLINE HCL 25 MG TABLET 150 MG PO (20:37)
[2020-12-01] MEDS: DOXEPIN HCL 25 MG CAPSULE 100 MG PO (20:37)
[2020-12-02] VITALS (24 sets, daily range): BP systolic 81–126; BP diastolic 7–73; PULSE 51–80; RESP 16–20; TEMP 36.3–36.9; O2SAT 91–98
--- NOTE | 2020-12-02 | ECHO_ITS ---
Patient Info Name: Moises Seth Age: 54 years : 1965 Gender: Male Ht: 68 in Wt: 206 lbs BSA: 2.15 m2 HR: 60 bpm BP: 101 / 61 mmHg Technical Quality: Fair Exam Date: 12/02/2020 10:07 AM Exam Location: [facility] Pulmonary Exam Room: 322 Patient Status: Inpatient Admit Date: 11/30/2020 Staff Ordering Physician: Dionicio Crow MD Database Administration Project Manager: CHET Attending Provider: Holly Becerra PA-C Exam Type: CA echo doppler color flow Study Info Indications - CHEST PAIN Complete two-dimensional, color flow and Doppler transthoracic echocardiogram is performed. Summary 1. Complete two-dimensional, color flow and Doppler transthoracic echocardiogram is performed. 2. Technically difficult study with limited views. 3. Left ventricular chamber dimension is normal. 4. Grade I diastolic dysfunction of the left ventricle (impaired relaxation pattern). 5. Left ventricular systolic function is normal with an estimated ejection fraction of 5055.0 %. Left Ventricle Left ventricular chamber dimension is normal. Left ventricular wall thickness is normal. Left ventricular systolic function is normal with an estimated ejection fraction of 5055.0 %. Presence of apical HK. Grade I diastolic dysfunction of the left ventricle (impaired relaxation pattern). Right Ventricle Right ventricle Empty are normal. Left Atria Left atrial chamber dimension is normal. Right Atria Right atrial chamber dimension is normal. Aortic Valve Aortic valve is not well visualized. Pulmonic Valve Pulmonary valve is not well visualized. Mitral Valve Mitral valve is structurally and functionally normal to two-dimensional, color flow Doppler and Doppler interrogation. Tricuspid Valve The tricuspid valve is structurally and functionally normal by two-dimensional, color flow Doppler and Doppler interrogation. Pericardium/Pleural Pericardium is normal in appearance with no evidence for significant pericardial effusion. Left Ventricular Outflow Tract Name Value Normal LVOT 2D LVOT Diameter 2.7 cm LVOT Doppler LVOT Peak Gradient 7 mmHg LVOT Mean Gradient 4 mmHg LVOT VTI 30 cm LVOT VTI/AV VTI Ratio 1.2 LVOT Stroke Volume 168 ml LVOT CO 30.0 l/min LVOT CI 14.0 l/min/m2 Pulmonic Valve Name Value Normal PV Doppler PV Peak Gradient 5 mmHg Mitral Valve Name Value Normal MV Doppler MV Decel [place]
[2020-12-02] MEDS: SODIUM CHLORIDE 0.9% IV 250 ML 30 ML IV CONT (01:03)
[2020-12-02] MEDS: SODIUM CHLORIDE 0.9% IV 500 ML IV CONT (04:35)
[2020-12-02 06:19] LABS: Hematocrit 30.5 % (42.0-52.0); Hemoglobin 9.4 g/dL (14.0-18.0); Mean Corpuscular HGB Conc 30.8 g/dl (32-36); Mean Corpuscular Hemoglobin 23.2 pg (26-34); Mean Corpuscular Volume 75.3 fl (80-100); Mean Platelet Volume 10.6 fl (7.4-10.4); Platelet Count Result 244 k/mm3 (150-375); Red Blood Count 4.05 M/mm3 (4.6-6.20); Red Cell Distribution Width 17.2 % (11.5-14.5); White Blood Count 4.8 K/mm3 (4.5-10.0)
[2020-12-02 06:33] LABS: Anion Gap 6 mmol/L (8-16); Blood Urea Nitrogen 11 mg/dL (9-20); Calcium 8.2 mg/dL (8.4-10.2); Carbon Dioxide 29 mmol/L (22-30); Chloride 104 mmol/L (98-107); Estimated CRCL calculation 77 ml/min; Estimated Glomerular Filt Rate > 60; Glucose 84 mg/dL (75-110); Potassium 3.5 mmol/L (3.4-5.0); Sodium 139 mmol/L (137-145)
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
[2020-12-02] MEDS: ALBUTEROL SULFATE NEB 2.5 MG/0.5 ML INH INHALATION ×4 (08:43→19:45)
[2020-12-02] MEDS: IPRATROPIUM BR 0.02% INH SOLN 0.5 MG/2.5 ML VIAL INHALATION ×4 (08:43→19:45)
[2020-12-02] MEDS: PANTOPRAZOLE SODIUM IV 40 MG VIAL IV PUSH (09:15)
[2020-12-02] MEDS: FUROSEMIDE INJ 40 MG/4 ML VIAL 20 MG IV PUSH (09:17)
[2020-12-02] MEDS: MORPHINE SULFATE (*CRX) 30 MG TABCR PO ×3 (09:23→20:30)
[2020-12-02] MEDS: GABAPENTIN 400 MG CAPSULE 800 MG PO ×3 (09:24→17:34)
--- NOTE | 2020-12-02 09:58 | PM.IMPN ---
Progress Note: A&P Assessment and Plan (1) Syncope and collapse: Code(s): R55 - Syncope and collapse Status: Acute Assessment and Plan: Likely secondary to hypovolemia secondary to acute on chronic blood loss anemia vs acute coronary syndrome with chest pain, pain radiating to bilateral shoulders prior to syncopal episode vs arrhythmia. Patient had similar symptoms back in July 2020 at [facility] and had a stent placed at that time. Obtaining records, but stent card shows stent placed to RCA. Monitor on telemetry shows Sinus bradycardia with HR at 52 bpm, few alarms showing no arrhythmia or abnormality. He was given 1 Unit of PRBCs yesterday with improvement of H&H to 9.4/30.5%, but still having lightheadedness/near syncopal episodes. Monitor H&H. Will hold his blood thinner at this time due to GI bleed Orthostatics were positive with a drop in systolic BP from 138 to 103, and patient was symptomatic. Consulting Cardiology for further evaluation of chest pain and syncope- they are rechecking Echocardiogram. Normal troponins. No EKG changes. Believes syncope due to orthostatic hypotension and from acute anemia. Will hold diuresis at this time due to orthostatics and improvement of breathing with diuresis. Will order Reji Villarreal PT/OT will be ordered for monitoring and therapy Continue monitoring. Hospitalization from 08/20/20 at [facility] showed he presented with syncopal episodes, CP, SOB for 1-2 weeks. CXR showed left sided PNA, WBC 19,000. Hgb was 6.7 and was transfused 1Unit with improvement. Troponins were elevated at that time 0.036>0.05. BNP was 595. Echo from 08/20/20 showed EF 50-55%, borderline LVH. Cardiac Cath preformed 08/24/[address] Marbella Herrera showing two vessel CAD, successful PCI/DANY to prox RCA. Continue ASA 81 mg daily and Plavix for 3 months. EGD on 08/21/[address] Moris Modi was unremarkable but noted to have Keith Fundoplication and wrap appeared loose. Colonoscopy 08/21/20 showed nonbleeding external and internal hemorrhoids. Xarelto had been restarted upon discharge along with Iron supplementation and Reglan 10 mg QID. (2) Chest pain: Code(s): R07.9 - Chest pain, unspecified Status: Acute Assessment and Plan: Reports similar chest pain with prior PCIs in the past and Chest pain prior to syncopal episodes. Denies any CP at this time. Had recent cath 07/2020 with PCI placement. Cardiology consulted and following and appreciate recommendations. (3) Acute and chronic respiratory failure (bzvos-ot-khamctq): Code(s): J96.20 - Acute and chronic respiratory failure, unspecified whether with hypoxia or hypercapnia Status: Acute Assessment and Plan: Patient chronically on nocturnal oxygen at home, 4L. Could be secondary to underlying aspiration infection verses CHF exacerbation versus COPD exacerbation Ordered breathing treatments due to underlying COPD as well as possible infection. Now, on 2 L via nasal cannula with O2 at 97%, will wean as tolerated. Patient having expiratory wheezing today, talked with Dr. Angela Hutchins who recommended started Budesonide 0.5 mg Q12hrs and increasing Duonebs to Q4HRT. Continue monitoring. Continue wean oxygen as tolerated. Will perform home oxygen evaluation prior to discharge. Pulmonology consulted and their input is appreciated. (4) Acute on chronic diastolic CHF (congestive heart failure): Code(s): I50.33 - Acute on chronic diastolic (congestive) heart failure Status: Acute Assessment and Plan: The patient with symptoms of orthopnea, dyspnea on exertion, elevated BNP and chest x-ray showing possible edema Echocardiogram ordered and pending Patient was given IV Lasix 20 mg BID and received dose
[2020-12-02] MEDS: LACTATED RINGERS 1,000 ML 150 ML IV CONT (11:11)
--- NOTE | 2020-12-02 11:26 | WPDANESEPPF ---
Anes - Initial Pre Proc Eval Procedure: Operation Date: 12/02/20 12:00 Proposed Procedures p Esophagogastroduodenoscopy - Harry Cisneros MD Date/Time: 12/02/20 11:26 Surgeon: oHlly Becerra PA-C Pre Op Diagnosis: dizziness, anemia Patient Data Age: 54 Gender: M Height: 1.73 m Weight: 93.9 kg Last Vital Signs Temp 36.3 C L 12/02/20 10:56 Pulse 68 12/02/20 10:56 Resp 18 12/02/20 10:56 BP 115/72 12/02/20 10:56 Pulse Ox 96 12/02/20 10:56 Allergies Allergy/AdvReac Type Severity Reaction Status Date / Time lisinopril Allergy Mild Anaphylactic Verified 12/02/20 11:06 Shock warfarin [From Coumadin] Allergy Other Verified 12/02/20 11:06 Home Medications Medication Instructions Recorded Confirmed Type Xarelto 20 mg PO DAILY 02/27/20 12/01/20 History amitriptyline 150 mg PO HS 02/27/20 11/30/20 History amlodipine 5 mg PO DAILY 02/27/20 11/30/20 History aspirin 81 mg PO DAILY 02/27/20 11/30/20 History atorvastatin [Lipitor] 40 mg PO DAILY 02/27/20 11/30/20 History gabapentin 800 mg PO TID 02/27/20 12/01/20 History iron 65 mg PO DAILY 02/27/20 11/30/20 History losartan 100 mg PO DAILY 02/27/20 12/01/20 History morphine 30 mg PO Q8H 02/27/20 12/01/20 History pantoprazole 40 mg PO BID 02/27/20 12/01/20 History benzonatate 200 mg PO Q8HR #30 cap 03/10/20 11/30/20 Rx furosemide 20 mg PO DAILY #30 tablet 03/10/20 11/30/20 Rx albuterol sulfate [Proventil HFA] 2 puff INHALATION PRN PRN 11/30/20 11/30/20 History guaifenesin [Mucus Relief ER] 600 mg PO PRN 11/30/20 11/30/20 History doxepin 100 mg PO HS 12/01/20 12/01/20 History Laboratory Tests 11/30/20 12/01/20 12/01/20 20:13 01:02 15:34 WBC RBC Hgb Hct MCV MCH MCHC RDW Plt Count MPV Sodium Potassium Chloride Carbon Dioxide Anion Gap BUN Creatinine Estim Creat Clear Calc Estimated GFR Glucose Calcium Troponin I < 0.012 ng/mL ng/mL (0.000-0.034) SARS-CoV-2 RNA (RT-PCR) Negative Blood Type AB Positive Antibody Screen Positive Antibody Identification Anti-c Antigen Identification TNP EAGLE, Poly Interpret Positive Crossmatch See Detail 12/01/20 12/02/20 12/02/20 17:13 06:00 06:00 WBC 4.8 K/mm3 K/mm3 (4.5-10.0) RBC 4.05 M/mm3 L M/mm3 (4.6-6.20) Hgb 8.8 g/dL L g/dL 9.4 g/dL L g/dL (14.0-18.0) (14.0-18.0) Hct 28.4 % L % 30.5 % L % (42.0-52.0) (42.0-52.0) MCV 75.3 fl L fl (80-100) MCH 23.2 pg L pg (26-34) MCHC 30.8 g/dl L g/dl (32-36) RDW 17.2 % H % (11.5-14.5) Plt Count 244 k/mm3 k/mm3 (150-375) MPV 10.6 fl H fl (7.4-10.4) Sodium 139 mmol/L mmol/L (137-145) Potassium 3.5 mmol/L mmol/L (3.4-5.0) Chloride 104 mmol/L mmol/L (98-107) Carbon Dioxide 29 mmol/L mmol/L (22-30) Anion Gap 6 mmol/L L mmol/L (8-16) BUN 11 mg/dL mg/dL (9-20) Creatinine 1.10 mg/dL mg/dL (0.7-1.3) Estim Creat Clear Calc 77 ml/min ml/min Estimated GFR > 60 (59 - ) Glucose 84 mg/dL mg/dL (75-110) Calcium 8.2 mg/dL L mg/dL (8.4-10.2) Troponin I SARS-CoV-2 RNA (RT-PCR) Blood Type Antibody Screen Antibody Identification Antigen Identification EAGLE, Poly Interpret Crossmatch Patient hx anesthesia problems: none Family hx anesthesia problems: none PMFSH Past Medical History Medical History Chronic anemia Chronic b
--- NOTE | 2020-12-02 13:07 | PC.NURSE ---
Returned from GI Lab. Report received from Nancy.
--- NOTE | 2020-12-02 14:15 | PCSTNOTE ---
Please refer to the Bedside Swallow Evaluation in the EMR. Please note, silent aspiration cannot be ruled out at bedside.
--- NOTE | 2020-12-02 15:42 | PM.PNCARD ---
Progress Note: A&P Assessment and Plan (1) Chest pain: Code(s): R07.9 - Chest pain, unspecified Status: Acute Assessment and Plan: Seems to be atypical, no troponin changes no EKG changes, continue to monitor will get echocardiogram to evaluate current left ventricular systolic function (2) Acute and chronic respiratory failure ([id number]-[id number]): Code(s): J96.20 - Acute and chronic respiratory failure, unspecified whether with hypoxia or hypercapnia Status: Acute (3) Anemia: Qualifiers: Anemia type: unspecified type Qualified Code(s): D64.9 - Anemia, unspecified Code(s): D64.9 - Anemia, unspecified Status: Acute (4) Syncope and collapse: Code(s): R55 - Syncope and collapse Status: Acute Assessment and Plan: Seems to be due to orthostatic hypertension, which is likely due to anemia in view of GI bleed. Agree with hydration, follow-up orthostatic vital signs, SO FAR NO CHANGES, AND HE FEELS WELL NOW (5) Hypertension: Code(s): I10 - Essential (primary) hypertension Status: Acute (6) Hyperlipidemia: Code(s): E78.5 - Hyperlipidemia, unspecified Status: Acute (7) GI bleed: Code(s): K92.2 - Gastrointestinal hemorrhage, unspecified Status: Acute Assessment and Plan: Agree with blood transfusion continue to monitor for inputs and outputs, he is okay from cardiac standpoint to go for GI procedures when needed Additional Plan SEEMS TO BE STABLE FROM CARDIAC STANDPOINT, OKAY TO DISCHARGE HOME TO FOLLOW UP IN OUR OFFICE IN 1 WEEK Subjective Date/time seen: 12/02/20 15:42 he feels okay today, he underwent EGD earlier Review of Systems Constitutional: Constitutional: Reports difficulty sleeping, Reports excessive sweating and Reports fatigue Cardiovascular: Cardiovascular: Reports as per HPI Respiratory: Respiratory: Reports as per HPI Endocrine: Endocrine: Reports excessive sweating and Reports fatigue Exam Narrative: Exam Narrative: Awake alert oriented x3 not in acute distress Neck is supple no obvious JVD, no carotid bruit Chest: Good air entry bilaterally, lungs are clear to auscultation and percussion bilaterally Cardiovascular: Regular rate and rhythm, 2/6 systolic murmur noted left sternal border Abdomen: Soft nontender bowel sounds positive Extremities: No edema has good pulses distally bilaterally Objective Data Vital Signs Vital Signs: Vital Signs - 24 hr 12/01/20 16:00 12/01/20 16:24 12/01/20 16:40 Temperature 36.3 C L Pulse Rate 63 63 69 Respiratory Rate 16 16 16 Blood Pressure 150/82 H Pulse Oximetry 100 96 12/01/20 20:00 12/01/20 20:05 12/01/20 20:10 Temperature 36.2 C L Pulse Rate 88 76 102 H Respiratory Rate 18 Blood Pressure 111/69 105/60 80/45 L Pulse Oximetry 96 12/01/20 20:57 12/01/20 20:59 12/01/20 21:07 Temperature Pulse Rate 67 68 Respiratory Rate 16 16 Blood Pressure Pulse Oximetry 94 12/01/20 22:24 12/02/20 00:00 12/02/20 01:35 Temperature 36.6 C Pulse Rate 74 65 64 Respiratory Rate 16 Blood Pressure 91/65 L Pulse Oximetry 97 95 12/02/20 01:54 12/02/20 02:54 12/02/20 03:54 Temperature 36.9 C 36.7 C 36.7 C Pulse Rate 65 56 L 56 L Respiratory Rate 16 16 16 Blood Pressure 91/48 L 118/64 81/51 L Pulse Oximetry 91 96 91 12/02/20 04:00 12/02/20 04:32 12/02/20 06:00 Temperature 36.6 C 36.3 C L Pulse Rate 55 L 58 L 51 L Respiratory Rate 16 16 Blood Pressure 116/65 101/61 Pulse Oximetry 98 91 12/02/20 08:03 12/02/20 08:44 12/02/20 08:54 Temperature 36.3 C L Pulse Rate 53 L 54 L 58 L Respiratory Rate 18 16 16 Blood Pressure 121/7 L Pulse Oximetry 94 95 12/02/20 10:56 12/02/20 12:25 12/02/20 12:35 Temperature 36.3 C L Pulse Rate 68 62 58 L Respiratory Rate 18 18 18 Blood Pressure 115/72 89/47 L 87/48 L Pulse Oximetry 96 92 91 12/02/20 12:44 12/02/20 13:16 12/02/20 13:20 Temperat
[2020-12-02] MEDS: BUDESONIDE RESPULE NEB 0.5 MG/2 ML AMP INHALATION (19:45)
[2020-12-02] MEDS: AMITRIPTYLINE HCL 25 MG TABLET 150 MG PO (20:31)
[2020-12-02] MEDS: DOXEPIN HCL 25 MG CAPSULE 100 MG PO (20:31)
[2020-12-02] MEDS: PANTOPRAZOLE 40 MG TABLET PO (20:31)
[2020-12-03] VITALS (18 sets, daily range): BP systolic 115–153; BP diastolic 62–78; PULSE 51–87; RESP 14–20; TEMP 36.5–36.9; O2SAT 94–97
[2020-12-03] MEDS: MORPHINE SULFATE (*CRX) 30 MG TABCR PO ×3 (05:39→21:56)
[2020-12-03 07:12] LABS: Hematocrit 31.5 % (42.0-52.0); Hemoglobin 9.6 g/dL (14.0-18.0); Mean Corpuscular HGB Conc 30.5 g/dl (32-36); Mean Corpuscular Hemoglobin 22.8 pg (26-34); Mean Corpuscular Volume 74.8 fl (80-100); Mean Platelet Volume 9.9 fl (7.4-10.4); Platelet Count Result 324 k/mm3 (150-375); Red Blood Count 4.21 M/mm3 (4.6-6.20)
--- NOTE | 2020-12-03 07:39 | PM.PNPUL ---
Progress Note: A&P Assessment and Plan (1) Lung infiltrate: Code(s): R91.8 - Other nonspecific abnormal finding of lung field Status: Acute Assessment and Plan: 12/01 Patient with dyspnea on exertion, chronic phlegm production, chronic cough with a history of tracheal malacia who was recommended to get a stent in 2018 and at that time he refused. currently patient is on 2 L nasal cannula saturations 93-94%. His arterial blood gas does not show hypercarbic respiratory failure. Currently patient has diffuse interstitial and alveolar infiltrates with interlobular septal thickening and some lymphadenopathy. At this time will treat for possible aspiration pneumonia with Zosyn. It should be noted the patient has no white count and no change in his cough or phlegm production but he has had multiple episodes of syncope and could have aspirated. Will follow blood cultures. SARS test negative. He does not have PE on CTA from 11/30. LE dopplers negative for DVT. Additional etiologies for patient's symptoms include ILD, anemia and fluid overload and patient is undergoing evaluation by GI for possible UGI bleed and being diuresed per his hospitalist and Cardiology teams. Patient carries a diagnosis of tracheal malacia diagnosed 3 years ago by where bronchoscopy and at that time he was recommended to have a stent placed. Patient was scared by this procedure and did not have the stent placed. CTA on 11/30 does not delvalle tracheal abnormalities. He has not followed up with the general road foreman to his perform this bronchoscopy which he should do in the future. 12/02 Patient states his breathing, cough and phlegm are back to normal, WBC 4.8, afebrile, CXR stable diffuse infiltrates, cultures negative. Day #3 zosyn. Continue for now. On albuterol, ipratroprium nebs Q 4. Added inhaled steroids for persistent coughing and possible COPD exacerbation. 12/03 Cough persists despite triple inhalers and zosyn day 4 today. States cough is same as usual, unable to walk with dizzyness. No SOB at rest. Will give trial of steroids (solumedrol 40 Q 6 and reassess in morning). Add azithromycin today for atypical coverage. Repeat CXR in morning. (2) Daytime hypersomnia: Code(s): G47.10 - Hypersomnia, unspecified Status: Acute Assessment and Plan: 12/01 Patient had a sleep study about 15 years ago and he was told his saturations decreased into the 80's. He does not remember anything else regarding treatment or CPAP. Currently he snores, has witnessed sleep apnea events by his , wakes up frequently at night. He has minimal daytime hypersomnia and no morning head aches. Patient is maintained on 4 L oxygen at night and his primary is trying to arrange for an outpatient sleep study. 12/02 Patient had ovenright oximetry on 4 L NC and average saturations 94%, lowest saturation 81%, time spent with sats <=88% 39 minutes (10% monitored time, oxygen desaturation index 7.7/hr, AHI 5.9/hr. The tracing demonstrates multiple spike like desaturation events throughout night. I watched patient sleep on 2 L NC for 15 minutes. No snoring on his back at 30%. Approximately every 1.0 to 1.5 minutes he would have a 15-20 second apnea event without desaturations. There was no grunt at the end of the event and there were no chest wall movements during this apnea event. Occasionally he would have some muscle twitches during these events. He then would have normal respirations until next event. This was not Dimas-Maaya breathing. Patient may have ANTONIETA but I am also concerned about central apneas and therefore will not emperically start CPAP as this can worsen central process. In an attempt to better oxygenate patient while awaiting his outpatient sleep study I will place on 6 L at night and repeat apnea link with overnight oximetry. Will check thyroid function. 12/03 Patient had an overnight oximetry on 6 L nasal cannula at that demonstrated average saturation of 94%gertrudis
[2020-12-03 07:54] LABS: Free T4 Free Thyroxine 1.14 ng/mL (0.78-2.19)
--- NOTE | 2020-12-03 08:01 | PM.PNCARD ---
Progress Note: A&P Assessment and Plan (1) Chest pain: Code(s): R07.9 - Chest pain, unspecified Status: Acute Assessment and Plan: Seems to be atypical, no troponin changes no EKG changes, continue to monitor will get echocardiogram to evaluate current left ventricular systolic function (2) Acute and chronic respiratory failure ([id number]): Code(s): J96.20 - Acute and chronic respiratory failure, unspecified whether with hypoxia or hypercapnia Status: Acute (3) Anemia: Qualifiers: Anemia type: unspecified type Qualified Code(s): D64.9 - Anemia, unspecified Code(s): D64.9 - Anemia, unspecified Status: Acute (4) Syncope and collapse: Code(s): R55 - Syncope and collapse Status: Acute Assessment and Plan: Seems to be due to orthostatic hypertension, which is likely due to anemia in view of GI bleed. Agree with hydration, follow-up orthostatic vital signs, SO FAR NO CHANGES, AND HE FEELS WELL NOW (5) Hypertension: Code(s): I10 - Essential (primary) hypertension Status: Acute (6) Hyperlipidemia: Code(s): E78.5 - Hyperlipidemia, unspecified Status: Acute (7) GI bleed: Code(s): K92.2 - Gastrointestinal hemorrhage, unspecified Status: Acute Assessment and Plan: Agree with blood transfusion continue to monitor for inputs and outputs, he is okay from cardiac standpoint to go for GI procedures when needed (8) Orthostatic hypotension: Code(s): I95.1 - Orthostatic hypotension Status: Acute Assessment and Plan: Agree with hydration now given 1 L of fluid, he is not on any blood pressure medications but will consider adding midodrine if he still has significant orthostatic changes upon standing after given IV fluid Additional Plan SEEMS TO BE STABLE FROM CARDIAC STANDPOINT, OKAY TO DISCHARGE HOME TO FOLLOW UP IN OUR OFFICE IN 1 WEEK Subjective Date/time seen: 12/03/20 08:01 Feels better today, had 1 episode of lightheadedness seems to be more of orthostatic hypotension, no chest pain Exam Narrative: Exam Narrative: Awake alert oriented x3 not in acute distress Neck is supple no obvious JVD, no carotid bruit Chest: Good air entry bilaterally, lungs are clear to auscultation and percussion bilaterally Cardiovascular: Regular rate and rhythm, 2/6 systolic murmur noted left sternal border Abdomen: Soft nontender bowel sounds positive Extremities: No edema has good pulses distally bilaterally Objective Data Vital Signs Vital Signs: Vital Signs - 24 hr 12/02/20 08:03 12/02/20 08:44 12/02/20 08:54 Temperature 36.3 C L Pulse Rate 53 L 54 L 58 L Respiratory Rate 18 16 16 Blood Pressure 121/7 L Pulse Oximetry 94 95 12/02/20 10:56 12/02/20 12:25 12/02/20 12:35 Temperature 36.3 C L Pulse Rate 68 62 58 L Respiratory Rate 18 18 18 Blood Pressure 115/72 89/47 L 87/48 L Pulse Oximetry 96 92 91 12/02/20 12:44 12/02/20 13:16 12/02/20 13:20 Temperature Pulse Rate 58 L 64 Respiratory Rate 18 18 Blood Pressure 92/49 L Pulse Oximetry 91 94 12/02/20 14:00 12/02/20 15:50 12/02/20 15:59 Temperature 36.6 C Pulse Rate 66 58 L 67 Respiratory Rate 18 18 18 Blood Pressure 112/65 Pulse Oximetry 91 92 12/02/20 16:00 12/02/20 19:46 12/02/20 20:00 Temperature Pulse Rate 80 66 80 Respiratory Rate 20 Blood Pressure Pulse Oximetry 94 94 12/02/20 21:51 12/03/20 00:00 12/03/20 04:00 Temperature 36.8 C Pulse Rate 70 64 61 Respiratory Rate 18 Blood Pressure 126/73 Pulse Oximetry 94 12/03/20 05:32 Temperature 36.8 C Pulse Rate 57 L Respiratory Rate 18 Blood Pressure 115/62 Pulse Oximetry 94 Intake/Output Intake/Output: Intake & Output 11/30/20 12/01/20 12/02/20 12/03/20 23:59 23:59 23:59 23:59 Intake Total 50 7404 205 600 Output Total 3200 1600 700 Balance 50 -1105 455 -100 Meds/Results Medications: Active Medications
[2020-12-03] MEDS: SODIUM CHLORIDE 0.9% IV 1,000 ML 999 ML IV CONT (08:14)
[2020-12-03] MEDS: GABAPENTIN 400 MG CAPSULE 800 MG PO ×3 (08:16→18:11)
[2020-12-03] MEDS: PANTOPRAZOLE 40 MG TABLET PO ×2 (08:16→20:47)
--- NOTE | 2020-12-03 08:29 | WPDANESPN ---
Anes - Prog Note Post-Op Date/Time: 12/03/20 08:29 Cardiovascular status: normal Respiratory status: normal Airway patency: baseline Post-Op hydration status: normal Vital Signs: Last Vital Signs Temp 98.3 F 12/03/20 05:32 Pulse 57 L 12/03/20 05:32 Resp 18 12/03/20 05:32 BP 115/62 12/03/20 05:32 Pulse Ox 94 12/03/20 05:32 Pain Score (VAS): 0 I/O: Intake & Output 12/02/20 12/03/20 12/03/20 23:59 07:59 15:59 Intake Total 490 600 Output Total 800 700 Balance -310 -100 Laboratory Tests 12/03/20 06:31 12/02/20 06:00 12/03/20 12/03/20 06:31 06:31 WBC 6.0 RBC 4.21 L Hgb 9.6 L Hct 31.5 L MCV 74.8 L MCH 22.8 L MCHC 30.5 L RDW 17.0 H Plt Count 324 MPV 9.9 Free T4 1.14 Post-procedural complaints: none Patient Feedback: Patient satisfied with anesthetic care.
[2020-12-03] MEDS: ALBUTEROL SULFATE NEB 2.5 MG/0.5 ML INH INHALATION ×4 (09:08→23:39)
[2020-12-03] MEDS: IPRATROPIUM BR 0.02% INH SOLN 0.5 MG/2.5 ML VIAL INHALATION ×4 (09:08→23:39)
[2020-12-03] MEDS: BUDESONIDE RESPULE NEB 0.5 MG/2 ML AMP INHALATION ×2 (09:09→19:52)
[2020-12-03 10:49] LABS: Anion Gap 8 mmol/L (8-16); Blood Urea Nitrogen 9 mg/dL (9-20); Calcium 9.1 mg/dL (8.4-10.2); Carbon Dioxide 27 mmol/L (22-30); Chloride 104 mmol/L (98-107); Estimated CRCL calculation 77 ml/min; Estimated Glomerular Filt Rate > 60; Glucose 91 mg/dL (75-110); Potassium 3.7 mmol/L (3.4-5.0); Sodium 139 mmol/L (137-145)
[2020-12-03] MEDS: methylPREDNISolone SOD SUCC 40 MG VIAL IV PUSH ×3 (11:27→18:11)
--- NOTE | 2020-12-03 14:06 | PM.IMPN ---
Progress Note: A&P Assessment and Plan (1) Syncope and collapse: Code(s): R55 - Syncope and collapse Status: Acute Assessment and Plan: Likely secondary to hypovolemia secondary to acute on chronic blood loss anemia vs acute coronary syndrome with chest pain, pain radiating to bilateral shoulders prior to syncopal episode vs arrhythmia. Patient had similar symptoms back in July 2020 at [facility] and had a stent placed at that time. Obtaining records, but stent card shows stent placed to RCA. Monitor on telemetry shows Sinus bradycardia with HR at 52 bpm, few alarms showing no arrhythmia or abnormality. He was given 1 Unit of PRBCs 12/01/20 with improvement of H&H to 9.6/31.5%. Monitor H&H. Will hold his blood thinner at this time due to GI bleed Orthostatics were positive and still having lightheadedness/near syncopal episodes. He was given 1 Unit of NS Fluids 12/03/20 with improvement of blood pressure, but he has not walked around to see if its helped with his lightheadedness. Consulting Cardiology for further evaluation of chest pain and syncope- they are rechecking Echocardiogram pending. Normal troponins. No EKG changes. Believes syncope due to orthostatic hypotension and from acute anemia vs hypovolemia from dehydration. His Bp medications have been held and Cardiology will consider Midodrine if necessary. Continue Reji Franco PT/OT will be ordered for monitoring and therapy Continue monitoring. Hospitalization from 08/20/20 at [facility] showed he presented with syncopal episodes, CP, SOB for 1-2 weeks. CXR showed left sided PNA, WBC 19,000. Hgb was 6.7 and was transfused 1Unit with improvement. Troponins were elevated at that time 0.036>0.05. BNP was 595. Echo from 08/20/20 showed EF 50-55%, borderline LVH. Cardiac Cath preformed 08/24/[address] Marbella Herrera showing two vessel CAD, successful PCI/DANY to prox RCA. Continue ASA 81 mg daily and Plavix for 3 months. EGD on 08/21/[address] Moris Modi was unremarkable but noted to have Keith Fundoplication and wrap appeared loose. Colonoscopy 08/21/20 showed nonbleeding external and internal hemorrhoids. Xarelto had been restarted upon discharge along with Iron supplementation and Reglan 10 mg QID. (2) Chest pain: Code(s): R07.9 - Chest pain, unspecified Status: Acute Assessment and Plan: Reports similar chest pain with prior PCIs in the past and Chest pain prior to syncopal episodes. Normal troponins. No EKG changes. Denies any CP at this time. Had recent cath 07/2020 with PCI placement. Cardiology consulted and following and appreciate recommendations. (3) Acute and chronic respiratory failure ([id number]): Code(s): J96.20 - Acute and chronic respiratory failure, unspecified whether with hypoxia or hypercapnia Status: Acute Assessment and Plan: Patient chronically on nocturnal oxygen at home, 4L, but now on 2L at [place]. Could be secondary to underlying aspiration infection verses CHF exacerbation versus COPD exacerbation Pulmonology recommends continuing Duonebs to Q4HRT, Budesonide 0.5 mg Q12hrs, Adding Azithromycin for atypical coverage and Adding IV Solu-medrol 40 mg Q6hrs. Now, on 2 L via nasal cannula with O2 at 94%, will wean as tolerated. Continue monitoring. Continue wean oxygen as tolerated. Will perform home oxygen evaluation prior to discharge. Pulmonology consulted and their input is appreciated. (4) Acute on chronic diastolic CHF (congestive heart failure): Code(s): I50.33 - Acute on chronic diastolic (congestive) heart failure Status: Acute Assessment and Plan: The patient with symptoms of orthopnea, dyspnea on exertion, elevated BNP and chest x-ray showing possible edema Ech
--- NOTE | 2020-12-03 14:44 | PCRCNOTE ---
Window of time for administration has passed. See next scheduled administration.
--- NOTE | 2020-12-03 15:51 | WPDGIPROGNO ---
Progress Note: A&P Assessment and Plan (1) Acute on chronic anemia: Code(s): D64.9 - Anemia, unspecified Status: Acute Assessment and Plan: will need SB capsule endoscopy as outpatient egd negative and he had colonoscopy few months ago consult hematology (2) Acute exacerbation of chronic obstructive pulmonary disease: Code(s): J44.1 - Chronic obstructive pulmonary disease with (acute) exacerbation Status: Acute Assessment and Plan: pulmonary on board (3) Orthostatic hypotension: Code(s): I95.1 - Orthostatic hypotension Status: Acute (4) Syncope and collapse: Code(s): R55 - Syncope and collapse Status: Acute (5) Gastroesophageal reflux disease: Code(s): K21.9 - Gastro-esophageal reflux disease without esophagitis Status: Acute Assessment and Plan: on ppi bid loose wrap of previous germán found in egd Subjective Date/time seen: 12/03/20 15:51 Interval history: still feeling lightheaded, no changes. Review of Systems Review of Systems: All systems reviewed & are unremarkable except as noted in HPI and below Exam Const: General: comfortable HENMT: General nose exam: Normal nares present Eyes: General: appearance normal, both eyes and all related structures Neck: Neck: supple Resp: Auscultation: diminished lung sounds Cardio: Rate: regular rate GI: Inspection: non-distended GI Palp: Yes Soft to palpation and No Tenderness to palpation present (GI) Auscultation: normal bowel sounds Skin: General skin exam: no erythema Other: pale Neuro: Speech: normal speech Extrem: General: normal to inspection Psych: Mental Status: mental status grossly normal Objective Data Vital Signs Vital Signs: Vital Signs - 24 hr 12/02/20 15:59 12/02/20 16:00 12/02/20 19:46 Temperature Pulse Rate 67 80 66 Respiratory Rate 18 20 Blood Pressure Pulse Oximetry 94 12/02/20 20:00 12/02/20 21:51 12/03/20 00:00 Temperature 98.3 F Pulse Rate 80 70 64 Respiratory Rate 18 Blood Pressure 126/73 Pulse Oximetry 94 94 12/03/20 04:00 12/03/20 05:32 12/03/20 09:09 Temperature 98.3 F Pulse Rate 61 57 L 51 L Respiratory Rate 18 20 Blood Pressure 115/62 Pulse Oximetry 94 95 12/03/20 09:21 12/03/20 14:00 12/03/20 14:45 Temperature 98.5 F Pulse Rate 60 69 69 Respiratory Rate 18 18 18 Blood Pressure 131/76 Pulse Oximetry 95 12/03/20 14:54 Temperature Pulse Rate 73 Respiratory Rate 18 Blood Pressure Pulse Oximetry Intake/Output Intake/Output: Intake & Output 11/30/20 12/01/20 12/02/20 12/03/20 23:59 23:59 23:59 23:59 Intake Total 50 2095 2055 1200 Output Total 3200 1600 700 Balance 50 -1105 455 500 Meds/Results Medications: Active Medications Generic Name Dose Route Start Last Admin Trade Name Freq PRN Reason Stop Dose Admin Albuterol 2 puff 12/01/20 07:39 Albuterol Sulfate (*Sp) Aerosol 1 Puff INHALATION PRN PRN Shortness Of Breath Albuterol 2.5 mg 12/02/20 12:00 12/03/20 14:45 Albuterol Sulfate Neb 2.5 Mg/0.5 Ml Inh INHALATION 2.5 mg Q4HRT ROLAND Administration Amitriptyline HCl 150 mg 12/01/20 21:00 12/02/20 20:31 Amitriptyline Hcl 25 Mg Tablet PO 150 mg HS ROLAND Administration Budesonide 0.5 mg 12/02/20 10:05 12/03/20 09:09 Budesonide Respule Neb 0.5 Mg/2 Ml Amp INHALATION 0.5 mg Q12HRT ROLAND Administration Doxepin HCl 100 mg 12/01/20 21:00 12/02/20 20:31 Doxepin Hcl 25 Mg Capsule PO 100 mg HS ROLAND Administration Gabapentin 800 mg 12/01/20 09:00 12/03/20 13:26 Gabapentin 400 Mg Capsule PO 800 mg TID ROLAND Administration Guaifenesin 600 mg 12/01/20 17:54 Guaifenesin 12 Hr 600 Mg Tabcr PO PRN PRN Congestion Piperacillin/Tazobactam/Dextrose 3.375 gm in 50 mls @ 100 mls/hr 11/30/20 22:50 12/03/20 13:26 Zosyn 3.375 Gm/D5w 50ml Pm IVPB 100 mls/hr Q6HR ROLAND Administration Iro
--- NOTE | 2020-12-03 16:23 | PDONCCN ---
HPI - Date of Consult Date/Time: 12/03/20 16:23 Requesting Physician: Holly Becerra PA-C Primary Care Provider: PHYSICIAN NOT ON STAFF - Consult Narrative Reason for consult: Iron deficiency anemia. Narrative: Moises Seth Jr. is a 54 year old male with history of coronary artery disease and had multiple stents placed in the past. He had to RCA stent placed in August of 2020. Prior to that in February he also had stent placed. He has been on Xarelto. She has been dealing with anemia for last 5 years duration since he was started on Xarelto. He denies any bleeding but does have some occasional dark stools. He is taking oral iron once a day. He has got admitted to the hospital with increasing complain of tiredness and fatigue. According to patient has been having these episodes of lightheadedness dizziness along with tiredness and fatigue every 3-4 months basis. Patient was also diagnosed to have pulmonary embolism in 2014 and in 2016. EGD was performed on December 02 that showed hiatal hernia. Patient also has history of gastroesophageal reflux disease and had fundoplication done in the past. Patient had colonoscopy done in the past. Review of Systems - Review of Systems All systems reviewed & are unremarkable except as noted in HPI and bel - Neurologic Reports system reviewed and no additional complaints, except as documented, Reports hearing normal, Denies headache(s), Denies weakness PMFSH Medical History: Medical History (Last Reviewed 12/01/20 @ 15:19 by Dionicio Crow MD) Chronic anemia Chronic back pain On long-term opioid therapy. Chronic cough Chronic obstructive pulmonary disease Chronic respiratory failure with hypoxia On 4 liters nasal cannula at nighttime. Congestive heart failure Coronary artery disease Gastroesophageal reflux disease History of pulmonary fibrosis Hyperlipidemia Hypertension Nocturnal hypoxemia Pulmonary embolism Recurrent pneumonia Tracheobronchomalacia determined by bronchoscopy Surgical History: Surgical History (Last Reviewed 12/01/20 @ 15:19 by Dionicio Crow MD) History of back surgery x3. History of fasciotomy Right forearm. History of left heart catheterization History of Keith fundoplication History of percutaneous coronary intervention Cardiac stent x6. Family History: Family History (Last Reviewed 11/30/20 @ 20:12 by Melodie Peterson MD) Father Diabetes mellitus Mother Hypertension Congestive heart failure - Social History Social History: Social History (Last Reviewed 11/30/20 @ 20:12 by Melodie Peterson MD) Gender Identity: Gender identity (if verbalized by the patient): Male Alcohol Use: Alcohol intake: former Substance Use: Substance use: never Substance use type: does not use Others: Spiritual care concerns: No Smoking Status: Smoking status: Former smoker Tobacco type: cigarettes Approximate Smoking End Date: 1999 Smoking Pack-years: Smoking packs per day: 0.50 Smoking cigarettes per day: 10.0 Meds Home Medications Medication Instructions Recorded Confirmed Type Xarelto 20 mg PO DAILY 02/27/20 12/01/20 History amitriptyline 150 mg PO HS 02/27/20 11/30/20 History amlodipine 5 mg PO DAILY 02/27/20 11/30/20 History aspirin 81 mg PO DAILY 02/27/20 11/30/20 History atorvastatin [Lipitor] 40 mg PO DAILY 02/27/20 11/30/20 History gabapentin 800 mg PO TID 02/27/20 12/01/20 History iron 65 mg PO DAILY 02/27/20 11/30/20 History losartan 100 mg PO DAILY 02/27/20 12/01/20 History morphine 30 mg PO Q8H 02/27/20 12/01/20 History pantoprazole 40 mg PO BID 02/27/20 12/01/20 History benzonatate 200 mg PO Q8HR #30 cap 03/10/20 11/30/20 Rx furosemide 20 mg PO DAILY #30 tablet 03/10/20 11/30/20 Rx albuterol sulfate [Proventil HFA] 2 puff INHALATION PRN PRN 11/30/20 11/30/20 History guaifenesin [Mucus Relief ER] 600 mg PO PRN 11/30/20 11/30/20 History doxepin 10
[2020-12-03] MEDS: DOXEPIN HCL 25 MG CAPSULE 100 MG PO (20:46)
[2020-12-03] MEDS: AMITRIPTYLINE HCL 25 MG TABLET 150 MG PO (20:46)
[2020-12-04] VITALS (19 sets, daily range): BP systolic 138–152; BP diastolic 72–96; PULSE 64–99; RESP 16–20; TEMP 36.3–36.6; O2SAT 92–99
[2020-12-04] MEDS: methylPREDNISolone SOD SUCC 40 MG VIAL IV PUSH ×4 (00:26→17:55)
[2020-12-04] MEDS: IPRATROPIUM BR 0.02% INH SOLN 0.5 MG/2.5 ML VIAL INHALATION ×5 (04:45→20:04)
[2020-12-04] MEDS: ALBUTEROL SULFATE NEB 2.5 MG/0.5 ML INH INHALATION ×5 (04:45→20:04)
[2020-12-04] MEDS: MORPHINE SULFATE (*CRX) 30 MG TABCR PO ×3 (06:09→20:44)
[2020-12-04] MEDS: BUDESONIDE RESPULE NEB 0.5 MG/2 ML AMP INHALATION ×2 (08:57→20:04)
[2020-12-04] MEDS: GABAPENTIN 400 MG CAPSULE 800 MG PO ×3 (09:25→17:55)
[2020-12-04] MEDS: PANTOPRAZOLE 40 MG TABLET PO ×2 (09:26→20:44)
--- NOTE | 2020-12-04 10:30 | PM.PNCARD ---
Progress Note: A&P Assessment and Plan (1) GI bleed: Code(s): K92.2 - Gastrointestinal hemorrhage, unspecified Status: Acute (2) Chest pain: Code(s): R07.9 - Chest pain, unspecified Status: Acute Assessment and Plan: Resolved Seems to be atypical, no troponin changes no EKG changes ECHO showed low normal LV systolic function (LVEF 50-55%) and diastolic dysfunction cont medical therapy. Restart ASA 81 QD when OK with GI service (3) Acute and chronic respiratory failure ([id number]): Code(s): J96.20 - Acute and chronic respiratory failure, unspecified whether with hypoxia or hypercapnia Status: Acute (4) Acute on chronic diastolic CHF (congestive heart failure): Code(s): I50.33 - Acute on chronic diastolic (congestive) heart failure Status: Acute Assessment and Plan: ECHO showed low normal LV systolic function (LVEF 50-55%) and diastolic dysfunction (5) Acute on chronic anemia: Code(s): D64.9 - Anemia, unspecified Status: Acute (6) History of pulmonary fibrosis: Code(s): Z87.09 - Personal history of other diseases of the respiratory system Status: Acute (7) Hypertension: Code(s): I10 - Essential (primary) hypertension Status: Acute (8) Hyperlipidemia: Code(s): E78.5 - Hyperlipidemia, unspecified Status: Acute (9) Orthostatic hypotension: Code(s): I95.1 - Orthostatic hypotension Status: Acute Assessment and Plan: resolved Seems that initially he had orthostatic hypotension, which is likely due to anemia in view of GI bleed. Agree with hydration (10) History of pulmonary embolism: Code(s): Z86.711 - Personal history of pulmonary embolism Status: Acute Assessment and Plan: Pt had few PEs in the past He was on Xarelto before current admission Given GI bleed could be a candidate for IVC filter placement Subjective Date/time seen: 12/04/20 Pt feels better today. No CP, SOB or palpitations. No LE edema States that had EGD now plans for colonoscopy. Getting blood transfusion. Pt was seen and examined, chart reviewed. Review of Systems Review of Systems: All systems reviewed & are unremarkable except as noted in HPI and below Constitutional: Constitutional: Reports as per HPI Eyes: Eyes: Reports as per HPI ENT: Reports system reviewed and no additional complaints, except as documented and Reports as per HPI Cardiovascular: Cardiovascular: Reports as per HPI Respiratory: Respiratory: Reports as per HPI Gastrointestinal: Gastrointestinal: Reports as per HPI Genitourinary: Genitourinary: Reports as per HPI Musculoskeletal: Musculoskeletal: Reports as per HPI Exam Const: General: no acute distress Nutritional Appearance: well nourished Orientation/consciousness: patient oriented x3 HENMT: Head: normal to inspection and atraumatic Ears: hearing grossly normal bilaterally Face and sinus: normal facial exam Eyes: General: appearance normal, both eyes and all related structures Pupils: Equal, round and reactive pupils present EOM: EOMs intact bilaterally Neck: Neck: supple Chest: Chest palpation & inspection: normal inspection of the chest Resp: Effort & Inspection: normal respiratory effort and no respiratory distress Auscultation: clear to auscultation bilaterally Cardio: Jugular venous distension: no JVD Rate: regular rate Heart sounds: S1 normal heart sound present, S2 normal heart sound present and no murmurs Peripheral pulses: Peripheral pulses 2+ throughout GI: GI Palp: No abdominal tenderness Auscultation: normal bowel sounds Skin: General skin exam: normal color Neuro: General: patient oriented x3 Cranial nerves: Yes Equal, round and reactive pupils present Extrem: General: normal to inspection and no clubbing, cyanosis or edema Objective Data Vital Signs Vital Signs: Vital Signs - 24 hr 12/03/20 12:00 12/03/20
--- NOTE | 2020-12-04 13:29 | WPDGIPROGNO ---
Progress Note: A&P Assessment and Plan (1) Acute on chronic anemia: Code(s): D64.9 - Anemia, unspecified Status: Acute Assessment and Plan: will need SB capsule endoscopy as outpatient egd negative x2 this year and had colonoscopy August this year negative (at another facility- reviewed)- no need to repeat now on iron iv hematology on board (2) Acute exacerbation of chronic obstructive pulmonary disease: Code(s): J44.1 - Chronic obstructive pulmonary disease with (acute) exacerbation Status: Acute Assessment and Plan: pulmonary on board (3) Orthostatic hypotension: Code(s): I95.1 - Orthostatic hypotension Status: Acute (4) Syncope and collapse: Code(s): R55 - Syncope and collapse Status: Acute (5) Gastroesophageal reflux disease: Code(s): K21.9 - Gastro-esophageal reflux disease without esophagitis Status: Acute Assessment and Plan: on ppi bid loose wrap of previous germán found in egd Subjective Date/time seen: 12/04/20 13:29 Interval history: no new changes, still no BM for days and would like laxative Review of Systems Review of Systems: All systems reviewed & are unremarkable except as noted in HPI and below Exam Const: General: comfortable HENMT: General nose exam: Normal nares present Eyes: General: appearance normal, both eyes and all related structures Neck: Neck: supple Resp: Auscultation: diminished lung sounds Cardio: Rate: regular rate GI: Inspection: non-distended GI Palp: Yes Soft to palpation and No Tenderness to palpation present (GI) Auscultation: normal bowel sounds Skin: General skin exam: no erythema Other: pale Neuro: Speech: normal speech Extrem: General: normal to inspection Psych: Mental Status: mental status grossly normal Objective Data Vital Signs Vital Signs: Vital Signs - 24 hr 12/03/20 14:00 12/03/20 14:45 12/03/20 14:54 Temperature 98.5 F Pulse Rate 69 69 73 Respiratory Rate 18 18 18 Blood Pressure 131/76 Pulse Oximetry 95 12/03/20 16:00 12/03/20 19:53 12/03/20 20:00 Temperature Pulse Rate 84 74 78 Respiratory Rate 14 Blood Pressure Pulse Oximetry 95 12/03/20 20:06 12/03/20 21:58 12/03/20 23:40 Temperature 97.7 F Pulse Rate 87 85 78 Respiratory Rate 14 20 16 Blood Pressure 153/78 H Pulse Oximetry 97 12/03/20 23:43 12/03/20 23:49 12/04/20 00:00 Temperature Pulse Rate 78 83 91 Respiratory Rate 18 Blood Pressure Pulse Oximetry 96 12/04/20 04:00 12/04/20 04:45 12/04/20 04:52 Temperature Pulse Rate 66 66 70 Respiratory Rate 16 18 Blood Pressure Pulse Oximetry 12/04/20 06:00 12/04/20 08:58 12/04/20 09:09 Temperature 97.8 F Pulse Rate 71 70 72 Respiratory Rate 20 18 18 Blood Pressure 145/72 H Pulse Oximetry 97 92 12/04/20 12:21 12/04/20 12:27 Temperature Pulse Rate 75 74 Respiratory Rate 18 18 Blood Pressure Pulse Oximetry Intake/Output Intake/Output: Intake & Output 12/01/20 12/02/20 12/03/20 12/04/20 23:59 23:59 23:59 23:59 Intake Total 2095 2055 2720 1255 Output Total 3200 1600 1950 3400 Balance -1105 455 770 -2145 Meds/Results Medications: Active Medications Generic Name Dose Route Start Last Admin Trade Name Freq PRN Reason Stop Dose Admin Albuterol 2 puff 12/01/20 07:39 Albuterol Sulfate (*Sp) Aerosol 1 Puff INHALATION PRN PRN Shortness Of Breath Albuterol 2.5 mg 12/02/20 12:00 12/04/20 12:19 Albuterol Sulfate Neb 2.5 Mg/0.5 Ml Inh INHALATION 2.5 mg Q4HRT ROLAND Administration Amitriptyline HCl 150 mg 12/01/20 21:00 12/03/20 20:46 Amitriptyline Hcl 25 Mg Tablet PO 150 mg HS ROLAND Administration Budesonide 0.5 mg 12/02/20 10:05 12/04/20 08:57 Budesonide Respule Neb 0.5 Mg/2 Ml Amp INHALATION 0.5 mg Q12HRT ROLAND Administration Doxepin HCl 100 mg 12/01/20 21:00 12/03/20 20:46 Doxepin Hcl 25 Mg Caps
--- NOTE | 2020-12-04 14:00 | PM.PNPUL ---
Progress Note: A&P Assessment and Plan (1) Atypical pneumonia: Code(s): J18.9 - Pneumonia, unspecified organism Status: Acute Assessment and Plan: This patient has atypical pneumonia with peripheral eosinophilia. the differential here is vast and include chronic eosinophilic pneumonia, drug induced eosinophilic pneumonia, atypical infections such as mycobacterial and fungal infections as well as coccidiomycosis, as well as other interstitial lung diseases. UIP and NSIP are very unlikely given the picture of the CT scan of the chest. This patient needs a bronchoscopy with BAL and transbronchial biopsies along with a cell count and differential. I have spoken to him about and he has agreed. If the diagnosis is not made with the bronchoscope then he will need a VATS lung biopsy to see and he has agreed to that as well. My plan is to do a bronchoscopy early in the week. I may hold his antibiotics and systemic steroids these may decreased are yield of making a diagnosis but may restart them after the bronchoscopy and biopsies. Subjective Date/time seen: 12/04/20 14:00 Interval history: The patient is doing well today. He still complains of cough with productive sputum but does not know the color. He denied any fever overnight. Shortness of breath has been unchanged. He is currently requiring between 0-2 L but his oxygenation has been maintaining well. All sputum and blood cultures are negative thus far. CT scan shows bilateral airspace and interstitial disease with some ground-glass opacities sparing the subpleural space. Review of Systems Review of Systems: All systems reviewed & are unremarkable except as noted in HPI and below Exam Const: General: no acute distress Nutritional Appearance: well nourished Orientation/consciousness: patient oriented x3 HENMT: Head: normal to inspection and atraumatic Ears: hearing grossly normal bilaterally Face and sinus: normal facial exam Eyes: General: appearance normal, both eyes and all related structures Pupils: Equal, round and reactive pupils present EOM: EOMs intact bilaterally Neck: Neck: trachea midline and supple Chest: Chest palpation & inspection: normal inspection of the chest Resp: Effort & Inspection: normal respiratory effort and no respiratory distress Auscultation: rhonchi, wheezes and diminished lung sounds Cardio: Jugular venous distension: no JVD Rate: regular rate Heart sounds: S1 normal heart sound present, S2 normal heart sound present and no murmurs Peripheral pulses: Peripheral pulses 2+ throughout GI: GI Palp: No abdominal tenderness Auscultation: normal bowel sounds Skin: General skin exam: normal color Neuro: General: patient oriented x3 Cranial nerves: Yes Equal, round and reactive pupils present Extrem: General: normal to inspection and no clubbing, cyanosis or edema Objective Data Vital Signs Vital Signs: Vital Signs - 24 hr 12/04/20 15:01 12/04/20 15:09 12/04/20 16:00 Temperature Pulse Rate 81 80 80 Respiratory Rate 18 18 Blood Pressure Pulse Oximetry 12/04/20 20:00 12/04/20 20:05 12/04/20 20:16 Temperature Pulse Rate 88 89 81 Respiratory Rate 18 18 Blood Pressure Pulse Oximetry 96 12/04/20 22:00 12/05/20 00:00 12/05/20 00:05 Temperature 36.3 C L Pulse Rate 99 78 74 Respiratory Rate 20 18 Blood Pressure 152/96 H Pulse Oximetry 95 12/05/20 00:24 12/05/20 04:00 12/05/20 04:10 Temperature Pulse Rate 72 69 66 Respiratory Rate 18 18 Blood Pressure Pulse Oximetry 12/05/20 04:21 12/05/20 06:00 12/05/20 07:55 Temperature 36.6 C Pulse Rate 70 73 67 Respiratory Rate 18 20 16 Blood Pressure 143/84 H Pulse Oximetry 97 12/05/20 08:00 12/05/20 08:06 12/05/20 12:00 Temperature Pulse Rate 62 62 68 Respiratory Rate 18 16 Blood Pressure Pulse Oximetry 100 12/05/20 12:46 12/05/20 12:55 12/05/20 13:50 Temperature 36.4 C L Pulse Rate
--- NOTE | 2020-12-04 15:55 | PM.IMPN ---
Progress Note: A&P Assessment and Plan (1) Acute and chronic respiratory failure ([id number]): Code(s): J96.20 - Acute and chronic respiratory failure, unspecified whether with hypoxia or hypercapnia Status: Acute Assessment and Plan: Patient chronically on nocturnal oxygen at home, 4L, but now on 2L at [place]. Could be secondary to underlying aspiration infection verses CHF exacerbation versus COPD exacerbation Pulmonology recommends continuing Duonebs to Q4HRT, Budesonide 0.5 mg Q12hrs, Azithromycin (12/03/20) for atypical coverage, IV Solu-medrol 40 mg Q6hrs. Repeat CXR 12/04/20 showed Persistent extensive bilateral pulmonary infiltrates, increased in the right lower lung since 12/02/2020 Now, on 2 L via nasal cannula with O2 at 99%, will wean as tolerated. Only needs 6L at night. Due to worsening changes on CXR Pulmonology concerned for atypical pneumonia and need for bronchoscopy next week. Continue monitoring. Continue wean oxygen as tolerated. Will perform home oxygen evaluation prior to discharge. Pulmonology consulted and their input is appreciated. (2) Syncope and collapse: Code(s): R55 - Syncope and collapse Status: Acute Assessment and Plan: Likely secondary to hypovolemia secondary to acute on chronic blood loss anemia vs acute coronary syndrome with chest pain, pain radiating to bilateral shoulders prior to syncopal episode vs arrhythmia. Patient had similar symptoms back in July 2020 at [facility] and had a stent placed at that time. Obtaining records, but stent card shows stent placed to RCA. Monitor on telemetry shows Sinus rhythm, HR 74 bpm, few alarms showing no arrhythmia or abnormality. He was given 1 Unit of PRBCs 12/01/20 with improvement of H&H to 9.6/31.5%. Monitor H&H. Will hold his blood thinner at this time due to GI bleed Orthostatics were positive and still having lightheadedness/near syncopal episodes. He was given 1 Liter of NS Fluids 12/03/20 with improvement of blood pressure, but he has not walked around to see if its helped with his lightheadedness. Consulting Cardiology for further evaluation of chest pain and syncope- they are rechecking Echocardiogram pending. Normal troponins. No EKG changes. Believes syncope due to orthostatic hypotension and from acute anemia vs hypovolemia from dehydration. His Bp medications have been held and Cardiology will consider Midodrine if necessary. Continue Reji Hoses PT/OT will be ordered for monitoring and therapy Continue monitoring. Hospitalization from 08/20/20 at [facility] showed he presented with syncopal episodes, CP, SOB for 1-2 weeks. CXR showed left sided PNA, WBC 19,000. Hgb was 6.7 and was transfused 1Unit with improvement. Troponins were elevated at that time 0.036>0.05. BNP was 595. Echo from 08/20/20 showed EF 50-55%, borderline LVH. Cardiac Cath preformed 08/24/[address] Marbella Herrera showing two vessel CAD, successful PCI/DANY to prox RCA. Continue ASA 81 mg daily and Plavix for 3 months. EGD on 08/21/[address] Moris Modi was unremarkable but noted to have Keith Fundoplication and wrap appeared loose. Colonoscopy 08/21/20 showed nonbleeding external and internal hemorrhoids. Xarelto had been restarted upon discharge along with Iron supplementation and Reglan 10 mg QID. (3) Chest pain: Code(s): R07.9 - Chest pain, unspecified Status: Acute Assessment and Plan: Reports similar chest pain with prior PCIs in the past and Chest pain prior to syncopal episodes. Normal troponins. No EKG changes. Denies any CP at this time. Had recent cath 07/2020 with PCI placement. Cardiology consulted and following and appreciate recommendations. (4) Acute on chronic diastolic CHF (congestive heart fail
[2020-12-04] MEDS: ACETAMINOPHEN 325 MG TABLET 650 MG PO (16:06)
[2020-12-04 16:44] LABS: Red Blood Cell Folate 846 ng/mL RBC (>280)
[2020-12-04] MEDS: ALPRAZolam (*CRX) 0.125 MG TABLET PO (17:20)
[2020-12-04] MEDS: AMITRIPTYLINE HCL 25 MG TABLET 150 MG PO (20:44)
[2020-12-04] MEDS: DOXEPIN HCL 25 MG CAPSULE 100 MG PO (20:44)
[2020-12-05] VITALS (19 sets, daily range): BP systolic 134–145; BP diastolic 70–85; PULSE 62–100; RESP 16–20; TEMP 36.4–36.9; O2SAT 94–100
[2020-12-05] MEDS: ALBUTEROL SULFATE NEB 2.5 MG/0.5 ML INH INHALATION ×6 (00:09→20:19)
[2020-12-05] MEDS: IPRATROPIUM BR 0.02% INH SOLN 0.5 MG/2.5 ML VIAL INHALATION ×6 (00:09→20:20)
[2020-12-05] MEDS: methylPREDNISolone SOD SUCC 40 MG VIAL IV PUSH ×2 (00:15→05:53)
[2020-12-05] MEDS: ACETAMINOPHEN 325 MG TABLET 650 MG PO (00:28)
[2020-12-05] MEDS: MORPHINE SULFATE (*CRX) 30 MG TABCR PO ×3 (05:53→21:56)
[2020-12-05 07:04] LABS: Basophils Percent Auto 0.1 % (0.2-1.2); Hematocrit 39.5 % (42.0-52.0); Hemoglobin 12.1 g/dL (14.0-18.0); Immature Granulocyte Absolute 0.21 K/mm3 (0.00-0.031); Immature Granulocyte Percent A 0.9 % (0-0.5); Immature Platelet Fraction Pct 5.4 % (0.9-11.2); Lymphocytes Absolute Auto 1.34 K/mm3 (0.9-3.2); Mean Corpuscular HGB Conc 30.6 g/dl (32-36); Mean Corpuscular Hemoglobin 24.2 pg (26-34); Mean Platelet Volume 10.5 fl (7.4-10.4); Monocytes Absolute Auto 0.2 K/mm3 (0.1-0.6); Monocytes Percent Auto 0.8 % (2.6-8.5); Neutrophils Absolute Auto 20.6 K/mm3 (1.3-6.7); Neutrophils Percent Auto 92.2 % (45.5-73.1); Platelet Count Result 380 k/mm3 (150-375); Red Cell Distribution Width 19.3 % (11.5-14.5); White Blood Count 22.4 K/mm3 (4.5-10.0)
[2020-12-05 07:19] LABS: Anion Gap 6 mmol/L (8-16); Blood Urea Nitrogen 13 mg/dL (9-20); Calcium 9.9 mg/dL (8.4-10.2); Carbon Dioxide 27 mmol/L (22-30); Chloride 107 mmol/L (98-107); Estimated CRCL calculation 84 ml/min; Estimated Glomerular Filt Rate > 60; Glucose 108 mg/dL (75-110); Magnesium 2.5 mg/dL (1.6-2.3); Sodium 140 mmol/L (137-145)
[2020-12-05] MEDS: BUDESONIDE RESPULE NEB 0.5 MG/2 ML AMP INHALATION ×2 (07:54→20:19)
--- NOTE | 2020-12-05 09:57 | PM.PNCARD ---
Progress Note: A&P Assessment and Plan (1) History of pulmonary embolism: Code(s): Z86.711 - Personal history of pulmonary embolism Status: Acute Assessment and Plan: Pt had few PEs in the past He was on Xarelto before current admission Given GI bleed could be a candidate for IVC filter placement (2) GI bleed: Code(s): K92.2 - Gastrointestinal hemorrhage, unspecified Status: Acute (3) Anemia: Qualifiers: Anemia type: unspecified type Qualified Code(s): D64.9 - Anemia, unspecified Code(s): D64.9 - Anemia, unspecified Status: Acute (4) Congestive heart failure: Code(s): I50.9 - Heart failure, unspecified Status: Acute Assessment and Plan: ECHO showed low normal LV systolic function (LVEF 50-55%) and diastolic dysfunction (5) Chest pain: Code(s): R07.9 - Chest pain, unspecified Status: Acute Assessment and Plan: Resolved Seems to be atypical, no troponin changes no EKG changes ECHO showed low normal LV systolic function (LVEF 50-55%) and diastolic dysfunction cont medical therapy. Restart ASA 81 QD when OK with GI service (6) History of pulmonary fibrosis: Code(s): Z87.09 - Personal history of other diseases of the respiratory system Status: Acute Assessment and Plan: plan to transfer to [facility] for lung biopsy Subjective Date/time seen: 12/05/20 Pt feels better today. No CP, SOB or palpitations. No LE edema States that pulmonary evaluated pt and plan is to transfer to [facility] for lung biopsy. Pt was seen and examined, chart reviewed. Review of Systems Review of Systems: All systems reviewed & are unremarkable except as noted in HPI and below Constitutional: Constitutional: Reports as per HPI Eyes: Eyes: Reports as per HPI ENT: Reports system reviewed and no additional complaints, except as documented and Reports as per HPI Cardiovascular: Cardiovascular: Reports as per HPI Respiratory: Respiratory: Reports as per HPI Gastrointestinal: Gastrointestinal: Reports as per HPI Genitourinary: Genitourinary: Reports as per HPI Musculoskeletal: Musculoskeletal: Reports as per HPI Exam Const: General: no acute distress Nutritional Appearance: well nourished Orientation/consciousness: patient oriented x3 HENMT: Head: normal to inspection and atraumatic Ears: hearing grossly normal bilaterally Face and sinus: normal facial exam Eyes: General: appearance normal, both eyes and all related structures Pupils: Equal, round and reactive pupils present EOM: EOMs intact bilaterally Neck: Neck: supple Chest: Chest palpation & inspection: normal inspection of the chest Resp: Effort & Inspection: normal respiratory effort and no respiratory distress Auscultation: clear to auscultation bilaterally Cardio: Jugular venous distension: no JVD Rate: regular rate Heart sounds: S1 normal heart sound present, S2 normal heart sound present and no murmurs Peripheral pulses: Peripheral pulses 2+ throughout GI: GI Palp: No abdominal tenderness Auscultation: normal bowel sounds Skin: General skin exam: normal color Neuro: General: patient oriented x3 Cranial nerves: Yes Equal, round and reactive pupils present Extrem: General: normal to inspection and no clubbing, cyanosis or edema Objective Data Vital Signs Vital Signs: Vital Signs - 24 hr 12/04/20 12:00 12/04/20 12:21 12/04/20 12:27 Temperature Pulse Rate 90 75 74 Respiratory Rate 18 18 Blood Pressure Pulse Oximetry 12/04/20 14:00 12/04/20 15:01 12/04/20 15:09 Temperature 36.6 C Pulse Rate 71 81 80 Respiratory Rate 20 18 18 Blood Pressure 138/72 Pulse Oximetry 99 12/04/20 16:00 12/04/20 20:00 12/04/20 20:05 Temperature Pulse Rate 80 88 89 Respiratory Rate 18 Blood Pressure Pulse Oximetry 96 12/04/20 20:16 12/04/20 22:00 12/05/20 00:00 Temperature 36.3 C L Pulse Rate 81 99 78 Respiratory R
[2020-12-05] MEDS: PANTOPRAZOLE 40 MG TABLET PO ×2 (10:13→21:56)
[2020-12-05] MEDS: GABAPENTIN 400 MG CAPSULE 800 MG PO ×3 (10:13→18:16)
[2020-12-05] MEDS: VENLAFAXINE HCL XR 75 MG CAP.ER.24H PO (10:14)
--- NOTE | 2020-12-05 12:16 | PM.IMPN ---
Progress Note: A&P Assessment and Plan (1) Acute and chronic respiratory failure ([id number]): Code(s): J96.20 - Acute and chronic respiratory failure, unspecified whether with hypoxia or hypercapnia Status: Acute Assessment and Plan: Patient chronically on nocturnal oxygen at home, 4L, but now on 2L at [place]. Could be secondary to underlying aspiration infection verses CHF exacerbation versus COPD exacerbation Pulmonology recommends continuing Duonebs to Q4HRT, Budesonide 0.5 mg Q12hrs, IV Zosyn Day #6, Azithromycin (12/03/20) for atypical coverage, IV Solu-medrol 40 mg Q6hrs. Repeat CXR 12/04/20 showed Persistent extensive bilateral pulmonary infiltrates, increased in the right lower lung since 12/02/2020 Now, on room air O2 at 99%, will wean as tolerated. Only needs 6L at night. Due to worsening changes on CXR Pulmonology concerned for atypical pneumonia and need for bronchoscopy in a few days. Continue monitoring. Continue wean oxygen as tolerated. Will perform home oxygen evaluation prior to discharge. Pulmonology consulted and their input is appreciated. (2) Syncope and collapse: Code(s): R55 - Syncope and collapse Status: Acute Assessment and Plan: Likely secondary to hypovolemia secondary to acute on chronic blood loss anemia vs acute coronary syndrome with chest pain, pain radiating to bilateral shoulders prior to syncopal episode vs arrhythmia. Patient had similar symptoms back in July [address] [facility] and had a stent placed at that time. Obtaining records, but stent card shows stent placed to RCA. Monitor on telemetry showed no acute arrhythmia, D/C Tele He was given 1 Unit of PRBCs 12/01/20 with improvement of H&H to 9.6/31.5%. Monitor H&H. Will hold his blood thinner at this time due to GI bleed Orthostatics were positive and still having lightheadedness/near syncopal episodes. He was given 1 Liter of NS Fluids 12/03/20 with improvement of blood pressure. Consulting Cardiology for further evaluation of chest pain and syncope- they are rechecked Echocardiogram showing Left ventricular chamber dimension is normal. Grade I diastolic dysfunction of the left ventricle (impaired relaxation pattern). Left ventricular systolic function is normal with an estimated ejection fraction of 50-55 %. Normal troponins. No EKG changes. Believes syncope due to orthostatic hypotension and from acute anemia vs hypovolemia from dehydration. His Bp medications have been held and Cardiology will consider Midodrine if necessary. Continue Reji Hoses PT/OT will be ordered for monitoring and therapy Continue monitoring. Hospitalization from 08/20/20 at [facility] showed he presented with syncopal episodes, CP, SOB for 1-2 weeks. CXR showed left sided PNA, WBC 19,000. Hgb was 6.7 and was transfused 1Unit with improvement. Troponins were elevated at that time 0.036>0.05. BNP was 595. Echo from 08/20/20 showed EF 50-55%, borderline LVH. Cardiac Cath preformed 08/24/[address] Marbella Herrera showing two vessel CAD, successful PCI/DANY to prox RCA. Continue ASA 81 mg daily and Plavix for 3 months. EGD on 08/21/[address] Moris Modi was unremarkable but noted to have Keith Fundoplication and wrap appeared loose. Colonoscopy 08/21/20 showed nonbleeding external and internal hemorrhoids. Xarelto had been restarted upon discharge along with Iron supplementation and Reglan 10 mg QID. (3) Chest pain: Code(s): R07.9 - Chest pain, unspecified Status: Acute Assessment and Plan: Reports similar chest pain with prior PCIs in the past and Chest pain prior to syncopal episodes. Normal troponins. No EKG changes. Denies any CP at this time. Had recent cath 07/2020 with PCI placement. Cardiology consulted and following and appreciate recommendations.
[2020-12-05] MEDS: ASCORBIC ACID 500 MG TABLET PO (13:39)
--- NOTE | 2020-12-05 14:07 | PM.PNPUL ---
Progress Note: A&P Assessment and Plan (1) Atypical pneumonia: Code(s): J18.9 - Pneumonia, unspecified organism Status: Acute Assessment and Plan: This patient has atypical pneumonia with peripheral eosinophilia. the differential here is vast and include chronic eosinophilic pneumonia, drug induced eosinophilic pneumonia, atypical infections such as mycobacterial and fungal infections as well as coccidiomycosis, as well as other interstitial lung diseases. UIP and NSIP are very unlikely given the picture of the CT scan of the chest. This patient needs a bronchoscopy with BAL and transbronchial biopsies along with a cell count and differential. I have spoken to him about and he has agreed. If the diagnosis is not made with the bronchoscope then he will need a VATS lung biopsy to see and he has agreed to that as well. My plan is to do a bronchoscopy early in the week. I may hold his antibiotics and systemic steroids these may decreased are yield of making a diagnosis but may restart them after the bronchoscopy and biopsies. Subjective Date/time seen: 12/05/20 14:07 Interval history: He feels slightly less short of breath today. His white count has been increased but this is likely due to initiation of systemic steroids a couple of days ago. Interestingly his peripheral eosinophilia has improved also likely due to systemic steroids being introduced. Review of Systems Review of Systems: All systems reviewed & are unremarkable except as noted in HPI and below Exam Const: General: no acute distress Nutritional Appearance: well nourished Orientation/consciousness: patient oriented x3 HENMT: Head: normal to inspection and atraumatic Ears: hearing grossly normal bilaterally Face and sinus: normal facial exam Eyes: General: appearance normal, both eyes and all related structures Pupils: Equal, round and reactive pupils present EOM: EOMs intact bilaterally Neck: Neck: trachea midline and supple Chest: Chest palpation & inspection: normal inspection of the chest Resp: Effort & Inspection: normal respiratory effort and no respiratory distress Auscultation: rhonchi, wheezes and diminished lung sounds Cardio: Jugular venous distension: no JVD Rate: regular rate Heart sounds: S1 normal heart sound present, S2 normal heart sound present and no murmurs Peripheral pulses: Peripheral pulses 2+ throughout GI: GI Palp: No abdominal tenderness Auscultation: normal bowel sounds Skin: General skin exam: normal color Neuro: General: patient oriented x3 Cranial nerves: Yes Equal, round and reactive pupils present Extrem: General: normal to inspection and no clubbing, cyanosis or edema Objective Data Vital Signs Vital Signs: Vital Signs - 24 hr 12/04/20 15:01 12/04/20 15:09 12/04/20 16:00 Temperature Pulse Rate 81 80 80 Respiratory Rate 18 18 Blood Pressure Pulse Oximetry 12/04/20 20:00 12/04/20 20:05 12/04/20 20:16 Temperature Pulse Rate 88 89 81 Respiratory Rate 18 18 Blood Pressure Pulse Oximetry 96 12/04/20 22:00 12/05/20 00:00 12/05/20 00:05 Temperature 36.3 C L Pulse Rate 99 78 74 Respiratory Rate 20 18 Blood Pressure 152/96 H Pulse Oximetry 95 12/05/20 00:24 12/05/20 04:00 12/05/20 04:10 Temperature Pulse Rate 72 69 66 Respiratory Rate 18 18 Blood Pressure Pulse Oximetry 12/05/20 04:21 12/05/20 06:00 12/05/20 07:55 Temperature 36.6 C Pulse Rate 70 73 67 Respiratory Rate 18 20 16 Blood Pressure 143/84 H Pulse Oximetry 97 12/05/20 08:00 12/05/20 08:06 12/05/20 12:00 Temperature Pulse Rate 62 62 68 Respiratory Rate 18 16 Blood Pressure Pulse Oximetry 100 12/05/20 12:46 12/05/20 12:55 12/05/20 13:50 Temperature 36.4 C L Pulse Rate 69 73 80 Respiratory Rate 18 16 18 Blood Pressure 145/85 H Pulse Oximetry 95 96 Intake/Output Intake/Output: Intake & Output 12/02/20 12/03/20 12/04/20
--- NOTE | 2020-12-05 15:05 | PM.CNGS ---
Assessment and Plan Assessment and plan (1) History of pulmonary embolism: Onset Date: Unknown Code(s): Z86.711 - Personal history of pulmonary embolism Status: Acute Assessment and Plan: This is the main reason for our consultation. Patient did not have any PE this time on his admission CTA. Apparently has had this in the past. Has been on Xarelto since 2012 because of a previous PE. He does not know of a specifically documented positive ultrasound of the deep venous veins in his legs however previous physicians have also discussed the possibility of placement of a IVC filter. I discussed the risks benefits possible complications including bleeding, infection, possible missed placement of the IVC filter. I explained that I do not do the procedure but no about it. we care of my partner will talk to about it more tomorrow and will try to coordinate with the other physicians in getting this place for him in the next couple days. Will want to do a prophylactic antibiotic at the time of his procedure. Antibiotics were stopped in order to try to get a reasonable biopsy when he gets bronchoscopy. Will try to coordinate with pulmonology regarding this. (2) History of traumatic brain injury: Onset Date: Unknown Code(s): Z87.820 - Personal history of traumatic brain injury Status: Acute Assessment and Plan: Patient apparently signs is own paperwork for procedures. (3) Atypical pneumonia: Onset Date: ~11/2020 Code(s): J18.9 - Pneumonia, unspecified organism Status: Acute Assessment and Plan: Patient has an unusual appearance to his pneumonia. Apparently bronchoscopy is planned to try to get brushings, washings, and cultures and possible biopsy to delineate what type of pneumonia he may be experiencing. Dr. Hardy is planning on stopping his steroids and antibiotics in order to try increase the likelihood that a good diagnosis can be made. (4) GI bleed: Code(s): K92.2 - Gastrointestinal hemorrhage, unspecified Status: Acute Assessment and Plan: Patient had upper GI endoscopy without finding a good explanation for where his GI bleeding is occurring from. Approximately Jul, earlier this year while in [place], [place] he had a colonoscopy which also did not show a good source of bleeding. Outpatient GI capsule endoscopy is being planned. Recommendations have been made to consider placing an IVC filter rather than going back on anticoagulation as he had had been before since 2012. (5) Anemia: Onset Date: ~11/30/20 Qualifiers: Anemia type: unspecified type Qualified Code(s): D64.9 - Anemia, unspecified Code(s): D64.9 - Anemia, unspecified Status: Acute Assessment and Plan: One can see the progression on his CBC's during this admission. He apparently did receive 1 or 2 units of PRBCs during this admission has also received some iron infusion. Please see hematology consultation by Dr. Mcfarland. In order to try to help this problem in prevent further GI bleed consider placement of a IVC filter see above. (6) History of pulmonary fibrosis: Code(s): Z87.09 - Personal history of other diseases of the respiratory system Status: Acute History of Present Illness Consult details Consult date: 12/05/20 Reason for consult: other (History of PE (unknown etiology)?) Requesting physician: Holly Becerra PA-C Narrative: This patient is a pleasant 54-year-old overweight/obese white male who has severe cardiac disease including previous 8 percutaneous stent placements the most recent 1 being in July of this year. He has a history of previous PE but as far as he knows he has never had positive ultrasounds proving clots in his calf veins. However, since 2013 he has been on Xarelto to prevent PE after developing 1 when he had an injury to his right forearm including a compartment syndrome. We were consult
[2020-12-05] MEDS: FERROUS SULFATE 324 MG TABLET PO (18:16)
[2020-12-05] MEDS: DOXEPIN HCL 25 MG CAPSULE 50 MG PO (21:54)
[2020-12-05] MEDS: DOXEPIN HCL 10 MG CAPSULE 50 MG PO (21:55)
[2020-12-05] MEDS: AMITRIPTYLINE HCL 25 MG TABLET 150 MG PO (21:56)
[2020-12-06] VITALS (22 sets, daily range): BP systolic 102–164; BP diastolic 62–93; PULSE 58–89; RESP 14–26; TEMP 36.2–37.1; O2SAT 90–99
[2020-12-06] MEDS: ALBUTEROL SULFATE NEB 2.5 MG/0.5 ML INH INHALATION ×5 (00:20→21:47)
[2020-12-06] MEDS: IPRATROPIUM BR 0.02% INH SOLN 0.5 MG/2.5 ML VIAL INHALATION ×5 (00:20→21:48)
[2020-12-06] MEDS: MORPHINE SULFATE (*CRX) 30 MG TABCR PO ×3 (06:19→21:31)
[2020-12-06 06:23] LABS: Hematocrit 35.8 % (42.0-52.0); Hemoglobin 10.8 g/dL (14.0-18.0); Mean Corpuscular HGB Conc 30.2 g/dl (32-36); Mean Corpuscular Hemoglobin 23.4 pg (26-34); Mean Corpuscular Volume 77.5 fl (80-100); Mean Platelet Volume 9.1 fl (7.4-10.4); Platelet Count Result 365 k/mm3 (150-375); Red Blood Count 4.62 M/mm3 (4.6-6.20); Red Cell Distribution Width 18.9 % (11.5-14.5); White Blood Count 10.6 K/mm3 (4.5-10.0)
[2020-12-06 06:44] LABS: Anion Gap 4 mmol/L (8-16); Blood Urea Nitrogen 15 mg/dL (9-20); Calcium 9.2 mg/dL (8.4-10.2); Carbon Dioxide 28 mmol/L (22-30); Chloride 107 mmol/L (98-107); Estimated CRCL calculation 84 ml/min; Estimated Glomerular Filt Rate > 60; Glucose 76 mg/dL (75-110); Sodium 139 mmol/L (137-145)
[2020-12-06] MEDS: BUDESONIDE RESPULE NEB 0.5 MG/2 ML AMP INHALATION ×2 (08:10→21:47)
[2020-12-06] MEDS: GABAPENTIN 400 MG CAPSULE 800 MG PO ×3 (08:39→18:03)
[2020-12-06] MEDS: VENLAFAXINE HCL XR 75 MG CAP.ER.24H PO (08:39)
[2020-12-06] MEDS: PANTOPRAZOLE 40 MG TABLET PO ×2 (08:40→21:31)
--- NOTE | 2020-12-06 10:26 | PM.PNGS ---
Progress Note: A&P Assessment and Plan (1) Iron deficiency anemia: Code(s): D50.9 - Iron deficiency anemia, unspecified Status: Acute Assessment and Plan: I reviewed the patient's hx and chart and also discussed with Dr. Mcfarland. He has hx of PE, last being 4 years ago and had been on anticoagulation since. He has dealt with anemia since being on anticoagulation, but no source of bleeding has been identified. I don't see that a stool hemoccult test has been done. EGD and recent colonoscopy has been negative. I don't see a prior tagged RBC scan, but GI is considering capsule endoscopy as an outpatient. Current CTA chest and LE u/s shows no active sign of DVT/PE. Patient says he has not had workup for hypercoagulable state in the past. He doesn't have an absolute indication for IVC filter at this time, but if he is found to be hypercoagulable and cannot continue care home anticoagulation, then IVC filter could be considered. Will await further workup by Hematology and Gastroenterology before proceeding with IVC filter. For now, would recommend typical VTE prophylaxis measures. (2) History of pulmonary embolism: Onset Date: Unknown Code(s): Z86.711 - Personal history of pulmonary embolism Status: Acute Subjective Subjective Date/Time Seen: 12/06/20 10:26 Interval history: No new concerns. Discussed hx around PE's and anemia. Exam Resp: Effort & Inspection: normal respiratory effort Auscultation: clear to auscultation bilaterally Cardio: Rate: regular rate Rhythm: regular rhythm Heart sounds: S1 normal heart sound present and S2 normal heart sound present GI: Inspection: normal to inspection and non-distended GI Palp: Yes Soft to palpation and No Tenderness to palpation present (GI) Objective Data Vital Signs Vital Signs: Vital Signs - 24 hr 12/05/20 12:00 12/05/20 12:46 12/05/20 12:55 Temperature Pulse Rate 68 69 73 Respiratory Rate 18 16 Blood Pressure Pulse Oximetry 95 12/05/20 13:50 12/05/20 16:51 12/05/20 17:02 Temperature 36.4 C L Pulse Rate 80 84 80 Respiratory Rate 18 16 16 Blood Pressure 145/85 H Pulse Oximetry 96 12/05/20 20:20 12/05/20 20:32 12/05/20 21:51 Temperature 36.9 C Pulse Rate 97 87 100 Respiratory Rate 16 16 20 Blood Pressure 134/70 Pulse Oximetry 94 95 12/06/20 00:15 12/06/20 00:34 12/06/20 00:55 Temperature Pulse Rate 89 72 Respiratory Rate 16 16 Blood Pressure Pulse Oximetry 91 98 12/06/20 04:42 12/06/20 04:52 12/06/20 06:00 Temperature 36.6 C Pulse Rate 58 L 62 60 Respiratory Rate 16 16 20 Blood Pressure 153/89 H Pulse Oximetry 96 12/06/20 08:12 12/06/20 08:20 Temperature Pulse Rate 69 69 Respiratory Rate 16 16 Blood Pressure Pulse Oximetry Intake/Output Intake/Output: Intake & Output 12/03/20 12/04/20 12/05/20 12/06/20 23:59 23:59 23:59 23:59 Intake Total 2720 3065 1430 200 Output Total 1950 4400 1600 600 Balance 614 -[phone] -371 -332 Meds/Results Medications: Active Medications Generic Name Dose Route Start Last Admin Trade Name Freq PRN Reason Stop Dose Admin Acetaminophen 650 mg 12/04/20 15:38 12/05/20 00:28 Acetaminophen 325 Mg Tablet PO 650 mg Q4H PRN Administration Headache Albuterol 2 puff 12/01/20 07:39 Albuterol Sulfate (*Sp) Aerosol 1 Puff INHALATION PRN PRN Shortness Of Breath Albuterol 2.5 mg 12/02/20 12:00 12/06/20 08:10 Albuterol Sulfate Neb 2.5 Mg/0.5 Ml Inh INHALATION 2.5 mg Q4HRT ROLAND Administration Amitriptyline HCl 150 mg 12/01/20 21:00 12/05/20 21:56 Amitriptyline Hcl 25 Mg Tablet PO 150 mg HS ROLAND Administration Ascorbic Acid 500 mg 12/05/20 12:40 12/05/20 13:39 Ascorbic Acid 500 Mg Tablet PO 500 mg DAILY ROLAND Administration Budesonide 0.5 mg 12/02/20 10:05 12/06/20 08:10 Budesonide Respule Neb 0.5 Mg/2 Ml Amp INHALATION 0.5 mg Q12HRT ROLAND Administration
--- NOTE | 2020-12-06 10:48 | PC.NURSE ---
To GI Lab per myriamer, IV 22 right forearm. IV flushes with no resistance and is saline locked. Report given to Gayle. Patient denies any pain or discomfort.
[2020-12-06] MEDS: LACTATED RINGERS 1,000 ML 150 ML IV CONT (11:07)
--- NOTE | 2020-12-06 11:20 | WPDANESEPPF ---
Anes - Initial Pre Proc Eval Procedure: Operation Date: 12/02/20 12:00 Proposed Procedures p Esophagogastroduodenoscopy - Harry Cisneros MD Operation Date: 12/06/20 14:00 Proposed Procedures p Flexible Bronchoscopy - Xavier Kathleen MD Date/Time: 12/06/20 11:20 Surgeon: Holly Becerra PA-C Pre Op Diagnosis: dizziness, anemia Patient Data Age: 54 Gender: M Height: 5 ft 8 in Weight: 94 kg Last Vital Signs Temp 97.5 F L 12/06/20 11:01 Pulse 78 12/06/20 11:01 Resp 20 12/06/20 11:01 BP 164/93 H 12/06/20 11:01 Pulse Ox 96 12/06/20 11:01 Allergies Allergy/AdvReac Type Severity Reaction Status Date / Time lisinopril Allergy Severe Anaphylactic Verified 12/06/20 11:14 Shock warfarin [From Coumadin] Allergy Other Verified 12/06/20 10:58 Home Medications Medication Instructions Recorded Confirmed Type Xarelto 20 mg PO DAILY 02/27/20 12/01/20 History amitriptyline 150 mg PO HS 02/27/20 11/30/20 History amlodipine 5 mg PO DAILY 02/27/20 11/30/20 History aspirin 81 mg PO DAILY 02/27/20 11/30/20 History atorvastatin [Lipitor] 40 mg PO DAILY 02/27/20 11/30/20 History gabapentin 800 mg PO TID 02/27/20 12/01/20 History iron 65 mg PO DAILY 02/27/20 11/30/20 History losartan 100 mg PO DAILY 02/27/20 12/01/20 History morphine 30 mg PO Q8H 02/27/20 12/01/20 History pantoprazole 40 mg PO BID 02/27/20 12/01/20 History benzonatate 200 mg PO Q8HR #30 cap 03/10/20 11/30/20 Rx furosemide 20 mg PO DAILY #30 tablet 03/10/20 11/30/20 Rx albuterol sulfate [Proventil HFA] 2 puff INHALATION PRN PRN 11/30/20 11/30/20 History guaifenesin [Mucus Relief ER] 600 mg PO PRN 11/30/20 11/30/20 History doxepin 100 mg PO HS 12/01/20 12/01/20 History venlafaxine 75 mg PO DAILY 12/04/20 12/04/20 History Laboratory Tests 12/05/20 12/05/20 12/06/20 17:07 17:07 06:11 WBC 10.6 K/mm3 H K/mm3 (4.5-10.0) RBC 4.62 M/mm3 M/mm3 (4.6-6.20) Hgb 10.8 g/dL L g/dL (14.0-18.0) Hct 35.8 % L % (42.0-52.0) MCV 77.5 fl L fl (80-100) MCH 23.4 pg L pg (26-34) MCHC 30.2 g/dl L g/dl (32-36) RDW 18.9 % H % (11.5-14.5) Plt Count 365 k/mm3 k/mm3 (150-375) MPV 9.1 fl fl (7.4-10.4) Sodium Potassium Chloride Carbon Dioxide Anion Gap BUN Creatinine Estim Creat Clear Calc Estimated GFR Glucose Calcium Anti-Cycl Citrul Peptide Pending CRISTOBAL Scrn Qualitative Pending CRISTOBAL [place] Interp Pending ANCA Screen Pending Myeloperoxidase Ab Pending Sm ([place]) Antibody Pending Glomerular Base Memb Ab Pending Blastomyces Antibody Pending Histoplasma Antibody Pending 12/06/20 06:11 WBC RBC Hgb Hct MCV MCH MCHC RDW Plt Count MPV Sodium 139 mmol/L mmol/L (137-145) Potassium 4.0 mmol/L mmol/L (3.4-5.0) Chloride 107 mmol/L mmol/L (98-107) Carbon Dioxide 28 mmol/L mmol/L (22-30) Anion Gap 4 mmol/L L mmol/L (8-16) BUN 15 mg/dL mg/dL (9-20) Creatinine 1.00 mg/dL mg/dL (0.7-1.3) Estim Creat Clear Calc 84 ml/min ml/min Estimated GFR > 60 (59 - ) Glucose 76 mg/dL mg/dL (75-110) Calcium 9.2 mg/dL mg/dL (8.4-10.2) Anti-Cycl Citrul Peptide CRISTOBAL Scrn Qualitative CRISTOBAL [place] Interp ANCA Screen Myeloperoxidase Ab Sm ([place]) Antibody Glomerular Base Memb Ab Blastomyces Antibody Histoplasma Antibody Patient hx anesthesia problems: none Family hx anesthesia problems: none PMFSH Past Medical History Medical History Chronic anemia Chronic back pain O
--- NOTE | 2020-12-06 13:11 | SUR.OPER ---
RIGHT MIDDLE LOBE AND RIGHT LOWER LOBE BAL'S WITH 120ML NS AND RETURN OF 25ML. ICED NS WASHINGS WITH 40ML INSTILLED. WASHINGS WITH 280ML NS INSTILLED.
[2020-12-06] MEDS: SODIUM CHLORIDE 0.9% IV 500 ML BAG IRRIGATION (13:18)
[2020-12-06 13:41] LABS: Albumin Level 3.4 g/dL (3.5-5.1)
--- NOTE | 2020-12-06 13:49 | PM.IMPN ---
Progress Note: A&P Assessment and Plan (1) Acute and chronic respiratory failure ([id number]): Code(s): J96.20 - Acute and chronic respiratory failure, unspecified whether with hypoxia or hypercapnia Status: Acute Assessment and Plan: Patient chronically on nocturnal oxygen at home, 4L, but now on 2L at [place]. Could be secondary to underlying aspiration infection verses CHF exacerbation versus COPD exacerbation Repeat CXR 12/04/20 showed Persistent extensive bilateral pulmonary infiltrates, increased in the right lower lung since 12/02/2020 Pulmonology recommends continuing Duonebs to Q4HRT, Budesonide 0.5 mg Q12hrs. Discontinued IV Zosyn and IV Solu-medrol 40 mg Q6hrs on 12/05/20. Discontinued PO Azithromycin 12/06/20. Bronchoscopy to be completed today by Dr. Niño for further evaluation Now, on room air O2 at 96% Needs 6L at night Continue monitoring. Continue wean oxygen as tolerated. Will perform home oxygen evaluation prior to discharge. Pulmonology consulted and their input is appreciated. (2) Syncope and collapse: Code(s): R55 - Syncope and collapse Status: Acute Assessment and Plan: Likely secondary to hypovolemia secondary to acute on chronic blood loss anemia vs acute coronary syndrome with chest pain, pain radiating to bilateral shoulders prior to syncopal episode vs arrhythmia. Patient had similar symptoms back in July 2020 at [facility] and had a stent placed at that time. Obtaining records, but stent card shows stent placed to RCA. Monitor on telemetry showed no acute arrhythmia, D/C Tele Orthostatics were positive could be from acute anemia and dehydration. He was given 1 Unit PRBCS and 1 Liter of NS Fluids 12/03/20 with improvement of blood pressure. Consulting Cardiology for further evaluation of chest pain and syncope- they are rechecked Echocardiogram showing Left ventricular chamber dimension is normal. Grade I diastolic dysfunction of the left ventricle (impaired relaxation pattern). Left ventricular systolic function is normal with an estimated ejection fraction of 50-55 %. Normal troponins. No EKG changes. Believes syncope due to orthostatic hypotension and from acute anemia vs hypovolemia from dehydration. His Bp medications have been held and Cardiology will consider Midodrine if necessary. Continue Reji Lujanava PT/OT will be ordered for monitoring and therapy Continue monitoring. Hospitalization from 08/20/20 at [facility] showed he presented with syncopal episodes, CP, SOB for 1-2 weeks. CXR showed left sided PNA, WBC 19,000. Hgb was 6.7 and was transfused 1Unit with improvement. Troponins were elevated at that time 0.036>0.05. BNP was 595. Echo from 08/20/20 showed EF 50-55%, borderline LVH. Cardiac Cath preformed 08/24/[address] Marbella Herrera showing two vessel CAD, successful PCI/DANY to prox RCA. Continue ASA 81 mg daily and Plavix for 3 months. EGD on 08/21/[address] Moris Modi was unremarkable but noted to have Keith Fundoplication and wrap appeared loose. Colonoscopy 08/21/20 showed nonbleeding external and internal hemorrhoids. Xarelto had been restarted upon discharge along with Iron supplementation and Reglan 10 mg QID. (3) Chest pain: Code(s): R07.9 - Chest pain, unspecified Status: Acute Assessment and Plan: Reports similar chest pain with prior PCIs in the past and Chest pain prior to syncopal episodes. Normal troponins. No EKG changes. Denies any CP at this time. Had recent cath 07/2020 with PCI placement. Cardiology consulted and following and appreciate recommendations. (4) Acute on chronic diastolic CHF (congestive heart failure): Code(s): I50.33 - Acute on chronic diastolic (congestive) heart failure Status:
[2020-12-06 14:53] LABS: Lymphocytes Bronchial Fluid 4 %; Macrophages Bronchial Fluid 10; Neutrophils Bronchial Fluid 63 %; Other Cells Bronchial Fluid 23 %
[2020-12-06 15:03] LABS: Appearance Bronchial Fluid Clear; Color Bronchial Fluid Colorless; Source Bronchial Fluid Bronchial Lavage
--- NOTE | 2020-12-06 15:12 | PM.PNPUL ---
Progress Note: A&P Assessment and Plan (1) Atypical pneumonia: Onset Date: ~11/2020 Code(s): J18.9 - Pneumonia, unspecified organism Status: Acute Assessment and Plan: This patient has atypical pneumonia with peripheral eosinophilia. the differential here is vast and include chronic eosinophilic pneumonia, drug induced eosinophilic pneumonia, atypical infections such as mycobacterial and fungal infections as well as coccidiomycosis, as well as other interstitial lung diseases. UIP and NSIP are very unlikely given the picture of the CT scan of the chest. He will undergo bronchoscopy with BAL and transbronchial biopsies along with a cell count and differential today. I have spoken to him about and he has agreed. If the diagnosis is not made with the bronchoscope then he will need a VATS lung biopsy to see and he has agreed to that as well. My plan is to do a bronchoscopy early in the week. I may hold his antibiotics and systemic steroids these may decreased are yield of making a diagnosis but may restart them after the bronchoscopy and biopsies. Subjective Date/time seen: 12/06/20 15:05 Interval history: Symptoms are unchanged vitals are stable. He is on going to undergo a bronchoscopy with biopsies and BAL today. Review of Systems Review of Systems: All systems reviewed & are unremarkable except as noted in HPI and below Exam Const: General: no acute distress Nutritional Appearance: well nourished Orientation/consciousness: patient oriented x3 HENMT: Head: normal to inspection and atraumatic Ears: hearing grossly normal bilaterally Face and sinus: normal facial exam Eyes: General: appearance normal, both eyes and all related structures Pupils: Equal, round and reactive pupils present EOM: EOMs intact bilaterally Neck: Neck: trachea midline and supple Chest: Chest palpation & inspection: normal inspection of the chest Resp: Effort & Inspection: normal respiratory effort and no respiratory distress Auscultation: rhonchi, wheezes and diminished lung sounds Cardio: Jugular venous distension: no JVD Rate: regular rate Heart sounds: S1 normal heart sound present, S2 normal heart sound present and no murmurs Peripheral pulses: Peripheral pulses 2+ throughout GI: GI Palp: No abdominal tenderness Auscultation: normal bowel sounds Skin: General skin exam: normal color Neuro: General: patient oriented x3 Cranial nerves: Yes Equal, round and reactive pupils present Extrem: General: normal to inspection and no clubbing, cyanosis or edema Objective Data Vital Signs Vital Signs: Vital Signs - 24 hr 05/17/21 15:17 12/06/20 16:57 12/06/20 17:01 Temperature 37.1 C Pulse Rate 67 69 69 Respiratory Rate 20 16 16 Blood Pressure 133/83 Pulse Oximetry 99 12/06/20 21:50 12/06/20 21:52 12/06/20 22:00 Temperature 36.2 C L Pulse Rate 73 78 82 Respiratory Rate 16 16 16 Blood Pressure 103/72 Pulse Oximetry 90 12/06/20 23:39 12/07/20 00:50 12/07/20 00:58 Temperature Pulse Rate 70 71 Respiratory Rate 16 16 Blood Pressure Pulse Oximetry 97 12/07/20 05:10 12/07/20 05:20 12/07/20 06:00 Temperature 36.6 C Pulse Rate 75 73 60 Respiratory Rate 16 18 20 Blood Pressure 126/78 Pulse Oximetry 98 12/07/20 07:59 12/07/20 08:12 12/07/20 12:10 Temperature Pulse Rate 71 73 68 Respiratory Rate 16 16 20 Blood Pressure Pulse Oximetry 98 12/07/20 12:19 12/07/20 14:00 Temperature 36.6 C Pulse Rate 75 86 Respiratory Rate 20 20 Blood Pressure 107/65 Pulse Oximetry 94 Intake/Output Intake/Output: Intake & Output 12/04/20 12/05/20 12/06/20 12/07/20 23:59 23:59 23:59 23:59 Intake Total 3065 1430 250 810 Output Total 4400 1600 1700 600 [facility] -[phone] 210 Meds/Results Medications: Active Medications Generic Name Dose Route Start Last Admin Trade Name Anibal PRN Reason Stop Dose Admin Acetaminophen 650 mg 12/04/20 15:
[2020-12-06] MEDS: BENZONATATE 100 MG CAPSULE 200 MG PO ×2 (16:00→21:33)
[2020-12-06] MEDS: ASCORBIC ACID 500 MG TABLET PO (16:03)
[2020-12-06] MEDS: FERROUS SULFATE 324 MG TABLET PO ×2 (16:04→18:03)
[2020-12-06 20:29] LABS: Eosinophils Bronchial Fluid 0 %; Monocytes Bronchial Fluid 0 %
[2020-12-06] MEDS: AMITRIPTYLINE HCL 25 MG TABLET 150 MG PO (21:20)
[2020-12-06] MEDS: DOXEPIN HCL 25 MG CAPSULE 100 MG PO (21:30)
[2020-12-07] VITALS (16 sets, daily range): BP systolic 107–126; BP diastolic 65–78; PULSE 60–94; RESP 16–20; TEMP 36.3–36.6; O2SAT 94–98
[2020-12-07] MEDS: IPRATROPIUM BR 0.02% INH SOLN 0.5 MG/2.5 ML VIAL INHALATION ×6 (00:50→20:16)
[2020-12-07] MEDS: ALBUTEROL SULFATE NEB 2.5 MG/0.5 ML INH INHALATION ×6 (00:50→20:16)
[2020-12-07] MEDS: MORPHINE SULFATE (*CRX) 30 MG TABCR PO ×3 (06:03→22:03)
[2020-12-07] MEDS: BENZONATATE 100 MG CAPSULE 200 MG PO ×3 (06:03→22:04)
[2020-12-07 06:20] LABS: Hematocrit 35.2 % (42.0-52.0); Hemoglobin 10.7 g/dL (14.0-18.0); Mean Corpuscular HGB Conc 30.4 g/dl (32-36); Mean Corpuscular Hemoglobin 23.7 pg (26-34); Mean Corpuscular Volume 77.9 fl (80-100); Mean Platelet Volume 9.6 fl (7.4-10.4); Platelet Count Result 393 k/mm3 (150-375); Red Blood Count 4.52 M/mm3 (4.6-6.20); Red Cell Distribution Width 18.6 % (11.5-14.5); White Blood Count 8.6 K/mm3 (4.5-10.0)
[2020-12-07 06:31] LABS: Anion Gap 4 mmol/L (8-16); Blood Urea Nitrogen 11 mg/dL (9-20); Calcium 8.7 mg/dL (8.4-10.2); Carbon Dioxide 28 mmol/L (22-30); Chloride 108 mmol/L (98-107); Estimated CRCL calculation 93 ml/min; Estimated Glomerular Filt Rate > 60; Glucose 76 mg/dL (75-110); Potassium 3.9 mmol/L (3.4-5.0); Sodium 140 mmol/L (137-145)
[2020-12-07] MEDS: BUDESONIDE RESPULE NEB 0.5 MG/2 ML AMP INHALATION ×2 (07:59→20:16)
--- NOTE | 2020-12-07 08:50 | WPDANESPN ---
Anes - Prog Note Post-Op Date/Time: 12/07/20 08:50 Cardiovascular status: normal Respiratory status: normal Airway patency: baseline Mental status: baseline Post-Op hydration status: normal Vital Signs: Last Vital Signs Temp 36.6 C 12/07/20 06:00 Pulse 73 12/07/20 08:12 Resp 16 12/07/20 08:12 BP 126/78 12/07/20 06:00 Pulse Ox 98 12/07/20 07:59 Pain Score (VAS): 0 I/O: Intake & Output 12/06/20 12/07/20 12/07/20 23:59 07:59 15:59 Intake Total 450 Output Total 1100 600 Balance -1100 -150 Laboratory Tests 12/07/20 05:54 12/07/20 05:54 12/06/20 12/06/20 12/06/20 06:06 13:26 13:26 WBC RBC Hgb Hct MCV MCH MCHC RDW Plt Count MPV Sodium Potassium Chloride Carbon Dioxide Anion Gap BUN Creatinine Estim Creat Clear Calc Estimated GFR Glucose Calcium Albumin 3.4 L Bronch Specimen Source Bronchial Fluid Color Bronchial Fluid Appearance Bronchial Neutrophils Bronchial Lymphocytes Bronchial Monocytes Bronchial Eosinophils Bronchial Macrophages Bronchial Other Cells C. pneumoniae DNA (PCR) L. pneumophila DFA M.pneumoniae DNA (PCR) Pending Pneumocystis carinii Ag Pending 12/06/20 12/06/20 12/07/20 13:26 13:26 05:54 WBC 8.6 RBC 4.52 L Hgb 10.7 L Hct 35.2 L MCV 77.9 L MCH 23.7 L MCHC 30.4 L RDW 18.6 H Plt Count 393 H MPV 9.6 Sodium Potassium Chloride Carbon Dioxide Anion Gap BUN Creatinine Estim Creat Clear Calc Estimated GFR Glucose Calcium Albumin Bronch Specimen Source Bronchial lavage Bronchial Fluid Color Colorless Bronchial Fluid Appearance Clear Bronchial Neutrophils 63 Bronchial Lymphocytes 4 Bronchial Monocytes 0 Bronchial Eosinophils 0 Bronchial Macrophages 10 Bronchial Other Cells 23 C. pneumoniae DNA (PCR) Pending L. pneumophila DFA Pending M.pneumoniae DNA (PCR) Pneumocystis carinii Ag 12/07/20 05:54 WBC RBC Hgb Hct MCV MCH MCHC RDW Plt Count MPV Sodium 140 Potassium 3.9 Chloride 108 H Carbon Dioxide 28 Anion Gap 4 L BUN 11 Creatinine 0.90 Estim Creat Clear Calc 93 Estimated GFR > 60 Glucose 76 Calcium 8.7 Albumin Bronch Specimen Source Bronchial Fluid Color Bronchial Fluid Appearance Bronchial Neutrophils Bronchial Lymphocytes Bronchial Monocytes Bronchial Eosinophils Bronchial Macrophages Bronchial Other Cells C. pneumoniae DNA (PCR) L. pneumophila DFA M.pneumoniae DNA (PCR) Pneumocystis carinii Ag Microbiology 11/30/20 23:53 Blood Blood Culture - Final 11/30/20 23:53 Blood Blood Culture - Final Post-procedural complaints: none Patient Feedback: Patient satisfied with anesthetic care.
[2020-12-07] MEDS: GABAPENTIN 400 MG CAPSULE 800 MG PO ×3 (09:03→17:42)
[2020-12-07] MEDS: VENLAFAXINE HCL XR 75 MG CAP.ER.24H PO (09:03)
[2020-12-07] MEDS: ATORVASTATIN 40 MG TABLET PO (09:03)
[2020-12-07] MEDS: FUROSEMIDE 20 MG TABLET PO (09:03)
[2020-12-07] MEDS: LOSARTAN POTASSIUM 100 MG TABLET PO (09:04)
[2020-12-07] MEDS: amLODIPine BESYLATE 5 MG TABLET PO (09:04)
[2020-12-07] MEDS: FERROUS SULFATE 324 MG TABLET PO ×3 (09:04→17:42)
[2020-12-07] MEDS: PANTOPRAZOLE 40 MG TABLET PO ×2 (09:04→22:04)
[2020-12-07] MEDS: ASCORBIC ACID 500 MG TABLET PO (12:48)
--- NOTE | 2020-12-07 15:08 | PM.PNPUL ---
Progress Note: A&P Assessment and Plan (1) Atypical pneumonia: Onset Date: ~11/2020 Code(s): J18.9 - Pneumonia, unspecified organism Status: Acute Assessment and Plan: This patient has atypical pneumonia with peripheral eosinophilia. the differential here is vast and include chronic eosinophilic pneumonia, drug induced eosinophilic pneumonia, atypical infections such as mycobacterial and fungal infections as well as coccidiomycosis, as well as other interstitial lung diseases. UIP and NSIP are very unlikely given the picture of the CT scan of the chest. He underwent a bronchoscopy yesterday with transbronchial biopsies and BAL. Still waiting on results from cultures, cell count with differential, histology and cytology. Continue to hold all antibiotics and systemic steroids for now as he is clinically stable. (2) Paradoxical vocal cord motion: Code(s): J38.3 - Other diseases of vocal cords Status: Acute Assessment and Plan: This was diagnosed by bronchoscopy yesterday and may mimic asthma or COPD symptoms Or even stridor. (3) Tracheobronchomalacia determined by bronchoscopy: Code(s): J39.8 - Other specified diseases of upper respiratory tract Status: Acute Assessment and Plan: Confirmed by bronchoscopy yesterday. Subjective Date/time seen: 12/07/20 15:08 Interval history: Complains of some left pleuritic chest pain with taking a deep breath or coughing but otherwise no new symptoms. No pneumothorax post bronchoscopy. Still waiting on results of bronchoscopy. Review of Systems Review of Systems: All systems reviewed & are unremarkable except as noted in HPI and below Exam Const: General: no acute distress Nutritional Appearance: well nourished Orientation/consciousness: patient oriented x3 HENMT: Head: normal to inspection and atraumatic Ears: hearing grossly normal bilaterally Face and sinus: normal facial exam Eyes: General: appearance normal, both eyes and all related structures Pupils: Equal, round and reactive pupils present EOM: EOMs intact bilaterally Neck: Neck: trachea midline and supple Chest: Chest palpation & inspection: normal inspection of the chest Resp: Effort & Inspection: normal respiratory effort and no respiratory distress Auscultation: rhonchi, wheezes and diminished lung sounds Cardio: Jugular venous distension: no JVD Rate: regular rate Heart sounds: S1 normal heart sound present, S2 normal heart sound present and no murmurs Peripheral pulses: Peripheral pulses 2+ throughout GI: GI Palp: No abdominal tenderness Auscultation: normal bowel sounds Skin: General skin exam: normal color Neuro: General: patient oriented x3 Cranial nerves: Yes Equal, round and reactive pupils present Extrem: General: normal to inspection and no clubbing, cyanosis or edema Objective Data Vital Signs Vital Signs: Vital Signs - 24 hr 12/06/20 15:17 12/06/20 16:57 12/06/20 17:01 Temperature 37.1 C Pulse Rate 67 69 69 Respiratory Rate 20 16 16 Blood Pressure 133/83 Pulse Oximetry 99 12/06/20 21:50 12/06/20 21:52 12/06/20 22:00 Temperature 36.2 C L Pulse Rate 73 78 82 Respiratory Rate 16 16 16 Blood Pressure 103/72 Pulse Oximetry 90 12/06/20 23:39 12/07/20 00:50 12/07/20 00:58 Temperature Pulse Rate 70 71 Respiratory Rate 16 16 Blood Pressure Pulse Oximetry 97 12/07/20 05:10 12/07/20 05:20 12/07/20 06:00 Temperature 36.6 C Pulse Rate 75 73 60 Respiratory Rate 16 18 20 Blood Pressure 126/78 Pulse Oximetry 98 12/07/20 07:59 12/07/20 08:12 12/07/20 12:10 Temperature Pulse Rate 71 73 68 Respiratory Rate 16 16 20 Blood Pressure Pulse Oximetry 98 12/07/20 12:19 12/07/20 14:00 Temperature 36.6 C Pulse Rate 75 86 Respiratory Rate 20 20 Blood Pressure 107/65 Pulse Oximetry 94 Intake/Output Intake/Output: Intake & Output 12/04/20 12/05/20 12/06/20 05
--- NOTE | 2020-12-07 16:19 | PM.IMPN ---
Progress Note: A&P Assessment and Plan (1) Acute and chronic respiratory failure ([id number]): Code(s): J96.20 - Acute and chronic respiratory failure, unspecified whether with hypoxia or hypercapnia Status: Acute Assessment and Plan: Patient chronically on nocturnal oxygen at home, 4L. He was requiring 2 L O2 at rest, but has been weaned to room air. Could be secondary to underlying aspiration infection vs CHF exacerbation versus COPD exacerbation. Repeat CXR 12/04/20 showed persistent extensive bilateral pulmonary infiltrates, increased in the right lower lung since 12/02/2020. Pulmonology recommends continuing Duonebs to Q4HRT, Budesonide 0.5 mg Q12hrs. Discontinued IV Zosyn and IV Solu-medrol 40 mg Q6hrs on 12/05/20. Discontinued PO Azithromycin 12/06/20. Bronchoscopy completed on 12/06/2020 with results pending Continue supplemental O2 as needed. Currently on room air at rest. He does require 6 L O2 at night. Will obtain home O2 eval with hopeful discharge tomorrow if remaining stable Appreciate pulmonology recommendations (2) Syncope and collapse: Code(s): R55 - Syncope and collapse Status: Acute Assessment and Plan: Likely secondary to hypovolemia secondary to acute on chronic blood loss anemia vs arrhythmia. Patient had similar symptoms back in July 2020 at [facility] and had a stent placed to RCA at that time. Telemetry was reviewed with no evidence of arrhythmias. Orthostatics were positive which could be from acute anemia and dehydration. He was rehydrated and transfused and BP is have improved. Appreciate cardiology recommendations. Repeat Echocardiogram showed normal EF and grade 1 diastolic dysfunction Continue Reji Villarreal PT/OT will be ordered for monitoring and therapy (3) Acute on chronic diastolic CHF (congestive heart failure): Code(s): I50.33 - Acute on chronic diastolic (congestive) heart failure Status: Acute Assessment and Plan: The patient with symptoms of orthopnea, dyspnea on exertion, elevated BNP and chest x-ray showing possible edema. Echo reviewed. Symptoms have improved and he appears euvolemic at this time. Appreciate cardiology input Continue monitoring volume status closely with daily weights and I&Os Continue Lasix 20 mg daily (4) Acute on chronic anemia: Code(s): D64.9 - Anemia, unspecified Status: Acute Assessment and Plan: Review of prior records demonstrates baseline hemoglobin around 12.0. Hemoglobin was significantly decreased on presentation he was transfuse 1 unit PRBC on 12/01/2020. Iron panel suggest iron deficiency anemia. Patient is on anticoagulation due to history of pulmonary embolism/DVT in the past. 12/02/2020 with no evidence of blood loss Gastroenterology and hematology following. Input appreciated. Xarelto on hold. Plan to resume when okay from cardiology/hematology/pulmonology standpoint PO Ferrous Sulfate 325 mg TID and Vitamin C 500 mg daily, recommended by Hematology. Recommend follow up in the office for further evaluation. He received 3 days of IV Venofer Continue PPI 40 mg twice daily He will need capsule endoscopy as outpatient (5) Recurrent pneumonia: Code(s): J18.9 - Pneumonia, unspecified organism Status: Acute Assessment and Plan: Suspicious for aspiration pneumonia due to gastroesophageal reflux disease. Patient has had a large workup done at [facility]'s GI specialist. Patient was seen here February 2020 with aspiration pneumonia and had evaluation with our drafting engineer. Chest x-ray and CT chest cannot exclude diffuse infiltrates from infection vs edema. Repeat CXR showed extensive bilateral pulmonary infiltrates increase in right lower lung. Continue soft and Bite Sized diet per ST recommendations Pulmonology following input is appreciated Awaiting results from bronchoscopy. Holding antibiotics at this time. Jazmin
[2020-12-07] MEDS: AMITRIPTYLINE HCL 25 MG TABLET 150 MG PO (22:03)
[2020-12-07] MEDS: DOXEPIN HCL 25 MG CAPSULE 100 MG PO (22:04)
--- NOTE | 2020-12-08 02:39 | PCRCNOTE ---
Window of time for administration has passed. See next scheduled administration.
[2020-12-08] MEDS: ALBUTEROL SULFATE NEB 2.5 MG/0.5 ML INH INHALATION ×2 (03:03→08:58)
[2020-12-08 03:04] VITALS: PULSE 73; RESP 20
[2020-12-08] MEDS: IPRATROPIUM BR 0.02% INH SOLN 0.5 MG/2.5 ML VIAL INHALATION ×2 (03:04→08:58)
[2020-12-08] MEDS: LACTATED RINGERS 1,000 ML 75 ML IV CONT (03:47)
[2020-12-08] MEDS: MORPHINE SULFATE (*CRX) 30 MG TABCR PO (05:45)
[2020-12-08] MEDS: BENZONATATE 100 MG CAPSULE 200 MG PO (05:46)
[2020-12-08 06:00] VITALS: BP 101/75; PULSE 56; RESP 18; TEMP 36.2; O2SAT 98
[2020-12-08 06:14] LABS: Hematocrit 34.8 % (42.0-52.0); Hemoglobin 10.7 g/dL (14.0-18.0); Mean Corpuscular HGB Conc 30.7 g/dl (32-36); Mean Corpuscular Hemoglobin 24.3 pg (26-34); Mean Corpuscular Volume 79.1 fl (80-100); Mean Platelet Volume 9.4 fl (7.4-10.4); Platelet Count Result 374 k/mm3 (150-375); Red Cell Distribution Width 19.1 % (11.5-14.5); White Blood Count 8.9 K/mm3 (4.5-10.0)
[2020-12-08 06:20] LABS: Anion Gap 5 mmol/L (8-16); Blood Urea Nitrogen 12 mg/dL (9-20); Calcium 8.5 mg/dL (8.4-10.2); Carbon Dioxide 26 mmol/L (22-30); Chloride 108 mmol/L (98-107); Estimated CRCL calculation 92 ml/min; Estimated Glomerular Filt Rate > 60; Glucose 89 mg/dL (75-110); Potassium 4.1 mmol/L (3.4-5.0); Sodium 139 mmol/L (137-145)
[2020-12-08] MEDS: FERROUS SULFATE 324 MG TABLET PO ×2 (08:39→12:07)
[2020-12-08] MEDS: GABAPENTIN 400 MG CAPSULE 800 MG PO ×2 (08:39→12:07)
[2020-12-08] MEDS: VENLAFAXINE HCL XR 75 MG CAP.ER.24H PO (08:39)
[2020-12-08] MEDS: FUROSEMIDE 20 MG TABLET PO (08:40)
[2020-12-08] MEDS: LOSARTAN POTASSIUM 100 MG TABLET PO (08:40)
[2020-12-08] MEDS: ATORVASTATIN 40 MG TABLET PO (08:40)
[2020-12-08] MEDS: amLODIPine BESYLATE 5 MG TABLET PO (08:40)
[2020-12-08] MEDS: PANTOPRAZOLE 40 MG TABLET PO (08:40)
[2020-12-08] MEDS: ASCORBIC ACID 500 MG TABLET PO (08:40)
[2020-12-08] MEDS: guaiFENesin 12 HR 600 MG TABCR PO (08:41)
[2020-12-08 08:58] VITALS: PULSE 60; RESP 20
[2020-12-08] MEDS: BUDESONIDE RESPULE NEB 0.5 MG/2 ML AMP INHALATION (08:58)
[2020-12-08 09:00] VITALS: O2SAT 95
[2020-12-08 09:13] VITALS: PULSE 70; RESP 20
--- NOTE | 2020-12-08 11:02 | PCRCNOTE ---
Attempted to perform home O2 eval, pt declined. Pt up in room, on room air SPO2 94%. Pt states he does not need a home O2 evaluation.
--- NOTE | 2020-12-08 12:47 | PM.PNPUL ---
Progress Note: A&P Assessment and Plan (1) Atypical pneumonia: Onset Date: ~11/2020 Code(s): J18.9 - Pneumonia, unspecified organism Status: Acute Assessment and Plan: This patient has atypical pneumonia with peripheral eosinophilia. the differential here is vast and include chronic eosinophilic pneumonia, drug induced eosinophilic pneumonia, atypical infections such as mycobacterial and fungal infections as well as coccidiomycosis, as well as other interstitial lung diseases. UIP and NSIP are very unlikely given the picture of the CT scan of the chest. He underwent a bronchoscopy yesterday with transbronchial biopsies and BAL. Still waiting on results from cultures, cell count with differential, histology and cytology. Continue to hold all antibiotics and systemic steroids for now as he is clinically stable. (2) Paradoxical vocal cord motion: Code(s): J38.3 - Other diseases of vocal cords Status: Acute Assessment and Plan: This was diagnosed by bronchoscopy yesterday and may mimic asthma or COPD symptoms. The patient has a 7-8 pack year smoking history hence COPD is unlikely. Furthermore he tells me that his bronchodilators do not help his breathing. I would recommend discontinue all bronchodilators prn albuterol. (3) Tracheobronchomalacia determined by bronchoscopy: Code(s): J39.8 - Other specified diseases of upper respiratory tract Status: Acute Assessment and Plan: Confirmed by bronchoscopy. No effective evidence based treatment is available at this time. Stent placement is grade 2C recommendation and is based on weak observational studies. Subjective Date/time seen: 12/08/20 12:47 Interval history: Spoke to patient today. Symptoms are unchanged but are mild and tolerable. He is on room air and not hypoxic. Vitals are stable. Bronchoscopy results have been negative thus far but GMS and AFB stains are pending. Serology and other autoimmune workup is also pending. The patient will follow up with us in a couple of weeks at which time if all bronchoscopic results are negative a referral for a VATS lung biopsy will be made. Review of Systems Review of Systems: All systems reviewed & are unremarkable except as noted in HPI and below Exam Const: General: no acute distress Nutritional Appearance: well nourished Orientation/consciousness: patient oriented x3 HENMT: Head: normal to inspection and atraumatic Ears: hearing grossly normal bilaterally Face and sinus: normal facial exam Eyes: General: appearance normal, both eyes and all related structures Pupils: Equal, round and reactive pupils present EOM: EOMs intact bilaterally Neck: Neck: trachea midline and supple Chest: Chest palpation & inspection: normal inspection of the chest Resp: Effort & Inspection: normal respiratory effort and no respiratory distress Auscultation: rhonchi, wheezes and diminished lung sounds Cardio: Jugular venous distension: no JVD Rate: regular rate Heart sounds: S1 normal heart sound present, S2 normal heart sound present and no murmurs Peripheral pulses: Peripheral pulses 2+ throughout GI: GI Palp: No abdominal tenderness Auscultation: normal bowel sounds Skin: General skin exam: normal color Neuro: General: patient oriented x3 Cranial nerves: Yes Equal, round and reactive pupils present Extrem: General: normal to inspection and no clubbing, cyanosis or edema Objective Data Vital Signs Vital Signs: Vital Signs - 24 hr 12/07/20 14:00 12/07/20 15:56 12/07/20 16:02 Temperature 36.6 C Pulse Rate 86 90 89 Respiratory Rate 20 20 20 Blood Pressure 107/65 Pulse Oximetry 94 12/07/20 20:16 12/07/20 20:34 12/07/20 20:36 Temperature Pulse Rate 94 92 94 Respiratory Rate 20 20 Blood Pressure Pulse Oximetry 94 12/07/20 21:35 12/08/20 03:04 12/08/20 06:00 Temperature 36.3 C L 36.2 C L Pulse Rate 94 73 56 L Respiratory Rate 18 20 18
--- NOTE | 2020-12-08 13:02 | P.PNONC_ITS ---
Progress Note: A/P - Additional Plan Microcytic anemia secondary to iron deficiency of unclear etiology. EGD was performed that showed hiatal hernia. Patient is going to have capsule enteroscopy as an outpatient. He will continue oral iron with ferrous sulfate 325 mg t.i.d. with vitamin-C. I will see him back in my office in couple of weeks to repeat the labs. History of pulmonary embolism. Last PE was in 2014. CT chest showed no PE. Doppler studies showed no blood clot. Given this history of iron deficiency anemia I will recommend discontinuation of Xarelto. Coronary artery disease status post stent placement. Patient is on aspirin. COPD/CHF. Patient will follow-up with Pulmonary Service. - Time Spent With Patient Total time spent is greater than 50% in coordination of care (as documented) at patient's floor/unit and/or counseling patient: 15 - 25 minutes Subjective Interval history: Iron deficiency anemia. History of recurrent pulmonary embolism Coronary artery disease status post stent placement Review of Systems - Review of Systems Patient is feeling better and more energetic. He denies any melena hematochezia. He has loose stool. Patient is ready to be discharged home tovlad gonzalez. - Neurologic Reports system reviewed and no additional complaints, except as documented, Reports hearing normal, Denies headache(s), Denies loss of vision, Denies memory loss, Denies weakness Exam Vital signs: Temp Pulse Resp BP Pulse Ox 36.2 C L 70 20 101/75 95 12/08/20 06:00 12/08/20 09:13 12/08/20 09:13 12/08/20 06:00 12/08/20 09:00 Narrative: Lungs are clear to auscultation bilaterally Cardiovascular regular rate rhythm no murmurs Abdomen soft nontender nondistended bowel sounds are positive Extremities no edema PN: Objective Data - Labs CBC & Chem 7: 12/08/20 05:44 12/08/20 05:44 Labs: Laboratory Results - last 24 hr 12/06/20 12/08/20 12/08/20 13:26 05:44 05:44 WBC 8.9 RBC 4.40 L Hgb 10.7 L Hct 34.8 L MCV 79.1 L MCH 24.3 L MCHC 30.7 L RDW 19.1 H Plt Count 374 MPV 9.4 Sodium 139 Potassium 4.1 Chloride 108 H Carbon Dioxide 26 Anion Gap 5 L BUN 12 Creatinine 0.90 Estim Creat Clear Calc 92 Estimated GFR > 60 Glucose 89 Calcium 8.5 L. pneumophila DFA see below
--- NOTE | 2020-12-08 13:04 | PM.DS ---
DS: Admitting Diagnosis Admitting Diagnosis Admitting Diagnosis: Syncope DS: Discharge Diagnosis Discharge Diagnosis (1) Acute and chronic respiratory failure ([id number]): Code(s): J96.20 - Acute and chronic respiratory failure, unspecified whether with hypoxia or hypercapnia Status: Acute Assessment and Plan: Patient chronically on nocturnal oxygen at home, typically 4 L. He was initially requiring 2 L O2 at rest. He was seen in consultation by pulmonology. Etiology is unclear. He underwent bronchoscopy with BAL. Pathology negative for malignancy with additional cultures pending. If this workup is unrevealing, he will be referred for VATS lung biopsy. His nighttime oxygen was increased to 6 L based on results of overnight oximetry test. Home O2 eval was ordered but patient refused stating he already has home oxygen. He had been weaned to room air during the daytime. He will follow-up with pulmonology as an outpatient. (2) Syncope and collapse: Code(s): R55 - Syncope and collapse Status: Acute Assessment and Plan: Likely secondary to hypovolemia secondary to acute on chronic anemia. Telemetry was reviewed with no evidence of arrhythmias. Orthostatics were positive which could be from acute anemia and dehydration. He was rehydrated and transfused and BP improved. He was seen in consultation by cardiology and repeat Echocardiogram showed normal EF and grade 1 diastolic dysfunction. He will follow up with cardiology as an outpatient for further monitoring. Continue MARIAH hose. Encouraged adequate PO intake. (3) Acute on chronic diastolic CHF (congestive heart failure): Code(s): I50.33 - Acute on chronic diastolic (congestive) heart failure Status: Acute Assessment and Plan: The patient with symptoms of orthopnea, dyspnea on exertion, elevated BNP and chest x-ray showing possible edema. Echo reviewed. He was diuresed and appeared euvolemic. Continue Lasix 20 mg daily. Cardiology follow up outpatient. (4) Acute on chronic anemia: Code(s): D64.9 - Anemia, unspecified Status: Acute Assessment and Plan: Review of prior records demonstrates baseline hemoglobin around 12.0. Hemoglobin was significantly decreased on presentation and he was transfused 1 unit PRBC on 12/01/2020. Iron panel suggest iron deficiency anemia. EGD performed on 12/02/2020 with no evidence of blood loss. He was seen in consultation by Gastroenterology and Hematology. Xarelto was discontinued given remote history of PE >10 years ago. He received 3 doses of IV Venofer and was started on PO Ferrous Sulfate 325 mg TID and Vitamin C 500 mg daily, recommended by Hematology. He will follow-up with hematology as an outpatient for further lab testing. He will also follow-up with gastroenterology to obtain a capsule endoscopy. H&H stabilized. Continue PPI 40 mg twice daily (5) Recurrent pneumonia: Code(s): J18.9 - Pneumonia, unspecified organism Status: Acute Assessment and Plan: Suspicious for aspiration pneumonia due to gastroesophageal reflux disease. Patient has had a large workup done at [facility]'s GI specialist. Patient was seen here in February 2020 with aspiration pneumonia. Chest x-ray and CT chest cannot exclude diffuse infiltrates from infection vs edema. Repeat CXR showed extensive bilateral pulmonary infiltrates increase in right lower lung. He was treated with IV Zosyn and Azithromycin. Follow-up with pulmonology as above for further evaluation. Aspiration precautions discussed. (6) Coronary artery disease: Code(s): I25.10 - Atherosclerotic heart disease of [place] coronary artery without angina pectoris Status: Acute Assessment and Plan: History of PCI July 2020. He presented with chest pain, however no EKG changes were noted and troponins were negative. He reported he has had chest pain in the past with syncopal episodes. He was ev
[2020-12-09 21:20] LABS: Anti Cyclic Citrullinated Pept 20 Units (<20)
[2020-12-10 10:38] LABS: ANCA Screen Negative (Negative)
[2020-12-14 20:25] LABS: Myeloperoxidase Antibody <1.0 AI (<1.0)
[2020-12-15 06:46] LABS: Anti Glomerular Basement Memb <1.0 AI (<1.0)
[2020-12-16 09:07] LABS: ANA Cascade Screen Negative (Negative)
[2020-12-23 13:21] LABS: Blastomyces Antibody Negative
== END 2020-12-08 13:50 | disposition home or self-care (01) | DRG 166 ==
LOC: ANHED 20:19 → ANH2MED 22:07 → ANH3MEDSUR 22:46
PROVIDERS: Internal Medicine Critical Care Medicine; Internal Medicine Gastroenterology; Internal Medicine Pulmonary Disease; Physician Assistant; Admitting Provider Internal Medicine; Emergency Provider Emergency Medicine; Visit Provider Physician Assistant
PROC: 0DJ08ZZ Inspection of Upper Intestinal Tract, Via Natural or Artificial Opening Endoscopic (ICD-10-PCS; CPT 43235; principal; 2020-12-02 12:00)
PROC: 0BJ08ZZ Inspection of Tracheobronchial Tree, Via Natural or Artificial Opening Endoscopic (ICD-10-PCS; CPT 31622; principal; 2020-12-06 14:00)
DX: J18.9 Pneumonia, unspecified organism (principal); I50.33 Acute on chronic diastolic (congestive) heart failure; J96.20 Acute and chronic respiratory failure, unspecified whether with hypoxia or hypercapnia; J44.0 Chronic obstructive pulmonary disease with (acute) lower respiratory infection; K92.1 Melena; J39.8 Other specified diseases of upper respiratory tract; J38.3 Other diseases of vocal cords; D50.9 Iron deficiency anemia, unspecified; Z20.822 Contact with and (suspected) exposure to COVID-19; I11.0 Hypertensive heart disease with heart failure; Z99.81 Dependence on supplemental oxygen; I95.1 Orthostatic hypotension; K21.9 Gastro-esophageal reflux disease without esophagitis; K44.9 Diaphragmatic hernia without obstruction or gangrene; R07.9 Chest pain, unspecified; R91.8 Other nonspecific abnormal finding of lung field; G47.10 Hypersomnia, unspecified; R05 Cough; R13.10 Dysphagia, unspecified; I25.10 Atherosclerotic heart disease of native coronary artery without angina pectoris; I25.2 Old myocardial infarction; E78.5 Hyperlipidemia, unspecified; M54.9 Dorsalgia, unspecified; G89.29 Other chronic pain; Z79.01 Long term (current) use of anticoagulants; Z79.82 Long term (current) use of aspirin; Z79.891 Long term (current) use of opiate analgesic; Z79.899 Other long term (current) drug therapy; Z86.711 Personal history of pulmonary embolism; Z87.01 Personal history of pneumonia (recurrent); Z87.820 Personal history of traumatic brain injury; Z87.891 Personal history of nicotine dependence; Z95.5 Presence of coronary angioplasty implant and graft
CPT/HCPCS: 36415; 36430; 36600; 71045; 71275; 80048; 80053; 81479; 82040; 82607; 82747; 82805; 83520; 83540; 83550; 83735; 83880; 84439; 84443; 84466; 84484; 85014; 85018; 85025; 85027; 85055; 85380; 85610; 85730; 85999; 86021; 86038; 86200; 86235; 86612; 86698; 86738; 86850; 86860; 86870; 86880; 86900; 86901; 86902; 86905; 86920; 86922; 86971; 87015; 87040; 87102; 87116; 87206; 87279; 87281; 87486; 87581; 88104; 88108; 88184; 88304; 88305; 88312; 92610; 93005; 93306; 93970; 94640; 94667; 94668; 94762; 96361; 96365; 96366; 96367; 96375; 96376; 97161; 97165; 99285; A9270; C9113; C9803; G0378; J0456; J1100; J1756; J1940; J2001; J2405; J2543; J2704; J2920; J3010; J7030; J7040; J7050; J7120; P9016; Q9967; U0003; U0005